=== PATIENT | female | born 1935 | race Two or more races ===

== ENCOUNTER 2025-06-02 10:56 | Inpatient (IN) | payer MEDICAID, OTHER ==
[~2025-06-02] VITALS: Ht 160 cm; Wt 44.5 kg
--- NOTE | 2025-06-02 11:11 | ECG ---
[facility] Test Date: 2025-06-02 Test Time: 11:10:12 Pat Name: KARTHIK BROCK Department: ED Room: 0220 Gender: F Linux Engineer: roderick : 1935 Requested By: POLO HWANG Order Number: [id number] Reading MD: Ricky Perez Measurements Intervals [place] Rate: 59 P: 0 CO: 163 QRS: 105 QRSD: 104 T: 125 QT: 406 QTc: 403 Interpretive Statements Right and left arm electrode reversal, interpretation assumes no reversal Sinus rhythm Right axis deviation Abnormal T, consider ischemia, lateral leads Baseline wander in lead(s) III Electronically Signed On 06-05-2025 18:15:05 PDT by Ricky Perez Please click the below link to view image of tracing.
--- NOTE | 2025-06-02 11:14 | ED.PDOC ---
GI ASSESSMENT HPI Comments 89-year-old female presents with a chief complaint of abdominal pain with associated nausea and vomiting. Patient states that her pain is localized to her epigastric region, nonradiating, nonexertional, and rates her pain a 8/10. Patient has a history of pancreatitis according to family. Patient was seen by her PMD yesterday and had a COVID-19 test done and it was negative. Patient recently travelled to [place] in February 2025. Patient is afebrile at 97.4F. 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 Family History Family History: Reviewed,noncontributory to illness Social History Smoker: Non-Smoker Alcohol: Denies ETOH Use Drugs: Denies Drug Use Lives In: Home Constitutional: denies: chills, diaphoresis, fatigue, fever, malaise, sweats, weakness, others EENTM: denies: blurred vision, double vision, ear bleeding, ear discharge, ear drainage, ear pain, ear ringing, eye pain, eye redness, hearing loss, mouth pain, mouth swelling, nasal discharge, nose bleeding, nose congestion, nose pain, photophobia, tearing, throat pain, throat swelling, voice changes, others Respiratory: denies: cough, hemoptysis, orthopnea, SOB at rest, shortness of breath, SOB with excertion, stridor, wheezing, others Cardiovascular: denies: chest pain, dizzy spells, diaphoresis, Dyspnea on exertion, edema, irregular heart beat, left arm pain, lightheadedness, palpitations, PND, syncope, others Gastrointestinal: reports: abdominal pain, nausea, vomiting; denies: abdomen distended, blood streaked bowels, constipated, diarrhea, dysphagia, difficulty swallowing, hematemesis, melena, poor appetite, poor fluid intake, rectal bleeding, rectal pain, others Genitourinary: denies: abnormal vagina bleeding, burning, dyspareunia, dysuria, flank pain, frequency, hematuria, incontinence, pain, , vagina discharge, urgency, others Neurological: denies: dizziness, fainting, headache, left sided numbness, left sided weakness, numbness, paresthesia, pre-existing deficit, right sided numb ness, right sided weakness, seizure, speech problems, tingling, tremors, weakness, others Musculoskeletal: denies: back pain, gout, joint pain, joint swelling, muscle pain, muscle stiffness, neck pain, others Integumetry: denies: bruises, change in color, change in hair/nails, dryness, laceration, lesions, lumps, rash, wounds, others Allergic/Immunocompromised: denies: Difficulty Healing, Frequent Infections, Hives, Itching, others Hematologic/Lymphatic: denies: anemia, blood clots, easy bleeding, easy bruising, swollen glands, others Endocrine: denies: excessive hunger, excessive sweating, excessive thirst, excessive urination, flushing, intolerance to cold, intolerance to heat, unexplained weight gain, unexplained weight loss, others Psychiatric: denies: anxiety, bipolar disorder, depression, hopeless, panic disorder, schizophrenia, sleepless, suicidal, others All Other Systems: Reviewed and Negative Physical Exam General Appearance: Moderate Distress (Suyo-qe-tdxigehu distress due to epigastric pain concerns.), Normal HEENT: Normal ENT Inspection, Pharynx Normal, TMs Normal Neck: Full Range of Motion, Non-Tender, Normal, Normal Inspection Respiratory: Chest Non-Tender, Lungs Clear, No Accessory Muscle Use, No Respiratory Distress, Normal Breath Sounds Cardiovascular: No Edema, No JVD, No Murmur, No Gallop, Normal Peripheral Pulses, Regular Rate/Rhythm Breast Exam: Deferred Gastrointestinal: No Pulsatile Mass, Normal Bowel Sounds, Other (Diffuse epigastric tenderness to palpation throughout. Abdomen was mildly rigid.) Genitalia: Deferred Pelvic: Deferred Rectal: Deferred Extremities: No calf tenderness, Normal capillary refill, Normal inspection, Normal range of motion, Non-tender, No pedal edema Musculoskeletal : Apperance: Normal Neurologic: Alert, No Motor Deficits, Normal Affect, Normal Mood, No Sensory Deficits Cerebellar Function: NOT DONE Reflexes: NOT DONE Skin: Dry, Normal Color, Warm Lymphatic: No Adenopathy Was a procedure done? Was a procedure done?: No GI differential Dx Differential Diagnosis: Bowel Obstruction, Cholangitis, Cholecystitis, Constipation, Gastritis/PUD, Gastroenteritis, Pancreatitis, UTI X-Ray, Labs, Meds, VS Vital Signs Date Time Temp Pulse Resp B/P (MAP) Pulse Ox O2 Delivery O2 Flow Rate FiO2 06/02/25 13:05 72 16 97 Room Air 06/02/25 12:48 97.9 72 18 144/48 (80) 97 97.9 06/02/25 11:10 59 06/02/25 10:59 97.0 62 16 148/57 97 97.0 Lab Test 06/02/25 12:39 06/02/25 11:45 Range/Units Troponin I High Sensitivity < 3 L < 3 L </=34 ng/L White Blood Count 19.2 H 4.4-10.8 10^3/uL Red Blood Count 3.66 L 4.0-5.20 10^6/uL Hemoglobin 11.4 L 12.2-16.2 g/dL Hematocrit 33.2 L 36.0-46.0 % Mean Corpuscular Volume 90.7 80.0-100.0 fL Mean Corpuscular Hemoglobin 31.1 28.0-32.0 pg Mean Corpuscular Hemoglobin Concent 34.3 32.0-36.0 g/dL Red Cell Distribution Width 12.9 11.8-14.3 % Platelet Count 222 140-450 10^3/uL Mean Platelet Volume 10.4 6.9-10.8 fL Neutrophils (%) (Auto) 85.4 H 37.0-80.0 % Lymphocytes (%) (Auto) 6.4 L 10.0-50.0 % Monocytes (%) (Auto) 7.9 0.0-12.0 % Eosinophils (%) (Auto) 0.1 0.0-7.0 % Basophils (%) (Auto) 0.2 0.0-2.0 % Neutrophils # (Auto) 16.4 H 1.6-8.6 10 ^3/uL Lymphocytes # (Auto) 1.2 0.4-5.4 10 ^3/uL Monocytes # (Auto) 1.5 H 0-1.3 10 ^3/uL Eosinophils # (Auto) 0 0-0.8 10 ^3/uL Basophils # (Auto) 0 0-0.2 10 ^3/uL Nucleated Red Blood Cells 0.0 % Sodium Level 139 136-145 mmol/L Potassium Level 4.1 3.5-5.1 mmol/L Chloride Level 106 98-107 mmol/L Carbon Dioxide Level 22 20-31 mmol/L Anion Gap 11 5-15 Blood Urea Nitrogen 27 H 9-23 mg/dL Creatinine 1.18 H 0.550-1.02 mg/dL Glomerular Filtration Rate Calc 45 >90 mL/min BUN/Creatinine Ratio 22.9 H 10.0-20.0 Serum Glucose 181 H 74-106 mg/dL Lactic Acid Level 2.4 *H 0.4-2.0 mmol/L Calcium Level 9.2 8.7-10.4 mg/dL Total Bilirubin 1.6 H 0.2-1.0 mg/dL Aspartate Amino Transferase (AST) 142 H 13-40 U/L Alanine Aminotransferase (ALT) 79 H 7-40 U/L Alkaline Phosphatase 158 H 46-116 U/L B-Type Natriuretic Peptide 165.24 0-100 pg/mL Total Protein 7.9 5.7-8.2 g/dL Albumin 4.6 3.2-4.8 g/dL Lipase > 3500 H 12-53 U/L Current Medications Medications (Trade) Dose Ordered Sig/Jorge Route Start Time Stop Time Status Last Admin Ondansetron HCl (Zofran) 4 mg ONCE ONCE IV 06/02/25 11:15 06/02/25 11:16 DC 06/02/25 13:42 Dicyclomine HCl (Bentyl Capsule) 10 mg ONCE ONCE PO 06/02/25 11:15 06/02/25 11:16 DC 06/02/25 12:56 X-Ray, Labs, Meds, VS Comment All studies performed of the ED today were evaluated by me personally. [place] [id number]. Anemia, what appears to be acute on chronic renal concerns as well as an elevated lactic acid and significant elevated lipase indicative of a pancreatitis event. Patient will be admitted for antibiotics and pain management concerns as well as possible nephro consult. Time of 1ST Reevaluation: 14:38 Reevaluation 1ST: Improved Consultation: PCP Patient Education/Counseling: Diagnosis, Treatment, Need For Follow Up Family Education/Counseling: Diagnosis, Treatment, No Family Present SEPSIS Sepsis Screen Date sepsis recognized/suspect: Jun 02, 2025 Time Sepsis recognized/suspect: 1104 Recent Procedure: No On Antibiotic Therapy: No Respiratory Rate >20: No Heart Rate >90: No Temp<36 C (96.8 F) or >38.3 C: No SBP <90 or MAP <65 mmHG: No New Acute Mental Status Change: No Is the patient on CPAP, BIPAP,: No Physician Orders Sodium Chloride 0.9% (06/02/25 11:15) Heplock Iv (06/02/25 ) Urinalysis (06/02/25 11:06) Troponin-I Hs (06/02/25 14:06) Vital Signs Date Time Temp Pulse Resp B/P (MAP) Pulse Ox O2 Delivery O2 Flow Rate FiO2 06/02/25 13:05 72 16 97 Room Air 06/02/25 12:48 97.9 72 18 144/48 (80) 97 97.9 06/02/25 11:10 59 06/02/25 10:59 97.0 62 16 148/57 97 97.0 Laboratory Tests Test 06/02/25 11:45 Lactic Acid Level 2.4 mmol/L (0.4-2.0) *H White Blood Count 19.2 10^3/uL (4.4-10.8) H Medications Medications Dose Ordered Sig/Jorge Route Start Time Stop Time Status Last Admin Dose Admin Dicyclomine HCl 10 mg ONCE ONCE PO 06/02/25 11:15 06/02/25 11:16 DC 06/02/25 12:56 Ondansetron HCl 4 mg ONCE ONCE IV 06/02/25 11:15 06/02/25 11:16 DC 06/02/25 13:42 Departure 1 Departure Time of Disposition: 14:38 Impression: Primary Impression: Pancreatitis Additional Impressions: [id number]-[id number] kidney injury Elevated lactic acid level Anemia Disposition: ADMITTED INPATIENT Condition: Stable Discharged With: Self, Relative Critical Care Note Critical Care Time?: No Stability Stability form required: No Heart Score Heart Score: Heart Score Response (Comments) Value History N/A 0 EKG N/A 0 Age N/A 0 Risk Factors N/A 0 Troponin N/A 0 Total 0 I personally scribed for POLO HWANG PAC ([email or web address]) on 06/02/25 at 11:14. Electronically submitted by Darshan Grady ([email or web address]). POLO HWANG PAC Jun 02, 2025 11:14
[2025-06-02] MEDS: SODIUM CHLORIDE 0.9% 1,000 ML IV ONE ×2 (11:15→20:46)
[2025-06-02 12:21] LABS: Hematocrit 33.2 % (36.0-46.0); Hemoglobin 11.4 g/dL (12.2-16.2); Mean Corpuscular Hemoglobin 31.1 pg (28.0-32.0); Mean Corpuscular Volume 90.7 fL (80.0-100.0); Nucleated Red Blood Cells % 0.0 %
[2025-06-02 12:25] LABS: Albumin 4.6 g/dL (3.2-4.8); Anion Gap 11 (5-15); BUN/Creatinine Ratio 22.9 (10.0-20.0); Calcium 9.2 mg/dL (8.7-10.4); Carbon Dioxide 22 mmol/L (20-31); Chloride 106 mmol/L (98-107); Potassium 4.1 mmol/L (3.5-5.1); Sodium 139 mmol/L (136-145); Total Protein 7.9 g/dL (5.7-8.2)
[2025-06-02 12:30] LABS: Alanine Aminotransferase 79 U/L (7-40); Alkaline Phosphatase 158 U/L (46-116); Bilirubin, Total 1.6 mg/dL (0.2-1.0); Blood Urea Nitrogen 27 mg/dL (9-23); Glucose 181 mg/dL (74-106)
[2025-06-02 12:33] LABS: Lactic Acid w/Reflex 2.4 mmol/L (0.4-2.0)
[2025-06-02 12:35] LABS: Lipase > 3500 U/L (12-53)
[2025-06-02] MEDS: DICYCLOMINE HCL 10 MG CAP PO ONE (12:56)
[2025-06-02] MEDS: ONDANSETRON HCL 4 MG/2 ML VIAL IV ONE (13:42)
[2025-06-02] MEDS ORDERED: PIPERACILLIN-TAZOB 3.375GM 100 ML IV ONE (14:45)
[2025-06-02] MEDS: MORPHINE SULFATE 4 MG/ML SYR/VIAL IV ONE (16:23)
[2025-06-02 16:34] VITALS: PULSE 73; RESP 14; O2SAT 97
--- NOTE | 2025-06-02 18:07 | DVHHP2 ---
Admitting Diagnosis: nausea and vomiting History of Present Illness 89-year-old female presents with a chief complaint of abdominal pain with associated nausea and vomiting. Patient states that her pain is localized to her epigastric region, nonradiating, nonexertional, and rates her pain a 8/10. Patient has a history of pancreatitis according to family. Patient was seen by her PMD yesterday and had a COVID-19 test done and it was negative. Patient recently travelled to [place] in February 2025. Patient is afebrile at 97.4F. 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 Mild distress HEENT-atraumatic normocephalic Heart-regular rate and rhythm Lungs clear to auscultate Abdomen soft, tender to palpate, nondistended Musculoskeletal-no edema cyanosis Neuro-AO x3, no focal deficits SEPSIS Sepsis Screen Date sepsis recognized/suspect: Jun 02, 2025 Time Sepsis recognized/suspect: 1104 Recent Procedure: No On Antibiotic Therapy: No Respiratory Rate >20: No Heart Rate >90: No Temp<36 C (96.8 F) or >38.3 C: No SBP <90 or MAP <65 mmHG: No New Acute Mental Status Change: No Is the patient on CPAP, BIPAP,: No Physician Orders Heplock Iv (06/02/25 ) Urinalysis (06/02/25 11:06) Ct Ab Pel Wo Con-No Oral Or Iv (06/02/25 19:17) Abdomen Limited (06/02/25 19:17) NS (06/02/25 19:30) Ceftriaxone Ivpb Rocephin (06/03/25 09:00) Metronidazole Ivpb Flagyl (06/02/25 22:00) Complete Blood Count (06/03/25 05:00) Complete Blood Count (06/04/25 05:00) Complete Blood Count (06/05/25 05:00) Complete Blood Count (06/06/25 05:00) Complete Blood Count (06/07/25 05:00) Comprehensive Metabolic Panel (06/03/25 05:00) Comprehensive Metabolic Panel (06/04/25 05:00) Comprehensive Metabolic Panel (06/05/25 05:00) Comprehensive Metabolic Panel (06/06/25 05:00) Comprehensive Metabolic Panel (06/07/25 05:00) Magnesium (06/03/25 05:00) Magnesium (06/04/25 05:00) Magnesium (06/05/25 05:00) Magnesium (06/06/25 05:00) Magnesium (06/07/25 05:00) Admit (06/02/25 19:17) Code Status (06/02/25:17) Vital Signs .PER UNIT PROTOCOL (06/02/25 19:17) Review Orders With Adm.Md (06/02/25 19:17) Encourage Activity As Tolerate (06/02/25 19:17) Npo (Nothing By Mouth) Diet (06/03/25 Breakfast) Sodium Chloride Lock (Saline Lock Ns) (06/02/25 22:00) Docusate Sodium Capsule (Colace Capsule) (06/02/25 19:30) Acetaminophen Tablet (Tylenol Tablet) (06/02/25 19:30) Notify Md Of Changes From Base (06/02/25 19:17) Advance Directive (06/02/25 19:17) Patient Condition (06/02/25 19:17) Allergies (06/02/25 19:17) Hydrocodone-Acet 5/325mg Tab (Purdys 5/32 (06/02/25 19:30) Ondansetron Hcl (Zofran) (06/02/25 19:30) Lovenox 40mg (06/03/25 10:00) Vital Signs Date Time Temp Pulse Resp B/P (MAP) Pulse Ox O2 Delivery O2 Flow Rate FiO2 06/02/25 17:59 98.7 90 20 155/67 (96) 94 98.7 06/02/25 16:34 73 14 97 Room Air* 0 21 06/02/25 16:32 98.3 73 14 144/93 (110) 97 98.3 06/02/25 16:23 73 14 144/53 06/02/25 13:05 72 16 97 Room Air 06/02/25 12:48 97.9 72 18 144/48 (80) 97 97.9 06/02/25 11:10 59 06/02/25 10:59 97.0 62 16 148/57 97 97.0 Laboratory Tests Test 06/02/25 11:45 06/02/25 14:37 Lactic Acid Level 2.4 mmol/L (0.4-2.0) *H 2.2 mmol/L (0.4-2.0) *H White Blood Count 19.2 10^3/uL (4.4-10.8) H Medications Medications Dose Ordered Sig/Jorge Route Start Time Stop Time Status Last Admin Dose Admin Dicyclomine HCl 10 mg ONCE ONCE PO 06/02/25 11:15 06/02/25 11:16 DC 06/02/25 12:56 Morphine Sulfate 3 mg ONCE ONCE IV 06/02/25 14:30 06/02/25 14:31 DC 06/02/25 16:23 Ondansetron HCl 4 mg ONCE ONCE IV 06/02/25 11:15 06/02/25 11:16 DC 06/02/25 13:42 Piperacillin Sod/ Tazobactam Sod 100 ml @ 100 mls/hr ONCE ONCE IV 06/02/25 16:45 06/02/25 17:44 DC 06/02/25 18:43 Results Labs Test 06/02/25 14:37 06/02/25 11:45 06/02/25 11:21 Range/Units Lactic Acid Level 2.2 *H 0.4-2.0 mmol/L Troponin I High Sensitivity 3 L </=34 ng/L White Blood Count 19.2 H 4.4-10.8 10^3/uL Red Blood Count 3.66 L 4.0-5.20 10^6/uL Hemoglobin 11.4 L 12.2-16.2 g/dL Hematocrit 33.2 L 36.0-46.0 % Mean Corpuscular Volume 90.7 80.0-100.0 fL Mean Corpuscular Hemoglobin 31.1 28.0-32.0 pg Mean Corpuscular Hemoglobin Concent 34.3 32.0-36.0 g/dL Red Cell Distribution Width 12.9 11.8-14.3 % Platelet Count 222 140-450 10^3/uL Mean Platelet Volume 10.4 6.9-10.8 fL Neutrophils (%) (Auto) 85.4 H 37.0-80.0 % Lymphocytes (%) (Auto) 6.4 L 10.0-50.0 % Monocytes (%) (Auto) 7.9 0.0-12.0 % Eosinophils (%) (Auto) 0.1 0.0-7.0 % Basophils (%) (Auto) 0.2 0.0-2.0 % Neutrophils # (Auto) 16.4 H 1.6-8.6 10 ^3/uL Lymphocytes # (Auto) 1.2 0.4-5.4 10 ^3/uL Monocytes # (Auto) 1.5 H 0-1.3 10 ^3/uL Eosinophils # (Auto) 0 0-0.8 10 ^3/uL Basophils # (Auto) 0 0-0.2 10 ^3/uL Nucleated Red Blood Cells 0.0 % Sodium Level 139 136-145 mmol/L Potassium Level 4.1 3.5-5.1 mmol/L Chloride Level 106 98-107 mmol/L Carbon Dioxide Level 22 20-31 mmol/L Anion Gap 11 5-15 Blood Urea Nitrogen 27 H 9-23 mg/dL Creatinine 1.18 H 0.550-1.02 mg/dL Glomerular Filtration Rate Calc 45 >90 mL/min BUN/Creatinine Ratio 22.9 H 10.0-20.0 Serum Glucose 181 H 74-106 mg/dL Calcium Level 9.2 8.7-10.4 mg/dL Total Bilirubin 1.6 H 0.2-1.0 mg/dL Aspartate Amino Transferase (AST) 142 H 13-40 U/L Alanine Aminotransferase (ALT) 79 H 7-40 U/L Alkaline Phosphatase 158 H 46-116 U/L B-Type Natriuretic Peptide 165.24 0-100 pg/mL Total Protein 7.9 5.7-8.2 g/dL Albumin 4.6 3.2-4.8 g/dL Lipase > 3500 H 12-53 U/L Primary Diagnosis Abdominal pain suspect acute pancreatitis Elevated LFTs Elevated lipase Sepsis due to intra-abdominal infection Plan Elevated WBC, elevated lactic acid, elevated lipase Start ceftriaxone, Flagyl for intra-abdominal infection Check CT scan of the abdomen and pelvis to assess for infection Ultrasound abdomen to assess for gallstones If positive stone, check MRCP for possible choledocholithiasis. If confirm choledocholithiasis consult [facility] on-call Pain control IV fluids NPO except meds Full code Lovenox for DVT prophylaxis PPI for GI prophylaxis Plan discussed with: Patient Problems List: (1) Elevated lactic acid level Status: Acute (2) Pancreatitis Status: Acute Date of Service: Jun 02, 2025 Billing Provider: KRISTA TRIPLETT MD Common Visit Codes: 23469-NCRNMOD INP/OBS CARE (HIGH) KRISTA TRIPLETT MD Jun 02, 2025 18:07
[2025-06-02] MEDS: PIPERACILLIN-TAZOB 3.375GM 100 ML IV ONE (18:43)
[2025-06-02] MEDS ORDERED: DOCUSATE SOD 100 MG CAP PO PRN (19:30)
[2025-06-02] MEDS ORDERED: ACETAMINOPHEN 325 MG TAB PO PRN (19:30)
[2025-06-02] MEDS ORDERED: ONDANSETRON HCL 4 MG/2 ML VIAL IV PRN (19:30)
[2025-06-02] MEDS ORDERED: HYDROcodone-ACET 5/325MG TAB PO PRN (19:30)
[2025-06-02 19:36] LABS: Urine Protein, UAD 1+ (Negative)
--- NOTE | 2025-06-02 20:18 | DVH ---
Procedure: US ABDOMEN LIMITED Study Date and Requested Time: 06/02/2025 07:20 PM History: check RUQ for gall stones Comparison: None Technique: Multiple high resolution dejesus-scale images obtained of the right upper quadrant of the abd omen with color Doppler for evaluation of blood flow and vascularity as indicated. Findings: Liver normal in size, measuring 12.8 cm in length, with homogenous echotexture and normal contours. N o evidence of focal hepatic lesions, intrahepatic or extrahepatic ductal dilatation. Common bile duct measures 0.8 cm in diameter. Sludge within the gallbladder with nonspecific gallbladder wall thickening at 10 mm with small amount of fluid within the wall. No evidence of cholelithiasis. Negative sonographic Jerome's sign. Pancreas only partially visualized due to overlying bowel gas but is otherwise unremarkable. Right kidney measures 7 cm in length, with normal contours, and increased echogenicity. Decreased brien al cortical thickness at 7 mm. No evidence of hydronephrosis, calculi, cystic or solid renal lesions. The left kidney measures up to 9.4 cm with increased echogenicity. No evidence of Left renal Hydronep hrosis or renal calculi. Partially visualized inferior vena cava unremarkable. Impression: Limited evaluation due to patient being unable to hold respiration. Possible sludge within the gallbladder with nonspecific Significant gallbladder wall thickening. No c holelithiasis. Negative sonographic jerome's sign. Acalculous cholecystitis can not be completely ex cluded. Slightly increased echogenicity of bilateral kidneys which may be seen with medical renal disease. Mi ld atrophy of the right kidney.
--- NOTE | 2025-06-02 21:56 | DVH ---
CT SCAN ABDOMEN AND PELVIS WITHOUT CONTRAST CLINICAL HISTORY: assess for pancreatitis TECHNIQUE: Helical axial images are obtained from the lung bases through the pelvis without oral cont rast. No intravenous contrast was administered. Coronal and sagittal reformatted images were generate d from thin section reconstructions. One or more of the following radiation dose reduction techniques were used for this examination: automated exposure control, adjustment of the mA and/or kV according to patient size, use of iterative reconstruction technique. COMPARISON: Ultrasound obtained earlier the same day. FINDINGS: LOWER THORAX: Interstitial prominence in the lower lobe may be in part related to edema. Dependent atelectatic vernon ges. ABDOMEN AND PELVIS: Evaluation of visceral and vascular structures is limited due to lack of contrast administration. As visualized, the unenhanced liver, spleen and adrenals appear grossly unremarkable. No sizable peripancreatic fluid collections or inflammatory changes noted at this time. The gallbladder is mildly distended. Layering sludge / small calculi. Question mild gallbladder wall thickening. No hydroureteronephrosis. Cystic hypodensity in the medial left renal lower pole. Punctate nonobstr ucting right lower pole nephrolith. Aortoiliac atherosclerotic calcifications. No evidence of abdominal aortic aneurysm. No evidence of bowel obstruction. Normal caliber appendix. No free intraperitoneal air or fluid ident ified. Nondependent air within the urinary bladder. No sizable bladder calculus. No destructive osseous lesions identified. IMPRESSION: No CT evidence to suggest pancreatitis at this time. Please note that this does not exclude a clinica l diagnosis. Cholelithiasis/layering sludge within the gallbladder. If there is persistent concern for cholecysti tis, HIDA scan may be considered to further evaluate. A few other ancillary findings as above.
[2025-06-02] MEDS: SODIUM CHLOR 0.9% PF (SALINE LOCK) 10ML VIAL/SYR IV SCH (22:07)
[2025-06-03 01:00] VITALS: BP 145/62; PULSE 69; RESP 19; TEMP 98.1; O2SAT 96
[2025-06-03 01:34] VITALS: BP 151/55; PULSE 70; PULSE 91; RESP 16; TEMP 97.9; O2SAT 91
[2025-06-03 05:00] VITALS: BP 140/63; PULSE 74; RESP 19; TEMP 98.3; O2SAT 95
[2025-06-03] MEDS ORDERED: GLIM2TAB33 PO (07:46)
[2025-06-03] MEDS ORDERED: ISOS5TAB PO (07:46)
[2025-06-03] MEDS ORDERED: CEPH500C PO (07:46)
[2025-06-03 07:48] LABS: Hematocrit 30.5 % (36.0-46.0); Hemoglobin 10.6 g/dL (12.2-16.2); Mean Corpuscular Hemoglobin 31.1 pg (28.0-32.0); Mean Corpuscular Volume 89.5 fL (80.0-100.0); Nucleated Red Blood Cells % 0.0 %
[2025-06-03 07:55] LABS: Albumin 4.3 g/dL (3.2-4.8); Anion Gap 12 (5-15); BUN/Creatinine Ratio 23.4 (10.0-20.0); Carbon Dioxide 22 mmol/L (20-31); Magnesium 2.2 mg/dL (1.6-2.6); Potassium 4.2 mmol/L (3.5-5.1); Sodium 142 mmol/L (136-145); Total Protein 7.2 g/dL (5.7-8.2)
[2025-06-03 08:18] LABS: Alanine Aminotransferase 124 U/L (7-40); Alkaline Phosphatase 180 U/L (46-116); Bilirubin, Total 1.3 mg/dL (0.2-1.0); Blood Urea Nitrogen 30 mg/dL (9-23); Calcium 8.7 mg/dL (8.7-10.4); Chloride 108 mmol/L (98-107); Glucose 108 mg/dL (74-106)
[2025-06-03] MEDS: PANTOPRAZOLE 40 MG/10 ML VIAL INJ IV SCH (10:05)
[2025-06-03] MEDS: cefTRIAXone 1GM/50ML D5W 50 ML IV SCH (10:05)
[2025-06-03] MEDS: ENOXAPARIN SOD 40 MG/0.4 ML SYRINGE SC SCH (10:05)
[2025-06-03 16:16] LABS: Amylase 999 U/L (30-118)
[2025-06-03 16:22] LABS: Lipase 1475 U/L (12-53)
--- NOTE | 2025-06-03 16:31 | DVHPN2 ---
Subjective I am assuming the care of the patient from today onwards who was admitted for acute pancreatitis. Patient's lipase is trending down currently denies any abdominal pain nausea and vomiting and currently on clear liquid diet. 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 Medications Current Medications Medications Dose Ordered Sig/Jorge Route Start Time Stop Time Status Last Admin Dose Admin Ceftriaxone Sodium 50 ml @ 100 mls/hr DAILY@09 IV 06/03/25 09:00 06/03/25 10:05 100 MLS/HR Sodium Chloride 10 ml Q8HR IV 06/02/25 22:00 06/03/25 14:06 10 ML Docusate Sodium 100 mg BIDPRN PRN PO 06/02/25 19:30 Acetaminophen 650 mg Q6HP PRN PO 06/02/25 19:30 Acetaminophen/ Hydrocodone Bitart 1 tab Q4HP PRN PO 06/02/25 19:30 Ondansetron HCl 4 mg Q4HP PRN IV 06/02/25 19:30 Enoxaparin Sodium 40 mg DAILY SC 06/03/25 10:00 06/03/25 10:05 40 MG Pantoprazole Sodium 40 mg DAILY IV 06/03/25 10:00 06/03/25 10:05 40 MG Metronidazole 100 ml @ 100 mls/hr Q8H IV 06/03/25 09:00 06/03/25 10:05 100 MLS/HR Laboratory Results Laboratory Tests 06/03/25 07:11 Chemistry Test 06/03/25 07:11 Albumin 4.3 g/dL (3.2-4.8) Calcium Level 8.7 mg/dL (8.7-10.4) Magnesium Level 2.2 mg/dL (1.6-2.6) Total Protein 7.2 g/dL (5.7-8.2) Lipid panel Test 06/03/25 07:11 Lipase 1475 U/L (12-53) H LFT Test 06/03/25 07:11 Alanine Aminotransferase (ALT) 124 U/L (7-40) H Alkaline Phosphatase 180 U/L (46-116) H Aspartate Amino Transferase (AST) 164 U/L (13-40) H Total Bilirubin 1.3 mg/dL (0.2-1.0) H Urinalysis Test 06/02/25 11:21 Urine Color Yellow (Yellow) Urine Clarity Cloudy (Clear) Urine pH 5.5 (5.0-9.0) Urine Specific [place] 1.022 (1.001-1.035) Urine Protein 1+ (Negative) H Urine Ketones 1+ (Negative) H Urine Blood 2+ /uL (Negative) H Urine Nitrite Negative (Negative) Urine Bilirubin 1+ (Negative) H Urine Urobilinogen Normal mg/dL (Negative) Urine Leukocyte Esterase 3+ /uL (Negative) Urine RBC None seen /hpf (0 - 4) Urine Microscopic WBC 10 /HPF (0-5) H Urine Squamous Epithelial Cells Many /hpf (<5) Urine Bacteria None seen /hpf (None Seen) Urine Glucose Normal mg/dL (Normal) Assessment/Plan Assessment/Plan 89-year-old female with a no significant past medical history besides previous history of pancreatitis presented to the hospital with the abdominal pain nausea and vomiting found to have 1. Acute pancreatitis with a previous history of chronic pancreatitis 2. Elevated amylase lipase secondary to 1. 3. Transaminitis 4. Gallbladder sludge rule out acalculous cholecystitis 5. Leukocytosis 6. Urinary tract infection 7. Lactic acidosis 8. Sepsis secondary to UTI -IV fluids, IV antibiotics, follow up urine culture, start clear liquid diet, repeat amylase lipase Plan discussed with: Patient My Orders Orders - IRMA CASTRO MD Procedure Category Date Status Time * Gi Dvh Gameplay Programmer CONS 06/03/25 Transmitted 15:49 * Surgical Consult CONS 06/03/25 Transmitted Date of Service: Jun 03, 2025 Billing Provider: IRMA CASTRO MD Common Visit Codes: [id number] INP/OBS CARE(MOD) IRMA CASTRO MD Jun 03, 2025 16:31
[2025-06-03 22:58] VITALS: BP 154/81; PULSE 75; RESP 18; TEMP 97.9; O2SAT 96
[2025-06-04] VITALS (9 sets, daily range): BP systolic 139–166; BP diastolic 65–84; PULSE 58–85; RESP 14–19; TEMP 97.9–98.8; O2SAT 94–97
[2025-06-04 07:49] LABS: Hematocrit 32.2 % (36.0-46.0); Hemoglobin 11.0 g/dL (12.2-16.2); Mean Corpuscular Hemoglobin 31.1 pg (28.0-32.0); Mean Corpuscular Volume 91.1 fL (80.0-100.0); Nucleated Red Blood Cells % 0.0 %
[2025-06-04 08:00] LABS: Alanine Aminotransferase 87 U/L (7-40); Albumin 4.4 g/dL (3.2-4.8); Alkaline Phosphatase 193 U/L (46-116); Anion Gap 13 (5-15); BUN/Creatinine Ratio 16.5 (10.0-20.0); Blood Urea Nitrogen 17 mg/dL (9-23); Calcium 9.1 mg/dL (8.7-10.4); Carbon Dioxide 18 mmol/L (20-31); Chloride 107 mmol/L (98-107); Glucose 84 mg/dL (74-106); Magnesium 2.2 mg/dL (1.6-2.6); Potassium 3.9 mmol/L (3.5-5.1); Sodium 138 mmol/L (136-145); Total Protein 7.4 g/dL (5.7-8.2)
[2025-06-04 08:01] LABS: Bilirubin, Total 0.7 mg/dL (0.2-1.0)
[2025-06-04] MEDS: hydrALAZINE HCL 20 MG/ML VL IV PRN (09:20)
[2025-06-04 10:32] LABS: Lipase 421 U/L (12-53)
[2025-06-04 10:34] LABS: Amylase 338 U/L (30-118)
[2025-06-04] MEDS ORDERED: NIFE1TAB31 PO (10:54)
[2025-06-04] MEDS ORDERED: LOSA-534 PO (10:54)
--- NOTE | 2025-06-04 12:20 | DVHPN2 ---
Subjective Patient's lipase is trending down currently denies any abdominal pain nausea and vomiting and currently on clear liquid diet. 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 Medications Current Medications Medications Dose Ordered Sig/Jorge Route Start Time Stop Time Status Last Admin Dose Admin Ceftriaxone Sodium 50 ml @ 100 mls/hr DAILY@09 IV 06/03/25 09:00 06/04/25 09:21 100 MLS/HR Sodium Chloride 10 ml Q8HR IV 06/02/25 22:00 06/04/25 05:58 10 ML Docusate Sodium 100 mg BIDPRN PRN PO 06/02/25 19:30 Acetaminophen 650 mg Q6HP PRN PO 06/02/25 19:30 Acetaminophen/ Hydrocodone Bitart 1 tab Q4HP PRN PO 06/02/25 19:30 Ondansetron HCl 4 mg Q4HP PRN IV 06/02/25 19:30 Enoxaparin Sodium 40 mg DAILY SC 06/03/25 10:00 06/04/25 09:22 40 MG Pantoprazole Sodium 40 mg DAILY IV 06/03/25 10:00 06/04/25 09:21 40 MG Metronidazole 100 ml @ 100 mls/hr Q8H IV 06/03/25 09:00 06/04/25 09:22 100 MLS/HR Hydralazine HCl 10 mg Q4HPRN PRN IV 06/04/25 09:00 06/04/25 09:20 10 MG Laboratory Results Laboratory Tests 06/04/25 07:01 Chemistry Test 06/04/25 07:01 Albumin 4.4 g/dL (3.2-4.8) Calcium Level 9.1 mg/dL (8.7-10.4) Magnesium Level 2.2 mg/dL (1.6-2.6) Total Protein 7.4 g/dL (5.7-8.2) Lipid panel Test 06/04/25 07:01 Lipase 421 U/L (12-53) H LFT Test 06/04/25 07:01 Alanine Aminotransferase (ALT) 87 U/L (7-40) H Alkaline Phosphatase 193 U/L (46-116) H Aspartate Amino Transferase (AST) 87 U/L (13-40) H Total Bilirubin 0.7 mg/dL (0.2-1.0) Urinalysis Test 06/02/25 11:21 Urine Color Yellow (Yellow) Urine Clarity Cloudy (Clear) Urine pH 5.5 (5.0-9.0) Urine Specific [place] 1.022 (1.001-1.035) Urine Protein 1+ (Negative) H Urine Ketones 1+ (Negative) H Urine Blood 2+ /uL (Negative) H Urine Nitrite Negative (Negative) Urine Bilirubin 1+ (Negative) H Urine Urobilinogen Normal mg/dL (Negative) Urine Leukocyte Esterase 3+ /uL (Negative) Urine RBC None seen /hpf (0 - 4) Urine Microscopic WBC 10 /HPF (0-5) H Urine Squamous Epithelial Cells Many /hpf (<5) Urine Bacteria None seen /hpf (None Seen) Urine Glucose Normal mg/dL (Normal) Assessment/Plan Assessment/Plan 89-year-old female with a no significant past medical history besides previous history of pancreatitis presented to the hospital with the abdominal pain nausea and vomiting found to have 1. Acute pancreatitis with a previous history of chronic pancreatitis 2. Elevated amylase lipase secondary to 1. 3. Transaminitis 4. Gallbladder sludge rule out acalculous cholecystitis 5. Leukocytosis 6. Urinary tract infection 7. Lactic acidosis 8. Sepsis secondary to UTI -IV fluids, IV antibiotics, follow up urine culture, s repeat amylase lipase -advanced diet as tolerated. Plan discussed with: Patient, Daughter My Orders Orders - IRMA CASTRO MD Procedure Category Date Status Time * Gi Dvh Elevator Constructor CONS 06/03/25 Transmitted 15:49 * Surgical Consult CONS 06/03/25 Transmitted Hydralazine Injection PHA 06/04/25 In Process (Apresoline Inject 09:00 Date of Service: Jun 04, 2025 Billing Provider: IRMA CASTRO MD Common Visit Codes: [id number] INP/OBS CARE(MOD) IRMA CASTRO MD Jun 04, 2025 12:20
--- NOTE | 2025-06-04 15:47 | DVHINCON2 ---
Date of service: Jun 04, [address] Beckett Reason for Consultation Pancreatitis History of Present Illness 89-year-old female presents with a chief complaint of abdominal pain with associated nausea and bilious vomiting. Patient states that her pain is localized to her epigastric region, nonradiating, nonexertional, and rates her pain a 8/10. Patient has a history of pancreatitis according to family. Patient was seen by her PMD yesterday and had a COVID-19 test done and it was negative. Patient recently travelled to [place] in February 2025. Patient is afebrile at 97.4F. Today patient's lipase is trending down currently denies any abdominal pain nausea and vomiting and currently on clear liquid diet. Past Medical History Hypertension Pancreatitis UTI Past Surgical History Negative Family History: Hypertension G8 MOTHER Allergies: Coded Allergies: NO KNOWN ALLERGIES (Unverified , 06/02/25) Home Meds Reported Medications Nifedipine (Nifedipine Er) 30 Mg Tab, 1 TAB PO DAILY, #90 TAB 1 Refill 06/04/25 Losartan Potassium (Losartan Potassium) 50 Mg Tab, 50 MG PO DAILY for 30 Days, MG 06/04/25 Isosorbide Dinitrate (Isosorbide Dinitrate) 5 Mg Tab, 5 MG PO HS for 30 Days, MG 06/03/25 Glimepiride (Glimepiride) 2 Mg Tab, 2 MG PO DAILY for 30 Days, MG 06/03/25 Cephalexin Monohydrate (Cephalexin) 500 Mg Cap, 1 CAP PO DAILY for 7 Days, #40 CAP 06/03/25 Current Medications Current Medications Medications (Trade) Dose Ordered Sig/Jorge Route PRN Reason Start Time Stop Time Status Last Admin Hydralazine HCl (Apresoline Injection) 10 mg Q4HPRN PRN IV SBP>150 06/04/25 09:00 06/04/25 09:20 Vital Signs Vital Signs Date Time Temp Pulse Resp B/P (MAP) Pulse Ox O2 Delivery O2 Flow Rate FiO2 06/04/25 14:00 98.0 75 14 139/69 (92) 97 98.0 06/04/25 08:00 Room Air* 0 21 Physical Exam HEENT pupils are reactive Neck is supple CV is S1-S2 regular rate and rhythm Respiratory diminished breath sounds bases GI positive bowel sound , soft nondistended nontender no guarding no rigidity Extremity no edema 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 Labs/Diagnostic Data Labs Test 06/04/25 07:01 06/02/25 14:37 06/02/25 11:45 06/02/25 11:21 Range/Units White Blood Count 8.1 # 4.4-10.8 10^3/uL Red Blood Count 3.54 L 4.0-5.20 10^6/uL Hemoglobin 11.0 L 12.2-16.2 g/dL Hematocrit 32.2 L 36.0-46.0 % Mean Corpuscular Volume 91.1 80.0-100.0 fL Mean Corpuscular Hemoglobin 31.1 28.0-32.0 pg Mean Corpuscular Hemoglobin Concent 34.2 32.0-36.0 g/dL Red Cell Distribution Width 13.3 11.8-14.3 % Platelet Count 204 140-450 10^3/uL Mean Platelet Volume 10.8 6.9-10.8 fL Neutrophils (%) (Auto) 59.5 37.0-80.0 % Lymphocytes (%) (Auto) 29.0 10.0-50.0 % Monocytes (%) (Auto) 8.1 0.0-12.0 % Eosinophils (%) (Auto) 2.7 0.0-7.0 % Basophils (%) (Auto) 0.7 0.0-2.0 % Neutrophils # (Auto) 4.8 1.6-8.6 10 ^3/uL Lymphocytes # (Auto) 2.3 0.4-5.4 10 ^3/uL Monocytes # (Auto) 0.6 0-1.3 10 ^3/uL Eosinophils # (Auto) 0.2 0-0.8 10 ^3/uL Basophils # (Auto) 0.1 0-0.2 10 ^3/uL Nucleated Red Blood Cells 0.0 % Sodium Level 138 136-145 mmol/L Potassium Level 3.9 3.5-5.1 mmol/L Chloride Level 107 98-107 mmol/L Carbon Dioxide Level 18 L 20-31 mmol/L Anion Gap 13 5-15 Blood Urea Nitrogen 17 # 9-23 mg/dL Creatinine 1.03 H 0.550-1.02 mg/dL Glomerular Filtration Rate Calc 53 >90 mL/min BUN/Creatinine Ratio 16.5 10.0-20.0 Serum Glucose 84 74-106 mg/dL Lactic Acid Level 1.1 0.4-2.0 mmol/L Calcium Level 9.1 8.7-10.4 mg/dL Magnesium Level 2.2 1.6-2.6 mg/dL Total Bilirubin 0.7 0.2-1.0 mg/dL Aspartate Amino Transferase (AST) 87 H 13-40 U/L Alanine Aminotransferase (ALT) 87 H 7-40 U/L Alkaline Phosphatase 193 H 46-116 U/L Total Protein 7.4 5.7-8.2 g/dL Albumin 4.4 3.2-4.8 g/dL Amylase Level 338 H 30-118 U/L Lipase 421 H 12-53 U/L Troponin I High Sensitivity 3 L </=34 ng/L B-Type Natriuretic Peptide 165.24 0-100 pg/mL Urine Color Yellow Yellow Urine Clarity Cloudy Clear Urine pH 5.5 5.0-9.0 Urine Specific [place] 1.022 1.001-1.035 Urine Protein 1+ H Negative Urine Ketones 1+ H Negative Urine Blood 2+ H Negative /uL Urine Nitrite Negative Negative Urine Bilirubin 1+ H Negative Urine Urobilinogen Normal Negative mg/dL Urine Leukocyte Esterase 3+ Negative /uL Urine RBC None seen 0 - 4 /hpf Urine Microscopic WBC 10 H 0-5 /HPF Urine Squamous Epithelial Cells Many <5 /hpf Urine Bacteria None seen None Seen /hpf Urine Glucose Normal Normal mg/dL RUQ USG Impression: Limited evaluation due to patient being unable to hold respiration. Possible sludge within the gallbladder with nonspecific Significant gallbladder wall thickening. No cholelithiasis. Negative sonographic ashraf's sign. Acalculous cholecystitis can not be completely excluded. Slightly increased echogenicity of bilateral kidneys which may be seen with medical renal disease. Mild atrophy of the right kidney. CT SCAN ABD PELVIS IMPRESSION: No CT evidence to suggest pancreatitis at this time. Please note that this does not exclude a clinical diagnosis. Cholelithiasis/layering sludge within the gallbladder. If there is persistent concern for cholecystitis, HIDA scan may be considered to further evaluate. A few other ancillary findings as above. Problems(with codes): (1) Gallstones (2) Elevated liver enzymes (3) UTI (urinary tract infection) (4) Leukocytosis (5) Pancreatitis (6) Elevated lactic acid level (7) [id number] kidney injury (8) Anemia Plan/Recommendation Assessment and plan Patient likely has cholelithiasis with cholecystitis and possible gallstone pancreatitis Patient's leukocytosis and clinical picture is improving with IV fluid hydration and IV antibiotics Surgical consult is pending Monitor labs Clear liquid diet I will follow up patient with you Plan discussed with: Other (Nurse) THOMAS OLVERA MD Jun 04, 2025 15:47
--- NOTE | 2025-06-04 17:57 | DVHINCON2 ---
Date of service: Jun 04, 2025 Family History: Hypertension G8 MOTHER Allergies: Coded Allergies: NO KNOWN ALLERGIES (Unverified , 06/02/25) Home Meds Reported Medications Nifedipine (Nifedipine Er) 30 Mg Tab, 1 TAB PO DAILY, #90 TAB 1 Refill 06/04/25 Losartan Potassium (Losartan Potassium) 50 Mg Tab, 50 MG PO DAILY for 30 Days, MG 06/04/25 Isosorbide Dinitrate (Isosorbide Dinitrate) 5 Mg Tab, 5 MG PO HS for 30 Days, MG 06/03/25 Glimepiride (Glimepiride) 2 Mg Tab, 2 MG PO DAILY for 30 Days, MG 06/03/25 Cephalexin Monohydrate (Cephalexin) 500 Mg Cap, 1 CAP PO DAILY for 7 Days, #40 CAP 06/03/25 Current Medications Current Medications Medications (Trade) Dose Ordered Sig/Jorge Route PRN Reason Start Time Stop Time Status Last Admin Hydralazine HCl (Apresoline Injection) 10 mg Q4HPRN PRN IV SBP>150 06/04/25 09:00 06/04/25 17:01 Vital Signs Vital Signs Date Time Temp Pulse Resp B/P (MAP) Pulse Ox O2 Delivery O2 Flow Rate FiO2 06/04/25 17:01 154/71 06/04/25 16:54 98.8 74 18 95 98.8 06/04/25 08:00 Room Air* 0 21 Labs/Diagnostic Data Labs Test 06/04/25 07:01 06/02/25 14:37 06/02/25 11:45 06/02/25 11:21 Range/Units White Blood Count 8.1 # 4.4-10.8 10^3/uL Red Blood Count 3.54 L 4.0-5.20 10^6/uL Hemoglobin 11.0 L 12.2-16.2 g/dL Hematocrit 32.2 L 36.0-46.0 % Mean Corpuscular Volume 91.1 80.0-100.0 fL Mean Corpuscular Hemoglobin 31.1 28.0-32.0 pg Mean Corpuscular Hemoglobin Concent 34.2 32.0-36.0 g/dL Red Cell Distribution Width 13.3 11.8-14.3 % Platelet Count 204 140-450 10^3/uL Mean Platelet Volume 10.8 6.9-10.8 fL Neutrophils (%) (Auto) 59.5 37.0-80.0 % Lymphocytes (%) (Auto) 29.0 10.0-50.0 % Monocytes (%) (Auto) 8.1 0.0-12.0 % Eosinophils (%) (Auto) 2.7 0.0-7.0 % Basophils (%) (Auto) 0.7 0.0-2.0 % Neutrophils # (Auto) 4.8 1.6-8.6 10 ^3/uL Lymphocytes # (Auto) 2.3 0.4-5.4 10 ^3/uL Monocytes # (Auto) 0.6 0-1.3 10 ^3/uL Eosinophils # (Auto) 0.2 0-0.8 10 ^3/uL Basophils # (Auto) 0.1 0-0.2 10 ^3/uL Nucleated Red Blood Cells 0.0 % Sodium Level 138 136-145 mmol/L Potassium Level 3.9 3.5-5.1 mmol/L Chloride Level 107 98-107 mmol/L Carbon Dioxide Level 18 L 20-31 mmol/L Anion Gap 13 5-15 Blood Urea Nitrogen 17 # 9-23 mg/dL Creatinine 1.03 H 0.550-1.02 mg/dL Glomerular Filtration Rate Calc 53 >90 mL/min BUN/Creatinine Ratio 16.5 10.0-20.0 Serum Glucose 84 74-106 mg/dL Lactic Acid Level 1.1 0.4-2.0 mmol/L Calcium Level 9.1 8.7-10.4 mg/dL Magnesium Level 2.2 1.6-2.6 mg/dL Total Bilirubin 0.7 0.2-1.0 mg/dL Aspartate Amino Transferase (AST) 87 H 13-40 U/L Alanine Aminotransferase (ALT) 87 H 7-40 U/L Alkaline Phosphatase 193 H 46-116 U/L Total Protein 7.4 5.7-8.2 g/dL Albumin 4.4 3.2-4.8 g/dL Amylase Level 338 H 30-118 U/L Lipase 421 H 12-53 U/L Troponin I High Sensitivity 3 L </=34 ng/L B-Type Natriuretic Peptide 165.24 0-100 pg/mL Urine Color Yellow Yellow Urine Clarity Cloudy Clear Urine pH 5.5 5.0-9.0 Urine Specific [place] 1.022 1.001-1.035 Urine Protein 1+ H Negative Urine Ketones 1+ H Negative Urine Blood 2+ H Negative /uL Urine Nitrite Negative Negative Urine Bilirubin 1+ H Negative Urine Urobilinogen Normal Negative mg/dL Urine Leukocyte Esterase 3+ Negative /uL Urine RBC None seen 0 - 4 /hpf Urine Microscopic WBC 10 H 0-5 /HPF Urine Squamous Epithelial Cells Many <5 /hpf Urine Bacteria None seen None Seen /hpf Urine Glucose Normal Normal mg/dL Assessment [id number] C/O RUQ PAIN NOW RESOLVED AFEBRILE VSS ABD SOFT NON TENDER R/O GALLSTONE INDUCED PANCREATITIS KEEP NPO MRCP R/O CBD STON CONSIDER ELECTIVE/ EMERGENT GB SURGERY BASED ON ONGOING EVAL Plan discussed with: Other HEATHER OLVERA MD Jun 04, 2025 17:57
[2025-06-05] VITALS (9 sets, daily range): BP systolic 113–160; BP diastolic 56–85; PULSE 64–92; RESP 18–20; TEMP 97.8–98.5; O2SAT 96–99
--- NOTE | 2025-06-05 00:09 | DVHINCON2 ---
DATE OF CONSULTATION: 06/04/2025 HISTORY OF PRESENT ILLNESS: This patient is 89 years old, coming in with right upper quadrant pain, now resolving, some nausea, vomiting. No hematemesis or melena. No bleeding per rectum. PAST MEDICAL HISTORY: Hypertension, history of pancreatitis, and UTI. PAST SURGICAL HISTORY: Negative. PHYSICAL EXAMINATION: VITAL SIGNS: Febrile. Stable signs. HEENT: With no evidence of pallor, cyanosis, or jaundice. NECK: Supple and nontender with no thyromegaly or lymphadenopathy. CHEST AND LUNGS: Clear. HEART: Within normal limits. ABDOMEN: Soft. Tender in the right upper quadrant, but no rebound. EXTREMITIES: Unremarkable. NEUROLOGIC: Intact. CLINICAL IMPRESSION: Rule out acute cholecystitis, rule out CBD stone causing pancreatitis. PLAN: Will be to keep her n.p.o. Allow the pancreatitis to resolve and also get an MRCP to rule out a CBD stone and then consider elective or emergent gallbladder surgery based upon ongoing evaluation. MD RUBEN Mills/BILL TID: [id number] RECEIPT: [id number] cc: Yahir Hernandez MD
[2025-06-05 07:38] LABS: Hematocrit 33.0 % (36.0-46.0); Hemoglobin 11.0 g/dL (12.2-16.2); Mean Corpuscular Hemoglobin 30.7 pg (28.0-32.0); Mean Corpuscular Volume 92.0 fL (80.0-100.0); Nucleated Red Blood Cells % 0.0 %
[2025-06-05 07:56] LABS: Anion Gap 16 (5-15); BUN/Creatinine Ratio 16.5 (10.0-20.0); Blood Urea Nitrogen 18 mg/dL (9-23); Calcium 9.1 mg/dL (8.7-10.4); Glucose 79 mg/dL (74-106); Magnesium 2.2 mg/dL (1.6-2.6); Potassium 3.8 mmol/L (3.5-5.1); Sodium 142 mmol/L (136-145); Total Protein 7.2 g/dL (5.7-8.2)
[2025-06-05 07:57] LABS: Albumin 4.2 g/dL (3.2-4.8)
[2025-06-05 07:58] LABS: Bilirubin, Total 0.6 mg/dL (0.2-1.0)
[2025-06-05 08:00] LABS: Alanine Aminotransferase 65 U/L (7-40); Alkaline Phosphatase 204 U/L (46-116); Carbon Dioxide 16 mmol/L (20-31); Chloride 110 mmol/L (98-107)
--- NOTE | 2025-06-05 10:53 | DVH ---
MRI Abdomen, MRCP without IV Contrast Exam Date: 06/05/2025 08:47 AM Comparison: CT dated 06/02/2025 History: Common bile duct stone Technique: Multisequence multiplanar MRI images were obtained of the abomen. MRCP including 3D SPACE, Radial 2D slabs and SPACE 3D MIP images Findings: Liver: The liver is normal in size without focal lesions. Normal liver contour. Spleen: Unremarkable. Pancreas: Few punctate cystic lesions in the pancreas measuring up to 0.2 cm. No main pancreatic duct dilation. Gallbladder and ducts: Cholelithiasis noted without secondary findings of cholecystitis or biliary ob struction. The cystic duct, right and left hepatic ducts, common hepatic duct, and common bile ducts are unremarkable. The pancreatic duct is within normal limits. Adrenal glands: Unremarkable. Kidneys: Normal enhancement without suspicious lesions or hydronephrosis. Bilateral renal cysts. Visualized bowel: Grossly unremarkable. Vasculature: Unremarkable. Lymphadenopathy: No evidence for lymphadenopathy. Ascites: Absent. Musculoskeletal: Bone marrow signal is normal. IMPRESSION: Moderately distended gallbladder with cholelithiasis and without secondary signs of cholecystitis. No choledocholithiasis. Few punctate cystic lesions are present in the pancreas measuring up to 0.2 cm. Differential consider ations could include benign pancreatic cyst or IPMN. According to 2017 ACR incidental findings committee, pancreatic cystic lesions that are less than 1.5 cm in size found incidentally on patients greater than 65 years of age should be imaged with contras t-enhanced MRI for pancreas protocol or CT every two years for 5 years until stability of 10 years is confirmed. If after this time the cystic lesion demonstrates stability, no further follow-up is vlad mmended.
[2025-06-05] MEDS: SODIUM CHLORIDE 0.9% 1,000 ML IV SCH (12:19)
[2025-06-05] MEDS: LOSARTAN POTASSIUM 50 MG TAB PO ONE (12:29)
[2025-06-05 12:30] LABS: Amylase 174 U/L (30-118); Lipase 210 U/L (12-53)
--- NOTE | 2025-06-05 15:08 | DVHPN2 ---
Subjective Patient's lipase is trending down currently denies any abdominal pain nausea and vomiting and currently on clear liquid diet. Changes from previous H/P or p: No Changes Objective Vitals Vital Signs Date Time Temp Pulse Resp B/P (MAP) Pulse Ox O2 Delivery O2 Flow Rate FiO2 06/05/25 13:13 98.1 64 18 160/67 (98) 98 98.1 06/05/25 08:00 Room Air* 0 21 Intake/Output Intake and Output 06/05/25 07:00 Intake Total 670 ml Balance 670 ml Intake Oral 420 ml IV Total 250 ml # Voids 4 # Bowel Movements 2 Exam HEENT pupils are reactive Neck is supple CV is S1-S2 regular rate and rhythm Respiratory diminished breath sounds bases GI positive bowel sound , soft nondistended nontender no guarding no rigidity Extremity no edema [employer] no motor deficit Medications Current Medications Medications Dose Ordered Sig/Jorge Route Start Time Stop Time Status Last Admin Dose Admin Ceftriaxone Sodium 50 ml @ 100 mls/hr DAILY@09 IV 06/03/25 09:00 06/05/25 09:39 100 MLS/HR Sodium Chloride 10 ml Q8HR IV 06/02/25 22:00 06/05/25 06:20 10 ML Docusate Sodium 100 mg BIDPRN PRN PO 06/02/25 19:30 Acetaminophen 650 mg Q6HP PRN PO 06/02/25 19:30 Acetaminophen/ Hydrocodone Bitart 1 tab Q4HP PRN PO 06/02/25 19:30 Ondansetron HCl 4 mg Q4HP PRN IV 06/02/25 19:30 Enoxaparin Sodium 40 mg DAILY SC 06/03/25 10:00 06/05/25 09:39 40 MG Pantoprazole Sodium 40 mg DAILY IV 06/03/25 10:00 06/05/25 09:39 40 MG Metronidazole 100 ml @ 100 mls/hr Q8H IV 06/03/25 09:00 06/05/25 09:39 100 MLS/HR Hydralazine HCl 10 mg Q4HPRN PRN IV 06/04/25 09:00 06/04/25 17:01 10 MG Sodium Chloride 1,000 ml @ 125 mls/hr Q8H IV 06/05/25 11:45 06/05/25 12:19 125 MLS/HR Nifedipine 30 mg DAILY PO 06/06/25 10:00 Losartan Potassium 50 mg DAILY PO 06/06/25 10:00 Laboratory Results Laboratory Tests 06/05/25 06:29 Chemistry Test 06/05/25 06:29 Albumin 4.2 g/dL (3.2-4.8) Calcium Level 9.1 mg/dL (8.7-10.4) Magnesium Level 2.2 mg/dL (1.6-2.6) Total Protein 7.2 g/dL (5.7-8.2) Lipid panel Test 06/05/25 06:29 Lipase 210 U/L (12-53) H LFT Test 06/05/25 06:29 Alanine Aminotransferase (ALT) 65 U/L (7-40) H Alkaline Phosphatase 204 U/L (46-116) H Aspartate Amino Transferase (AST) 52 U/L (13-40) H Total Bilirubin 0.6 mg/dL (0.2-1.0) Urinalysis Test 06/02/25 11:21 Urine Color Yellow (Yellow) Urine Clarity Cloudy (Clear) Urine pH 5.5 (5.0-9.0) Urine Specific [place] 1.022 (1.001-1.035) Urine Protein 1+ (Negative) H Urine Ketones 1+ (Negative) H Urine Blood 2+ /uL (Negative) H Urine Nitrite Negative (Negative) Urine Bilirubin 1+ (Negative) H Urine Urobilinogen Normal mg/dL (Negative) Urine Leukocyte Esterase 3+ /uL (Negative) Urine RBC None seen /hpf (0 - 4) Urine Microscopic WBC 10 /HPF (0-5) H Urine Squamous Epithelial Cells Many /hpf (<5) Urine Bacteria None seen /hpf (None Seen) Urine Glucose Normal mg/dL (Normal) Microbiology Microbiology Date/Time Source Procedure Growth Status 06/04/25 20:40 Urine - Midstream Clean Catch Urine Culture - Preliminary Resulted Assessment/Plan Assessment/Plan 89-year-old female with a no significant past medical history besides previous history of pancreatitis presented to the hospital with the abdominal pain nausea and vomiting found to have 1. Acute pancreatitis with a previous history of chronic pancreatitis, resolved 2. Elevated amylase lipase secondary to 1. 3. Transaminitis , trending down 4. Gallbladder sludge ruled out acalculous cholecystitis clinically 5. Leukocytosis 6. Urinary tract infection 7. Lactic acidosis 8. Sepsis secondary to UTI 9. Metabolic acidosis secondary to lactic acidosis and dehydration -IV fluids, IV antibiotics, follow up urine culture, s repeat amylase lipase -advanced diet as tolerated. -physical therapy evaluation and treatment -discharge plan. Plan discussed with: Patient, Daughter My Orders Orders - IRMA CASTRO MD Procedure Category Date Status Time Sodium Chloride 0.9% PHA 06/05/25 In Process 11:45 Comprehensive LAB 06/06/25 Verified Metabolic Panel 04:00 Amylase LAB 06/06/25 Verified 04:00 Lipase LAB 06/06/25 Verified 04:00 Nifedipine Er PHA 06/06/25 In Process (Procardia Xl 10:00 Losartan Tablet PHA 06/06/25 In Process (Cozaar Tablet) 10:00 Full Liq Diet DIET 06/05/25 Transmitted Lunch Date of Service: Jun 05, 2025 Billing Provider: IRMA CASTRO MD Common Visit Codes: [id number] INP/OBS CARE(MOD) IRMA CASTRO MD Jun 05, 2025 15:08
--- NOTE | 2025-06-05 16:54 | DVHPN2 ---
Progress Note - Dictate Date Seen: Jun 05, 2025 Medical Necessity Reason Pt with a Central, PICC or Fol: No Subjective New complaints, tolerating clear liquid diet Nausea vomiting and abdominal pain resolved Lipase is trending down vital signs Vital Sign Date Time Temp Pulse Resp B/P (MAP) Pulse Ox O2 Delivery O2 Flow Rate FiO2 06/05/25 13:13 98.1 64 18 160/67 (98) 98 98.1 06/05/25 08:00 Room Air* 0 21 Total Intake and Output 06/04/25 06/04/25 06/05/25 15:00 23:00 07:00 Intake Total 150 ml 520 ml Balance 150 ml 520 ml medications Current Medications Medications Dose Ordered Sig/Jorge Route Start Time Stop Time Status Last Admin Dose Admin Ceftriaxone Sodium 50 ml @ 100 mls/hr DAILY@09 IV 06/03/25 09:00 06/05/25 09:39 100 MLS/HR Sodium Chloride 10 ml Q8HR IV 06/02/25 22:00 06/05/25 15:11 10 ML Docusate Sodium 100 mg BIDPRN PRN PO 06/02/25 19:30 Acetaminophen 650 mg Q6HP PRN PO 06/02/25 19:30 Acetaminophen/ Hydrocodone Bitart 1 tab Q4HP PRN PO 06/02/25 19:30 Ondansetron HCl 4 mg Q4HP PRN IV 06/02/25 19:30 Enoxaparin Sodium 40 mg DAILY SC 06/03/25 10:00 06/05/25 09:39 40 MG Pantoprazole Sodium 40 mg DAILY IV 06/03/25 10:00 06/05/25 09:39 40 MG Metronidazole 100 ml @ 100 mls/hr Q8H IV 06/03/25 09:00 06/05/25 09:39 100 MLS/HR Hydralazine HCl 10 mg Q4HPRN PRN IV 06/04/25 09:00 06/04/25 17:01 10 MG Sodium Chloride 1,000 ml @ 125 mls/hr Q8H IV 06/05/25 11:45 06/05/25 12:19 125 MLS/HR Nifedipine 30 mg DAILY PO 06/06/25 10:00 Losartan Potassium 50 mg DAILY PO 06/06/25 10:00 objective HEENT: With no evidence of pallor, cyanosis, or jaundice. NECK: Supple and nontender with no thyromegaly or lymphadenopathy. CHEST AND LUNGS: Clear. HEART: Within normal limits. ABDOMEN: Soft. Tender in the right upper quadrant, but no rebound. EXTREMITIES: Unremarkable. NEUROLOGIC: Intact. laboratory and microbiology Laboratory Tests 06/05/25 06:29 Test 06/05/25 06:29 Range/Units Serum Glucose 79 74-106 mg/dL MRI MRCP IMPRESSION: Moderately distended gallbladder with cholelithiasis and without secondary signs of cholecystitis. No choledocholithiasis. Few punctate cystic lesions are present in the pancreas measuring up to 0.2 cm. Differential considerations could include benign pancreatic cyst or IPMN. Problems(with codes): (1) Gallstones (2) Elevated liver enzymes (3) Leukocytosis (4) UTI (urinary tract infection) Prognosis Plan Diet advance to soft mechanical Surgical follow up to decide about timing for elective laparoscopic cholecystectomy Monitor labs Dietary Evaluation Review Comments: Low fat low sugar diet, recommend CCHO-60 Cardiac diet Monitor PO intake to meet 75% of her needs monitor nutrition related lab values Expected Outcomes/Goals: gradual wt gain Plan discussed with: Other (Nurse) THOMAS OLVERA MD Jun 05, 2025 16:54
--- NOTE | 2025-06-05 22:13 | DVHPN2 ---
Progress Note Date Seen: Jun 05, 2025 Medical Necessity Reason Pt with a Central, PICC or Fol: No Objective vital signs Vital Sign Date Time Temp Pulse Resp B/P (MAP) Pulse Ox O2 Delivery O2 Flow Rate FiO2 06/05/25 21:00 97.8 90 18 136/73 (94) 97 97.8 06/05/25 08:00 Room Air* 0 21 Total Intake and Output 06/04/25 06/04/25 06/05/25 15:00 23:00 07:00 Intake Total 150 ml 520 ml Balance 150 ml 520 ml medications Current Medications Medications Dose Ordered Sig/Jorge Route Start Time Stop Time Status Last Admin Dose Admin Ceftriaxone Sodium 50 ml @ 100 mls/hr DAILY@09 IV 06/03/25 09:00 06/05/25 09:39 100 MLS/HR Sodium Chloride 10 ml Q8HR IV 06/02/25 22:00 06/05/25 21:55 10 ML Docusate Sodium 100 mg BIDPRN PRN PO 06/02/25 19:30 Acetaminophen 650 mg Q6HP PRN PO 06/02/25 19:30 Acetaminophen/ Hydrocodone Bitart 1 tab Q4HP PRN PO 06/02/25 19:30 Ondansetron HCl 4 mg Q4HP PRN IV 06/02/25 19:30 Enoxaparin Sodium 40 mg DAILY SC 06/03/25 10:00 06/05/25 09:39 40 MG Pantoprazole Sodium 40 mg DAILY IV 06/03/25 10:00 06/05/25 09:39 40 MG Metronidazole 100 ml @ 100 mls/hr Q8H IV 06/03/25 09:00 06/05/25 16:59 100 MLS/HR Hydralazine HCl 10 mg Q4HPRN PRN IV 06/04/25 09:00 06/05/25 16:59 10 MG Sodium Chloride 1,000 ml @ 125 mls/hr Q8H IV 06/05/25 11:45 06/05/25 21:55 125 MLS/HR Nifedipine 30 mg DAILY PO 06/06/25 10:00 Losartan Potassium 50 mg DAILY PO 06/06/25 10:00 laboratory and microbiology Laboratory Tests 06/05/25 06:29 Test 06/05/25 06:29 Range/Units Serum Glucose 79 74-106 mg/dL Microbiology Date/Time Source Procedure Growth Status 06/04/25 20:40 Urine - Midstream Clean Catch Urine Culture - Preliminary Resulted Problem List/Assessment/Plan Problem List/Assessment/Plan AFEBRILE VSS ABD SOFT NON TENDER PAIN RESOLVED LIPASE TRENDING DOWN CONSIDER OUTPT GB SURGERY INDICATED PT AND FAMILY NOT WANTING SURGERY AT THIS TIME NURSE AT BEDSIDE Plan discussed with: Patient My Orders My Orders Orders - HEATHER OLVERA MD Procedure Category Date Status Time Mrcp Mri MRI 06/05/25 Resulted 07:25 Dietary Evaluation Review Comments: Low fat low sugar diet, recommend CCHO-60 Cardiac diet Monitor PO intake to meet 75% of her needs monitor nutrition related lab values Expected Outcomes/Goals: gradual wt gain HEATHER OLVERA MD Jun 05, 2025 22:13
[2025-06-06] VITALS (8 sets, daily range): BP systolic 120–144; BP diastolic 57–94; PULSE 77–100; RESP 18; TEMP 97.6–98.7; O2SAT 97–99
[2025-06-06 07:04] LABS: Hematocrit 33.4 % (36.0-46.0); Hemoglobin 11.1 g/dL (12.2-16.2); Mean Corpuscular Hemoglobin 31.5 pg (28.0-32.0); Mean Corpuscular Volume 95.0 fL (80.0-100.0); Nucleated Red Blood Cells % 1.3 %
[2025-06-06 07:21] LABS: Albumin 3.9 g/dL (3.2-4.8); Anion Gap 18 (5-15); BUN/Creatinine Ratio 15.8 (10.0-20.0); Blood Urea Nitrogen 15 mg/dL (9-23); Glucose 95 mg/dL (74-106); Magnesium 2.0 mg/dL (1.6-2.6); Potassium 3.8 mmol/L (3.5-5.1); Sodium 140 mmol/L (136-145); Total Protein 6.8 g/dL (5.7-8.2)
[2025-06-06 07:22] LABS: Bilirubin, Total 0.4 mg/dL (0.2-1.0)
[2025-06-06 07:24] LABS: Alanine Aminotransferase 51 U/L (7-40); Alkaline Phosphatase 182 U/L (46-116); Amylase 173 U/L (30-118); Calcium 8.5 mg/dL (8.7-10.4); Carbon Dioxide 11 mmol/L (20-31); Chloride 111 mmol/L (98-107); Lipase 185 U/L (12-53)
[2025-06-06] MEDS: LOSARTAN POTASSIUM 50 MG TAB PO SCH (09:18)
[2025-06-06 11:11] LABS: Base Excess -14.0 mmol/L (-2.0-3.0)
[2025-06-06] MEDS ORDERED: POTASSIUM CHL 20MEQ/100ML 100 ML IV SCH (12:45)
[2025-06-06] MEDS: SODIUM BICARB 50mEq/50ml Vial 150 ML in D5W 5% 1,000 ML IV SCH (13:58)
--- NOTE | 2025-06-06 14:18 | DVHPN2 ---
Subjective Patient's lipase is trending down currently denies any abdominal pain nausea and vomiting and currently on clear liquid diet. But as per patient's family member she is not eating enough. Currently on normal saline at 1:25 a.m. mL/hour. ABG noted. Bicarb drip has been started. 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 Medications Current Medications Medications Dose Ordered Sig/Jorge Route Start Time Stop Time Status Last Admin Dose Admin Ceftriaxone Sodium 50 ml @ 100 mls/hr DAILY@09 IV 06/03/25 09:00 06/06/25 13:29 100 MLS/HR Sodium Chloride 10 ml Q8HR IV 06/02/25 22:00 06/06/25 13:59 10 ML Docusate Sodium 100 mg BIDPRN PRN PO 06/02/25 19:30 Acetaminophen 650 mg Q6HP PRN PO 06/02/25 19:30 Acetaminophen/ Hydrocodone Bitart 1 tab Q4HP PRN PO 06/02/25 19:30 Ondansetron HCl 4 mg Q4HP PRN IV 06/02/25 19:30 Enoxaparin Sodium 40 mg DAILY SC 06/03/25 10:00 06/06/25 09:02 40 MG Pantoprazole Sodium 40 mg DAILY IV 06/03/25 10:00 06/06/25 09:01 40 MG Metronidazole 100 ml @ 100 mls/hr Q8H IV 06/03/25 09:00 06/06/25 09:01 100 MLS/HR Hydralazine HCl 10 mg Q4HPRN PRN IV 06/04/25 09:00 06/05/25 16:59 10 MG Nifedipine 30 mg DAILY PO 06/06/25 10:00 06/06/25 09:08 30 MG Losartan Potassium 50 mg DAILY PO 06/06/25 10:00 06/06/25 09:18 50 MG Sodium Bicarbonate 150 ml/Dextrose 1,150 ml @ 100 mls/hr [id number] IV 06/06/25 11:00 06/06/25 13:58 100 MLS/HR Laboratory Results Laboratory Tests 06/06/25 06:14 Chemistry Test 06/06/25 06:14 Albumin 3.9 g/dL (3.2-4.8) Calcium Level 8.5 mg/dL (8.7-10.4) L Magnesium Level 2.0 mg/dL (1.6-2.6) Total Protein 6.8 g/dL (5.7-8.2) Lipid panel Test 06/06/25 06:14 Lipase 185 U/L (12-53) H LFT Test 06/06/25 06:14 Alanine Aminotransferase (ALT) 51 U/L (7-40) H Alkaline Phosphatase 182 U/L (46-116) H Aspartate Amino Transferase (AST) 43 U/L (13-40) H Total Bilirubin 0.4 mg/dL (0.2-1.0) Urinalysis Test 06/02/25 11:21 Urine Color Yellow (Yellow) Urine Clarity Cloudy (Clear) Urine pH 5.5 (5.0-9.0) Urine Specific [place] 1.022 (1.001-1.035) Urine Protein 1+ (Negative) H Urine Ketones 1+ (Negative) H Urine Blood 2+ /uL (Negative) H Urine Nitrite Negative (Negative) Urine Bilirubin 1+ (Negative) H Urine Urobilinogen Normal mg/dL (Negative) Urine Leukocyte Esterase 3+ /uL (Negative) Urine RBC None seen /hpf (0 - 4) Urine Microscopic WBC 10 /HPF (0-5) H Urine Squamous Epithelial Cells Many /hpf (<5) Urine Bacteria None seen /hpf (None Seen) Urine Glucose Normal mg/dL (Normal) Blood Gas Results Test 06/06/25 11:00 Arterial Blood pH 7.312 (7.350-7.450) FiO2 % 21.0 Microbiology Microbiology Date/Time Source Procedure Growth Status 06/04/25 20:40 Urine - Midstream Clean Catch Urine Culture - Preliminary Resulted Assessment/Plan Assessment/Plan 89-year-old female with a no significant past medical history besides previous history of pancreatitis presented to the hospital with the abdominal pain nausea and vomiting found to have 1. Acute pancreatitis with a previous history of chronic pancreatitis, resolved 2. Elevated amylase lipase secondary to 1. 3. Transaminitis , trending down 4. Gallbladder sludge ruled out acalculous cholecystitis clinically 5. Leukocytosis 6. Urinary tract infection 7. Lactic acidosis 8. Sepsis secondary to UTI 9. Metabolic acidosis secondary to lactic acidosis and dehydration DC IV fluids, start bicarb drip, nephrology consultation V antibiotics -advanced diet as tolerated. -physical therapy evaluation and treatment Plan discussed with: Patient, Daughter My Orders Orders - IRMA CASTRO MD Procedure Category Date Status Time Pt Request For Service PT 06/05/25 Logged 15:08 Soft Diet DIET 06/05/25 Transmitted Dinner Abg W/ Co-Ox RT 06/06/25 Logged 10:43 *[facility] CONS 06/06/25 Transmitted -[place] 10:44 D5w 5% (Dextrose 5%) PHA 06/06/25 In Process W/Sodium Bicarb 50m 11:00 Date of Service: Jun 06, 2025 Billing Provider: IRMA CASTRO MD Common Visit Codes: [id number] INP/OBS CARE(MOD) IRMA CASTRO MD Jun 06, 2025 14:18
--- NOTE | 2025-06-06 14:46 | DVHPN2 ---
Progress Note Date Seen: Jun 06, 2025 Medical Necessity Reason Pt with a Central, PICC or Fol: No Objective vital signs Vital Sign Date Time Temp Pulse Resp B/P (MAP) Pulse Ox O2 Delivery O2 Flow Rate FiO2 06/06/25 09:18 140/66 06/06/25 08:30 91 Room Air* 0 21 06/06/25 07:56 98.7 18 99 98.7 Total Intake and Output 06/05/25 06/05/25 06/06/25 15:00 23:00 07:00 Intake Total 740 ml 100 ml Balance 740 ml 100 ml medications Current Medications Medications Dose Ordered Sig/Jorge Route Start Time Stop Time Status Last Admin Dose Admin Ceftriaxone Sodium 50 ml @ 100 mls/hr DAILY@09 IV 06/03/25 09:00 06/06/25 13:29 100 MLS/HR Sodium Chloride 10 ml Q8HR IV 06/02/25 22:00 06/06/25 13:59 10 ML Docusate Sodium 100 mg BIDPRN PRN PO 06/02/25 19:30 Acetaminophen 650 mg Q6HP PRN PO 06/02/25 19:30 Acetaminophen/ Hydrocodone Bitart 1 tab Q4HP PRN PO 06/02/25 19:30 Ondansetron HCl 4 mg Q4HP PRN IV 06/02/25 19:30 Enoxaparin Sodium 40 mg DAILY SC 06/03/25 10:00 06/06/25 09:02 40 MG Pantoprazole Sodium 40 mg DAILY IV 06/03/25 10:00 06/06/25 09:01 40 MG Metronidazole 100 ml @ 100 mls/hr Q8H IV 06/03/25 09:00 06/06/25 09:01 100 MLS/HR Hydralazine HCl 10 mg Q4HPRN PRN IV 06/04/25 09:00 06/05/25 16:59 10 MG Nifedipine 30 mg DAILY PO 06/06/25 10:00 06/06/25 09:08 30 MG Losartan Potassium 50 mg DAILY PO 06/06/25 10:00 06/06/25 09:18 50 MG Sodium Bicarbonate 150 ml/Dextrose 1,150 ml @ 100 mls/hr [id number] IV 06/06/25 11:00 06/06/25 13:58 100 MLS/HR laboratory and microbiology Laboratory Tests 06/06/25 06:14 Test 06/06/25 06:14 Range/Units Serum Glucose 95 74-106 mg/dL Microbiology Date/Time Source Procedure Growth Status 06/04/25 20:40 Urine - Midstream Clean Catch Urine Culture - Preliminary Resulted Problem List/Assessment/Plan Problem List/Assessment/Plan AFEBRILE VSS ABD SOFT NON TENDER PAIN RESOLVED LIPASE TRENDING DOWN CONSIDER OUTPT GB SURGERY INDICATED CONTINUE CONSERVATIVE MANAGEMENT PT AND FAMILY NOT WANTING SURGERY AT THIS TIME NURSE AT BEDSIDE Plan discussed with: Other Dietary Evaluation Review Comments: Low fat low sugar diet, recommend CCHO-60 Cardiac diet Monitor PO intake to meet 75% of her needs monitor nutrition related lab values Expected Outcomes/Goals: gradual wt gain HEATHER OLVERA MD Jun 06, 2025 14:45
--- NOTE | 2025-06-06 20:56 | DVHPN2 ---
Progress Note - Dictate Date Seen: Jun 06, 2025 Medical Necessity Reason Pt with a Central, PICC or Fol: No Subjective New complaints, Nausea vomiting and abdominal pain resolved Lipase is trending down; leukocytosis improved Liver Enzymes trending Patient was started on a bicarb drip vital signs Vital Sign Date Time Temp Pulse Resp B/P (MAP) Pulse Ox O2 Delivery O2 Flow Rate FiO2 06/06/25 17:00 97.9 80 18 144/78 (100) 97 97.9 06/06/25 08:30 Room Air* 0 21 Total Intake and Output 06/05/25 06/05/25 06/06/25 15:00 23:00 07:00 Intake Total 740 ml 100 ml Balance 740 ml 100 ml medications Current Medications Medications Dose Ordered Sig/Jorge Route Start Time Stop Time Status Last Admin Dose Admin Ceftriaxone Sodium 50 ml @ 100 mls/hr DAILY@09 IV 06/03/25 09:00 06/06/25 13:29 100 MLS/HR Sodium Chloride 10 ml Q8HR IV 06/02/25 22:00 06/06/25 13:59 10 ML Docusate Sodium 100 mg BIDPRN PRN PO 06/02/25 19:30 Acetaminophen 650 mg Q6HP PRN PO 06/02/25 19:30 Acetaminophen/ Hydrocodone Bitart 1 tab Q4HP PRN PO 06/02/25 19:30 Ondansetron HCl 4 mg Q4HP PRN IV 06/02/25 19:30 Enoxaparin Sodium 40 mg DAILY SC 06/03/25 10:00 06/06/25 09:02 40 MG Pantoprazole Sodium 40 mg DAILY IV 06/03/25 10:00 06/06/25 09:01 40 MG Metronidazole 100 ml @ 100 mls/hr Q8H IV 06/03/25 09:00 06/06/25 09:01 100 MLS/HR Hydralazine HCl 10 mg Q4HPRN PRN IV 06/04/25 09:00 06/05/25 16:59 10 MG Nifedipine 30 mg DAILY PO 06/06/25 10:00 06/06/25 09:08 30 MG Losartan Potassium 50 mg DAILY PO 06/06/25 10:00 06/06/25 09:18 50 MG Sodium Bicarbonate 150 ml/Dextrose 1,150 ml @ 100 mls/hr [id number] IV 06/06/25 11:00 06/06/25 13:58 100 MLS/HR objective HEENT: With no evidence of pallor, cyanosis, or jaundice. NECK: Supple and nontender with no thyromegaly or lymphadenopathy. CHEST AND LUNGS: Clear. HEART: Within normal limits. ABDOMEN: Soft. Tender in the right upper quadrant, but no rebound. EXTREMITIES: Unremarkable. NEUROLOGIC: Intact. 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 Plan for an outpatient Dietary Evaluation Review Comments: Low fat low sugar diet, recommend CCHO-60 Cardiac diet Monitor PO intake to meet 75% of her needs monitor nutrition related lab values Expected Outcomes/Goals: gradual wt gain Plan discussed with: Patient THOMAS OLVERA MD Jun 06, 2025 20:56
--- NOTE | 2025-06-06 21:03 | DVHINCON2 ---
Date of service: Jun 06, 2025 Reason for Consultation Metabolic acidosis History of Present Illness 89 years old female with past medical history of hypertension presented with chief complaints of abdominal pain, nausea, vomiting and poor p.o. intake Nephrology consulted for Acute kidney injury and metabolic acidosis Past Medical History As per HPI Allergies: Coded Allergies: NO KNOWN ALLERGIES (Unverified , 06/02/25) Home Meds Reported Medications Nifedipine (Nifedipine Er) 30 Mg Tab, 1 TAB PO DAILY, #90 TAB 1 Refill 06/04/25 Losartan Potassium (Losartan Potassium) 50 Mg Tab, 50 MG PO DAILY for 30 Days, MG 06/04/25 Isosorbide Dinitrate (Isosorbide Dinitrate) 5 Mg Tab, 5 MG PO HS for 30 Days, MG 06/03/25 Glimepiride (Glimepiride) 2 Mg Tab, 2 MG PO DAILY for 30 Days, MG 06/03/25 Discontinued Reported Medications Cephalexin Monohydrate (Cephalexin) 500 Mg Cap, 1 CAP PO DAILY for 7 Days, #40 CAP 06/03/25 Current Medications Current Medications Medications (Trade) Dose Ordered Sig/Jorge Route PRN Reason Start Time Stop Time Status Last Admin Potassium Chloride 100 ml @ 50 mls/hr Q2H IV 06/07/25 11:45 06/07/25 15:44 06/07/25 13:07 Family History: Hypertension G8 MOTHER Review of Systems As per HPI H&P Exam Vital Signs/I&O Vital Sign Date Time Temp Pulse Resp B/P (MAP) Pulse Ox O2 Delivery O2 Flow Rate FiO2 06/07/25 12:54 36.2 06/07/25 10:23 141/68 06/07/25 09:00 72 18 95 06/06/25 20:00 Room Air* 0 21 Intake and Output 06/06/25 06/07/25 18:59 06:59 Intake Total 620 ml 100 ml Balance 620 ml 100 ml Intake Oral 620 ml IV Total 100 ml # Voids 3 Physical Exam General-not in any distress HEENT-normocephalic, no icterus, no pallor, neck supple Respiratory-fair air entry bilateral, no rhonchi, no wheeze [id number] heard, no murmurs appreciated Abdominal-soft, nontender, nondistended Musculoskeletal-no pedal edema, no calf tenderness Genitourinary-deferred Neuro-awake alert oriented x3, Psychiatric-not agitated, cooperative, Labs/Diagnostic Data Labs/Diagnostic Data Laboratory Tests Test 06/07/25 08:58 06/07/25 06:39 06/06/25 11:00 06/06/25 06:14 Range/Units Sodium Level 141 140 136-145 mmol/L Potassium Level 2.9 L 3.8 3.5-5.1 mmol/L Chloride Level 106 111 H 98-107 mmol/L Carbon Dioxide Level 23 11 L 20-31 mmol/L Anion Gap 12 18 H 5-15 Blood Urea Nitrogen 10 15 9-23 mg/dL Creatinine 0.85 0.95 0.550-1.02 mg/dL Glomerular Filtration Rate Calc 66 58 >90 mL/min BUN/Creatinine Ratio 11.8 15.8 10.0-20.0 Serum Glucose 270 H 95 74-106 mg/dL Calcium Level 8.5 L 8.5 L 8.7-10.4 mg/dL Magnesium Level 1.7 2.0 1.6-2.6 mg/dL Total Bilirubin 0.5 0.4 0.2-1.0 mg/dL Aspartate Amino Transferase (AST) 33 43 H 13-40 U/L Alanine Aminotransferase (ALT) 42 H 51 H 7-40 U/L Alkaline Phosphatase 162 H 182 H 46-116 U/L Total Protein 6.6 6.8 5.7-8.2 g/dL Albumin 3.9 3.9 3.2-4.8 g/dL White Blood Count 7.4 7.2 4.4-10.8 10^3/uL Red Blood Count 3.58 L 3.52 L 4.0-5.20 10^6/uL Hemoglobin 11.0 L 11.1 L 12.2-16.2 g/dL Hematocrit 32.3 L 33.4 L 36.0-46.0 % Mean Corpuscular Volume 90.2 # 95.0 80.0-100.0 fL Mean Corpuscular Hemoglobin 30.6 31.5 28.0-32.0 pg Mean Corpuscular Hemoglobin Concent 33.9 33.2 32.0-36.0 g/dL Red Cell Distribution Width 13.5 13.8 11.8-14.3 % Platelet Count 240 251 140-450 10^3/uL Mean Platelet Volume 10.4 10.7 6.9-10.8 fL Neutrophils (%) (Auto) 42.6 53.6 37.0-80.0 % Lymphocytes (%) (Auto) 39.8 33.1 10.0-50.0 % Monocytes (%) (Auto) 12.1 H 9.4 0.0-12.0 % Eosinophils (%) (Auto) 4.6 3.1 0.0-7.0 % Basophils (%) (Auto) 0.9 0.8 0.0-2.0 % Neutrophils # (Auto) 3.2 3.8 1.6-8.6 10 ^3/uL Lymphocytes # (Auto) 3.0 2.4 0.4-5.4 10 ^3/uL Monocytes # (Auto) 0.9 0.7 0-1.3 10 ^3/uL Eosinophils # (Auto) 0.3 0.2 0-0.8 10 ^3/uL Basophils # (Auto) 0.1 0.1 0-0.2 10 ^3/uL Nucleated Red Blood Cells 0.1 1.3 % Blood Gas Specimen Type Arterial Blood Gas Sample Site Left brachial Blood Gas Patient Temperature 37.0 Arterial Blood Date Drawn [id number] Arterial Blood pH 7.312 L 7.350-7.450 Arterial Blood Partial Pressure CO2 20.8 L 32.0-45.0 mmHg Arterial Blood Partial Pressure O2 80.2 L 83.0-108.0 mmHg Arterial Blood HCO3 10.3 L 21.0-28.0 mmol/L Arterial Blood Oxygen Saturation 94.3 94.0-98.0 % Arterial Blood Base Excess -14.0 L -2.0-3.0 mmol/L Arterial Blood Oxyhemoglobin 93.8 L 94.0-98.0 % Arterial Blood Carboxyhemoglobin 0.1 L 0.5-1.5 % Arterial Blood Methemoglobin 0.4 0.0-1.5 % Colten Test N/a Blood Gas Total Hemoglobin 11.40 L 12.0-16.0 g/dL Blood Gas Modality Room air FiO2 % 21.0 Amylase Level 173 H 30-118 U/L Lipase 185 H 12-53 U/L Beta-Hydroxybutyric Acid > 4.500 H < 0.4 mmol/L Test 06/05/25 06:29 06/04/25 07:01 06/03/25 07:11 06/02/25 14:37 Range/Units White Blood Count 7.1 8.1 # 13.4 #H 4.4-10.8 10^3/uL Red Blood Count 3.59 L 3.54 L 3.40 L 4.0-5.20 10^6/uL Hemoglobin 11.0 L 11.0 L 10.6 L 12.2-16.2 g/dL Hematocrit 33.0 L 32.2 L 30.5 L 36.0-46.0 % Mean Corpuscular Volume 92.0 91.1 89.5 80.0-100.0 fL Mean Corpuscular Hemoglobin 30.7 31.1 31.1 28.0-32.0 pg Mean Corpuscular Hemoglobin Concent 33.4 34.2 34.8 32.0-36.0 g/dL Red Cell Distribution Width 13.2 13.3 13.0 11.8-14.3 % Platelet Count 213 204 178 140-450 10^3/uL Mean Platelet Volume 10.8 10.8 10.6 6.9-10.8 fL Neutrophils (%) (Auto) 59.1 59.5 77.9 37.0-80.0 % Lymphocytes (%) (Auto) 26.4 29.0 13.9 10.0-50.0 % Monocytes (%) (Auto) 10.3 8.1 6.9 0.0-12.0 % Eosinophils (%) (Auto) 3.2 2.7 1.0 0.0-7.0 % Basophils (%) (Auto) 1.0 0.7 0.3 0.0-2.0 % Neutrophils # (Auto) 4.2 4.8 10.5 H 1.6-8.6 10 ^3/uL Lymphocytes # (Auto) 1.9 2.3 1.9 0.4-5.4 10 ^3/uL Monocytes # (Auto) 0.7 0.6 0.9 0-1.3 10 ^3/uL Eosinophils # (Auto) 0.2 0.2 0.1 0-0.8 10 ^3/uL Basophils # (Auto) 0.1 0.1 0 0-0.2 10 ^3/uL Nucleated Red Blood Cells 0.0 0.0 0.0 % Sodium Level 142 138 142 136-145 mmol/L Potassium Level 3.8 3.9 4.2 3.5-5.1 mmol/L Chloride Level 110 H 107 108 H 98-107 mmol/L Carbon Dioxide Level 16 L 18 L 22 20-31 mmol/L Anion Gap 16 H 13 12 5-15 Blood Urea Nitrogen 18 17 # 30 H 9-23 mg/dL Creatinine 1.09 H 1.03 H 1.28 H 0.550-1.02 mg/dL Glomerular Filtration Rate Calc 49 53 41 >90 mL/min BUN/Creatinine Ratio 16.5 16.5 23.4 H 10.0-20.0 Serum Glucose 79 84 108 H 74-106 mg/dL Calcium Level 9.1 9.1 8.7 8.7-10.4 mg/dL Magnesium Level 2.2 2.2 2.2 1.6-2.6 mg/dL Total Bilirubin 0.6 0.7 1.3 H 0.2-1.0 mg/dL Aspartate Amino Transferase (AST) 52 H 87 H 164 H 13-40 U/L Alanine Aminotransferase (ALT) 65 H 87 H 124 H 7-40 U/L Alkaline Phosphatase 204 H 193 H 180 H 46-116 U/L Total Protein 7.2 7.4 7.2 5.7-8.2 g/dL Albumin 4.2 4.4 4.3 3.2-4.8 g/dL Amylase Level 174 H 338 H 999 H 30-118 U/L Lipase 210 H 421 H 1475 H 12-53 U/L Lactic Acid Level 1.1 2.2 *H 0.4-2.0 mmol/L Troponin I High Sensitivity 3 L </=34 ng/L Test 06/02/25 12:39 06/02/25 11:45 06/02/25 11:21 Range/Units Troponin I High Sensitivity < 3 L < 3 L </=34 ng/L White Blood Count 19.2 H 4.4-10.8 10^3/uL Red Blood Count 3.66 L 4.0-5.20 10^6/uL Hemoglobin 11.4 L 12.2-16.2 g/dL Hematocrit 33.2 L 36.0-46.0 % Mean Corpuscular Volume 90.7 80.0-100.0 fL Mean Corpuscular Hemoglobin 31.1 28.0-32.0 pg Mean Corpuscular Hemoglobin Concent 34.3 32.0-36.0 g/dL Red Cell Distribution Width 12.9 11.8-14.3 % Platelet Count 222 140-450 10^3/uL Mean Platelet Volume 10.4 6.9-10.8 fL Neutrophils (%) (Auto) 85.4 H 37.0-80.0 % Lymphocytes (%) (Auto) 6.4 L 10.0-50.0 % Monocytes (%) (Auto) 7.9 0.0-12.0 % Eosinophils (%) (Auto) 0.1 0.0-7.0 % Basophils (%) (Auto) 0.2 0.0-2.0 % Neutrophils # (Auto) 16.4 H 1.6-8.6 10 ^3/uL Lymphocytes # (Auto) 1.2 0.4-5.4 10 ^3/uL Monocytes # (Auto) 1.5 H 0-1.3 10 ^3/uL Eosinophils # (Auto) 0 0-0.8 10 ^3/uL Basophils # (Auto) 0 0-0.2 10 ^3/uL Nucleated Red Blood Cells 0.0 % Sodium Level 139 136-145 mmol/L Potassium Level 4.1 3.5-5.1 mmol/L Chloride Level 106 98-107 mmol/L Carbon Dioxide Level 22 20-31 mmol/L Anion Gap 11 5-15 Blood Urea Nitrogen 27 H 9-23 mg/dL Creatinine 1.18 H 0.550-1.02 mg/dL Glomerular Filtration Rate Calc 45 >90 mL/min BUN/Creatinine Ratio 22.9 H 10.0-20.0 Serum Glucose 181 H 74-106 mg/dL Lactic Acid Level 2.4 *H 0.4-2.0 mmol/L Calcium Level 9.2 8.7-10.4 mg/dL Total Bilirubin 1.6 H 0.2-1.0 mg/dL Aspartate Amino Transferase (AST) 142 H 13-40 U/L Alanine Aminotransferase (ALT) 79 H 7-40 U/L Alkaline Phosphatase 158 H 46-116 U/L B-Type Natriuretic Peptide 165.24 0-100 pg/mL Total Protein 7.9 5.7-8.2 g/dL Albumin 4.6 3.2-4.8 g/dL Lipase > 3500 H 12-53 U/L Urine Color Yellow Yellow Urine Clarity Cloudy Clear Urine pH 5.5 5.0-9.0 Urine Specific [place] 1.022 1.001-1.035 Urine Protein 1+ H Negative Urine Ketones 1+ H Negative Urine Blood 2+ H Negative /uL Urine Nitrite Negative Negative Urine Bilirubin 1+ H Negative Urine Urobilinogen Normal Negative mg/dL Urine Leukocyte Esterase 3+ Negative /uL Urine RBC None seen 0 - 4 /hpf Urine Microscopic WBC 10 H 0-5 /HPF Urine Squamous Epithelial Cells Many <5 /hpf Urine Bacteria None seen None Seen /hpf Urine Glucose Normal Normal mg/dL Microbiology Date/Time Source Procedure Growth Status 06/04/25 20:40 Urine - Midstream Clean Catch Urine Culture - Final Complete Assessment Acute kidney injury hemodynamic mediated Metabolic acidosis likely starvation ketosis Transaminitis Pancreatitis Recommendations Agree with bicarb drip Check beta hydroxybutyrate Continue fluids Renal function better since admission We will follow Plan discussed with: Patient SHIRLEY GOLD MD Jun 06, 2025 21:03
[2025-06-07 01:00] VITALS: BP 148/80; PULSE 86; RESP 18; TEMP 98.9; O2SAT 97
[2025-06-07 05:00] VITALS: BP 145/68; PULSE 71; RESP 18; TEMP 98.6; O2SAT 99
[2025-06-07 07:29] LABS: Hematocrit 32.3 % (36.0-46.0); Hemoglobin 11.0 g/dL (12.2-16.2); Mean Corpuscular Hemoglobin 30.6 pg (28.0-32.0); Mean Corpuscular Volume 90.2 fL (80.0-100.0); Nucleated Red Blood Cells % 0.1 %
[2025-06-07 09:00] VITALS: BP 141/68; PULSE 72; RESP 18; TEMP 97.2; O2SAT 95
[2025-06-07 10:03] LABS: Anion Gap 12 (5-15); BUN/Creatinine Ratio 11.8 (10.0-20.0); Blood Urea Nitrogen 10 mg/dL (9-23); Carbon Dioxide 23 mmol/L (20-31); Chloride 106 mmol/L (98-107); Magnesium 1.7 mg/dL (1.6-2.6); Sodium 141 mmol/L (136-145); Total Protein 6.6 g/dL (5.7-8.2)
[2025-06-07 10:04] LABS: Albumin 3.9 g/dL (3.2-4.8); Bilirubin, Total 0.5 mg/dL (0.2-1.0)
[2025-06-07 10:55] LABS: Alanine Aminotransferase 42 U/L (7-40); Alkaline Phosphatase 162 U/L (46-116); Calcium 8.5 mg/dL (8.7-10.4); Glucose 270 mg/dL (74-106); Potassium 2.9 mmol/L (3.5-5.1)
--- NOTE | 2025-06-07 12:23 | DVHDS2 ---
Discharge Summary Date of Admission Jun 02, 2025 at 19:17 Date of Discharge: Jun 07, 2025 Labs/Diagnostic Data: Laboratory Results Test 06/07/25 08:58 06/07/25 06:39 06/06/25 11:00 06/06/25 06:14 Sodium Level 141 mmol/L (136-145) Potassium Level 2.9 mmol/L (3.5-5.1) Chloride Level 106 mmol/L (98-107) Carbon Dioxide Level 23 mmol/L (20-31) Anion Gap 12 (5-15) Blood Urea Nitrogen 10 mg/dL (9-23) Creatinine 0.85 mg/dL (0.550-1.02) Glomerular Filtration Rate Calc 66 mL/min (>90) BUN/Creatinine Ratio 11.8 (10.0-20.0) Serum Glucose 270 mg/dL (74-106) Calcium Level 8.5 mg/dL (8.7-10.4) Magnesium Level 1.7 mg/dL (1.6-2.6) Total Bilirubin 0.5 mg/dL (0.2-1.0) Aspartate Amino Transferase (AST) 33 U/L (13-40) Alanine Aminotransferase (ALT) 42 U/L (7-40) Alkaline Phosphatase 162 U/L (46-116) Total Protein 6.6 g/dL (5.7-8.2) Albumin 3.9 g/dL (3.2-4.8) White Blood Count 7.4 10^3/uL (4.4-10.8) Red Blood Count 3.58 10^6/uL (4.0-5.20) Hemoglobin 11.0 g/dL (12.2-16.2) Hematocrit 32.3 % (36.0-46.0) Mean Corpuscular Volume 90.2 fL (80.0-100.0) Mean Corpuscular Hemoglobin 30.6 pg (28.0-32.0) Mean Corpuscular Hemoglobin Concent 33.9 g/dL (32.0-36.0) Red Cell Distribution Width 13.5 % (11.8-14.3) Platelet Count 240 10^3/uL (140-450) Mean Platelet Volume 10.4 fL (6.9-10.8) Neutrophils (%) (Auto) 42.6 % (37.0-80.0) Lymphocytes (%) (Auto) 39.8 % (10.0-50.0) Monocytes (%) (Auto) 12.1 % (0.0-12.0) Eosinophils (%) (Auto) 4.6 % (0.0-7.0) Basophils (%) (Auto) 0.9 % (0.0-2.0) Neutrophils # (Auto) 3.2 10 ^3/uL (1.6-8.6) Lymphocytes # (Auto) 3.0 10 ^3/uL (0.4-5.4) Monocytes # (Auto) 0.9 10 ^3/uL (0-1.3) Eosinophils # (Auto) 0.3 10 ^3/uL (0-0.8) Basophils # (Auto) 0.1 10 ^3/uL (0-0.2) Nucleated Red Blood Cells 0.1 % Blood Gas Specimen Type Arterial Blood Gas Sample Site Left brachial Blood Gas Patient Temperature 37.0 Arterial Blood Date Drawn [id number] Arterial Blood pH 7.312 (7.350-7.450) Arterial Blood Partial Pressure CO2 20.8 mmHg (32.0-45.0) Arterial Blood Partial Pressure O2 80.2 mmHg (83.0-108.0) Arterial Blood HCO3 10.3 mmol/L (21.0-28.0) Arterial Blood Oxygen Saturation 94.3 % (94.0-98.0) Arterial Blood Base Excess -14.0 mmol/L (-2.0-3.0) Arterial Blood Oxyhemoglobin 93.8 % (94.0-98.0) Arterial Blood Carboxyhemoglobin 0.1 % (0.5-1.5) Arterial Blood Methemoglobin 0.4 % (0.0-1.5) [place] Test N/a Blood Gas Total Hemoglobin 11.40 g/dL (12.0-16.0) Blood Gas Modality Room air FiO2 % 21.0 Amylase Level 173 U/L (30-118) Lipase 185 U/L (12-53) Beta-Hydroxybutyric Acid > 4.500 mmol/L (< 0.4) Test 06/04/25 07:01 06/02/25 14:37 06/02/25 11:45 06/02/25 11:21 Lactic Acid Level 1.1 mmol/L (0.4-2.0) Troponin I High Sensitivity 3 ng/L (</=34) B-Type Natriuretic Peptide 165.24 pg/mL (0-100) Urine Color Yellow (Yellow) Urine Clarity Cloudy (Clear) Urine pH 5.5 (5.0-9.0) Urine Specific [place] 1.022 (1.001-1.035) Urine Protein 1+ (Negative) Urine Ketones 1+ (Negative) Urine Blood 2+ /uL (Negative) Urine Nitrite Negative (Negative) Urine Bilirubin 1+ (Negative) Urine Urobilinogen Normal mg/dL (Negative) Urine Leukocyte Esterase 3+ /uL (Negative) Urine RBC None seen /hpf (0 - 4) Urine Microscopic WBC 10 /HPF (0-5) Urine Squamous Epithelial Cells Many /hpf (<5) Urine Bacteria None seen /hpf (None Seen) Urine Glucose Normal mg/dL (Normal) Other Laboratory Tests 06/07/25 08:58 06/07/25 06:39 Brief Hx & Hospital Course: 89-year-old female with a no significant past medical history besides previous history of pancreatitis presented to the hospital with the abdominal pain nausea and vomiting found to have acute pancreatitis with a previous history of chronic pancreatitis. Patient's amylase lipase were increased. GI was consulted as well as General surgery for acalculous cholecystitis. Patient was initially kept NPO on IV fluids then patient's pancreatitis has been resolved. Patient was found to have severe metabolic acidosis later on eventually started on bicarb drip. Patient was treated with the IV antibiotics for possible UTI. Today patient is eating and tolerating diet and metabolic acidosis has a resolved. Patient was being discharged under stable condition with a close follow up as an outpatient with the PCP GI and General surgery if indicated. Condition at Discharge: Stable Final Diagnosis/Problems List 89-year-old female with a no significant past medical history besides previous history of pancreatitis presented to the hospital with the abdominal pain nausea and vomiting found to have 1. Acute pancreatitis with a previous history of chronic pancreatitis, resolved 2. Elevated amylase lipase secondary to 1. 3. Transaminitis , trending down 4. Gallbladder sludge ruled out acalculous cholecystitis clinically 5. Leukocytosis 6. Urinary tract infection 7. Lactic acidosis 8. Sepsis secondary to UTI 9. Metabolic acidosis secondary to lactic acidosis and dehydration Discharge Disposition: Home SNF Discharge Will this Physician continue t: No Discharge Instruct/Medications Diet: Cardiac 2g Na,low cholest Diet comment: 1999 ADA diet Activity: No Restrictions, As Tolerated Follow Up/Referral: Follow up with the PCP in 1-2 weeks Follow up with General surgery as an outpatient Follow up with GI in 1-2 weeks Medications: Resume home medications. Scheduled Glimepiride (Glimepiride), 2 MG PO DAILY, (Reported) Isosorbide Dinitrate (Isosorbide Dinitrate), 5 MG PO HS, (Reported) Losartan Potassium (Losartan Potassium), 50 MG PO DAILY, (Reported) Nifedipine (Nifedipine Er), 1 TAB PO DAILY, (Reported) Discontinued Medications Cephalexin Monohydrate (Cephalexin), 1 CAP PO DAILY, (Reported) Discharge Statement: "Patient was advised to return to the ER or call 911 if any headaches, dizziness, shortness of breath, chest pain, abdominal pain, bleeding, fevers, or worsening of medical condition. Patient was counseled about treatment plan, medications, possible side effects, patientverbalized understanding. All questions were answered to the best of my ability. This discharge took greater then 30 minutes in planning, reviewing documentation, counseling the patient, and discussing with other team members." ASSESSMENT ASSESSMENT Assessment 89-year-old female with a no significant past medical history besides previous history of pancreatitis presented to the hospital with the abdominal pain nausea and vomiting found to have 1. Acute pancreatitis with a previous history of chronic pancreatitis, resolved 2. Elevated amylase lipase secondary to 1. 3. Transaminitis , trending down 4. Gallbladder sludge ruled out acalculous cholecystitis clinically 5. Leukocytosis 6. Urinary tract infection 7. Lactic acidosis 8. Sepsis secondary to UTI 9. Metabolic acidosis secondary to lactic acidosis and dehydration Date of Service: Jun 07, 2025 Billing Provider: IRMA CASTRO MD Common Visit Codes: 88482-XAU/OBS DISCH DAY >30min IRMA CASTRO MD Jun 07, 2025 12:23
[2025-06-07 12:54] VITALS: BP 141/68; TEMP 36.2
[2025-06-07 13:00] VITALS: BP 143/67; PULSE 75; RESP 19; TEMP 98; O2SAT 95
[2025-06-07] MEDS: POTASSIUM EFFERVESENT TAB 25 MEQ PO ONE (13:07)
[2025-06-07] MEDS: POTASSIUM CHL 20MEQ/100ML 100 ML IV SCH (13:07)
--- NOTE | 2025-06-07 13:52 | DVHPN2 ---
Progress Note Date Seen: Jun 07, 2025 Medical Necessity Reason Pt with a Central, PICC or Fol: No Subjective Patient reports: No new complaints Review of Systems: HEENT:Normal, CVS:Normal, RESPIRATORY:Normal, GI:Normal, :Normal, MSK:Normal, NEURO:Normal Objective vital signs Vital Sign Date Time Temp Pulse Resp B/P (MAP) Pulse Ox O2 Delivery O2 Flow Rate FiO2 06/07/25 12:54 36.2 06/07/25 10:23 141/68 06/07/25 09:00 72 18 95 06/06/25 20:00 Room Air* 0 21 Total Intake and Output 06/06/25 06/06/25 06/07/25 14:59 22:59 06:59 Intake Total 620 ml 100 ml Balance 620 ml 100 ml medications Current Medications Medications Dose Ordered Sig/Jorge Route Start Time Stop Time Status Last Admin Dose Admin Ceftriaxone Sodium 50 ml @ 100 mls/hr DAILY@09 IV 06/03/25 09:00 06/06/25 13:29 Sodium Chloride 10 ml Q8HR IV 06/02/25 22:00 06/07/25 10:24 Docusate Sodium 100 mg BIDPRN PRN PO 06/02/25 19:30 Acetaminophen 650 mg Q6HP PRN PO 06/02/25 19:30 Acetaminophen/ Hydrocodone Bitart 1 tab Q4HP PRN PO 06/02/25 19:30 Ondansetron HCl 4 mg Q4HP PRN IV 06/02/25 19:30 Enoxaparin Sodium 40 mg DAILY SC 06/03/25 10:00 06/07/25 10:25 Pantoprazole Sodium 40 mg DAILY IV 06/03/25 10:00 06/07/25 10:24 Metronidazole 100 ml @ 100 mls/hr Q8H IV 06/03/25 09:00 06/07/25 10:23 Hydralazine HCl 10 mg Q4HPRN PRN IV 06/04/25 09:00 06/05/25 16:59 Nifedipine 30 mg DAILY PO 06/06/25 10:00 06/07/25 10:23 Losartan Potassium 50 mg DAILY PO 06/06/25 10:00 06/07/25 10:23 Sodium Bicarbonate 150 ml/Dextrose 1,150 ml @ 100 mls/hr [id number] IV 06/06/25 11:00 06/07/25 10:25 Potassium Chloride 100 ml @ 50 mls/hr Q2H IV 06/07/25 11:45 06/07/25 15:44 06/07/25 13:07 laboratory and microbiology Laboratory Tests 06/07/25 08:58 06/07/25 06:39 Test 06/07/25 08:58 Range/Units Serum Glucose 270 H 74-106 mg/dL Microbiology Date/Time Source Procedure Growth Status 06/04/25 20:40 Urine - Midstream Clean Catch Urine Culture - Final Complete Problem List/Assessment/Plan Problem List/Assessment/Plan Acute kidney injury hemodynamic mediated Metabolic acidosis likely starvation ketosis Transaminitis Pancreatitis Hypokalemia Recommendations dc bicarb drip K replace high beta hydroxybutyrate Continue fluids Renal function better since admission We will follow Plan discussed with: Patient Dietary Evaluation Review Comments: Low fat low sugar diet, recommend CCHO-60 Cardiac diet Monitor PO intake to meet 75% of her needs monitor nutrition related lab values Expected Outcomes/Goals: gradual wt gain SHIRLEY GOLD MD Jun 07, 2025 13:52
--- NOTE | 2025-06-07 14:53 | DVHPN2 ---
Progress Note - Dictate Date Seen: Jun 07, 2025 Medical Necessity Reason Pt with a Central, PICC or Fol: No Subjective New complaints, Nausea vomiting and abdominal pain resolved Lipase is trending down; leukocytosis improved Liver Enzymes trending down Patient was started on a bicarb drip Metabolic acidosis improved vital signs Vital Sign Date Time Temp Pulse Resp B/P (MAP) Pulse Ox O2 Delivery O2 Flow Rate FiO2 06/07/25 12:54 36.2 06/07/25 10:23 141/68 06/07/25 09:00 72 18 95 06/06/25 20:00 Room Air* 0 21 Total Intake and Output 06/06/25 06/06/25 06/07/25 15:00 23:00 07:00 Intake Total 620 ml 100 ml Balance 620 ml 100 ml medications Current Medications Medications Dose Ordered Sig/Jorge Route Start Time Stop Time Status Last Admin Dose Admin Ceftriaxone Sodium 50 ml @ 100 mls/hr DAILY@09 IV 06/03/25 09:00 06/06/25 13:29 100 MLS/HR Sodium Chloride 10 ml Q8HR IV 06/02/25 22:00 06/07/25 10:24 10 ML Docusate Sodium 100 mg BIDPRN PRN PO 06/02/25 19:30 Acetaminophen 650 mg Q6HP PRN PO 06/02/25 19:30 Acetaminophen/ Hydrocodone Bitart 1 tab Q4HP PRN PO 06/02/25 19:30 Ondansetron HCl 4 mg Q4HP PRN IV 06/02/25 19:30 Enoxaparin Sodium 40 mg DAILY SC 06/03/25 10:00 06/07/25 10:25 40 MG Pantoprazole Sodium 40 mg DAILY IV 06/03/25 10:00 06/07/25 10:24 40 MG Metronidazole 100 ml @ 100 mls/hr Q8H IV 06/03/25 09:00 06/07/25 10:23 100 MLS/HR Hydralazine HCl 10 mg Q4HPRN PRN IV 06/04/25 09:00 06/05/25 16:59 10 MG Nifedipine 30 mg DAILY PO 06/06/25 10:00 06/07/25 10:23 30 MG Losartan Potassium 50 mg DAILY PO 06/06/25 10:00 06/07/25 10:23 50 MG Sodium Bicarbonate 150 ml/Dextrose 1,150 ml @ 100 mls/hr [id number] IV 06/06/25 11:00 06/07/25 10:25 100 MLS/HR Potassium Chloride 100 ml @ 50 mls/hr Q2H IV 06/07/25 11:45 06/07/25 15:44 06/07/25 13:07 50 MLS/HR objective HEENT: With no evidence of pallor, cyanosis, or jaundice. NECK: Supple and nontender with no thyromegaly or lymphadenopathy. CHEST AND LUNGS: Clear. HEART: Within normal limits. ABDOMEN: Soft. Tender in the right upper quadrant, but no rebound. EXTREMITIES: Unremarkable. NEUROLOGIC: Intact. laboratory and microbiology Laboratory Tests 06/07/25 08:58 06/07/25 06:39 Test 06/07/25 08:58 Range/Units Serum Glucose 270 H 74-106 mg/dL Problems(with codes): (1) Elevated liver enzymes (2) Gallstones (3) UTI (urinary tract infection) (4) Leukocytosis (5) Hisas-il-daqpsua kidney injury (6) Elevated lactic acid level (7) Pancreatitis Prognosis Plan Patient is clinically improving Continue supportive care Discharge planning is in progress Patient and family did not want any gallbladder surgery at this time Outpatient follow up with me in 4-6 weeks or as clinically indicated Dietary Evaluation Review Comments: Low fat low sugar diet, recommend CCHO-60 Cardiac diet Monitor PO intake to meet 75% of her needs monitor nutrition related lab values Expected Outcomes/Goals: gradual wt gain Plan discussed with: Patient THOMAS OLVERA MD Jun 07, 2025 14:53
[2025-06-07 17:00] VITALS: BP 149/74; PULSE 87; RESP 19; TEMP 98.5; O2SAT 94
== END 2025-06-07 20:06 | disposition home or self-care (01) | DRG 720 ==
LOC: ER 11:05 → OVERFLOW 19:17 → CENTRAL 06-03 22:58
PROVIDERS: ADMIT Hospitalist; ATTEND Hospitalist
DX: A41.9 Sepsis, unspecified organism (principal); E87.20 Acidosis, unspecified; N17.9 Acute kidney failure, unspecified; K85.90 Acute pancreatitis without necrosis or infection, unspecified; K80.10 Calculus of gallbladder with chronic cholecystitis without obstruction; Z20.822 Contact with and (suspected) exposure to COVID-19; N39.0 Urinary tract infection, site not specified; K86.1 Other chronic pancreatitis; R74.01 Elevation of levels of liver transaminase levels; D64.9 Anemia, unspecified; E86.0 Dehydration; N26.1 Atrophy of kidney (terminal); E87.6 Hypokalemia; I10 Essential (primary) hypertension; Z79.899 Other long term (current) drug therapy; Z82.49 Family history of ischemic heart disease and other diseases of the circulatory system; Z79.2 Long term (current) use of antibiotics
CPT/HCPCS: 36415; 36600; 74176; 74181; 76705; 80053; 81001; 82010; 82150; 82805; 83605; 83690; 83735; 83880; 84484; 85025; 87086; 93005; 96365; 96375; 97110; 97116; 97163; G0378; J2405; J2470; J2543; J3480; J3490

== ENCOUNTER 2025-08-18 11:45 | Inpatient (IN) | payer MEDICAID ==
[~2025-08-18] VITALS: Ht 144.8 cm; Wt 46.9 kg
[~2025-08-18 11:45] MED LIST: GLIM2TAB33 PO; ISOS5TAB PO; LOSA-534 PO; NIFE1TAB31 PO
--- NOTE | 2025-08-18 12:17 | ED.PDOC ---
History of Present Illness HPI Comments This patient is a Sami-speaking only 89 y/o F is [id number]-dy granddaughter for c/c of epigastric abdominal and substernal chest pain. Patient reports on sudden, unprovoked, and atraumatic pain, this morning. Unable to describe quality or severity of pain. She states on previous episode of similar pain in May 2025, where she was found with acute pancreatitis and was admitted to this hospital for management. Denies any nausea, vomiting, diarrhea, shortness of breath, or further acute symptoms. Vital signs were stable. Chief Complaint: Abdominal Pain Time Seen by MD: 11:50 Reviewed Notes: Nurses Notes, Medications, Allergies Allergies: Coded Allergies: NO KNOWN ALLERGIES (Unverified , 06/02/25) Home Meds Reported Medications Nifedipine (Nifedipine Er) 30 Mg Tab, 1 TAB PO DAILY, #90 TAB 1 Refill 06/04/25 Losartan Potassium (Losartan Potassium) 50 Mg Tab, 50 MG PO DAILY for 30 Days, MG 06/04/25 Isosorbide Dinitrate (Isosorbide Dinitrate) 5 Mg Tab, 5 MG PO HS for 30 Days, MG 06/03/25 Glimepiride (Glimepiride) 2 Mg Tab, 2 MG PO DAILY for 30 Days, MG 06/03/25 Information Source: Patient, Relative (GrandChild) Mode of Arrival: Ambulatory Severity: Moderate Timing: Hours Duration: Since onset Prehospital treatment: None Past Medical History PAST MEDICAL HISTORY: UTI'S Past Medical History (Other): Sepsis secondary to UTI Metabolic acidosis secondary to lactic acidosis Pancreatitis Surgical History: Denies all surgeries WELD INSPECTOR History: Denies all WELD INSPECTOR Hx Family History Family History: Reviewed,noncontributory to illness Social History Smoker: Non-Smoker Alcohol: Denies ETOH Use Drugs: Denies Drug Use Lives In: Home Constitutional: reports: weakness; denies: chills, diaphoresis, fatigue, fever, malaise, sweats, others EENTM: denies: blurred vision, double vision, ear bleeding, ear discharge, ear drainage, ear pain, ear ringing, eye pain, eye redness, hearing loss, mouth pain, mouth swelling, nasal discharge, nose bleeding, nose congestion, nose pain, photophobia, tearing, throat pain, throat swelling, voice changes, others Respiratory: denies: cough, hemoptysis, orthopnea, SOB at rest, shortness of breath, SOB with excertion, stridor, wheezing, others Cardiovascular: denies: chest pain, dizzy spells, diaphoresis, Dyspnea on exertion, edema, irregular heart beat, left arm pain, lightheadedness, palpitations, PND, syncope, others Gastrointestinal: reports: abdominal pain; denies: abdomen distended, blood streaked bowels, constipated, diarrhea, dysphagia, difficulty swallowing, hematemesis, melena, nausea, poor appetite, poor fluid intake, rectal bleeding, rectal pain, vomiting, others Genitourinary: denies: abnormal vagina bleeding, burning, dyspareunia, dysuria, flank pain, frequency, hematuria, incontinence, pain, , vagina discharge, urgency, others Neurological: denies: dizziness, fainting, headache, left sided numbness, left sided weakness, numbness, paresthesia, pre-existing deficit, right sided numbness, right sided weakness, seizure, speech problems, tingling, tremors, weakness, others Musculoskeletal: denies: back pain, gout, joint pain, joint swelling, muscle pain, muscle stiffness, neck pain, others Integumetry: denies: bruises, change in color, change in hair/nails, dryness, laceration, lesions, lumps, rash, wounds, others Allergic/Immunocompromised: denies: Difficulty Healing, Frequent Infections, Hives, Itching, others Hematologic/Lymphatic: denies: anemia, blood clots, easy bleeding, easy bruising, swollen glands, others Endocrine: denies: excessive hunger, excessive sweating, excessive thirst, excessive urination, flushing, intolerance to cold, intolerance to heat, unexplained weight gain, unexplained weight loss, others Psychiatric: denies: anxiety, bipolar disorder, depression, hopeless, panic disorder, schizophrenia, sleepless, suicidal, others All Other Systems: Reviewed and Negative (Comprehensive systems review obtained and negative except for what is stated in the HPI.) Physical Exam General Appearance: Moderate Distress (Patient is in moderate distress at time of evaluation due to abdominal pain concerns.), Normal HEENT: Normal ENT Inspection, Pharynx Normal, TMs Normal Neck: Full Range of Motion, Non-Tender, Normal, Normal Inspection Respiratory: Chest Non-Tender, Lungs Clear, No Accessory Muscle Use, No Respiratory Distress, Normal Breath Sounds Cardiovascular: No Edema, No JVD, No Murmur, No Gallop, Normal Peripheral Pulses, Regular Rate/Rhythm Breast Exam: Deferred Gastrointestinal: Other (Diffuse bilateral epigastric tenderness to palpation throughout. Abdomen was mildly rigid. No pulsatile masses.) Genitalia: Deferred Pelvic: Deferred Rectal: Deferred Extremities: No calf tenderness, Normal inspection Neurologic: Alert Cerebellar Function: NOT DONE Reflexes: NOT DONE Skin: Dry, Normal Color, Warm Lymphatic: No Adenopathy Was a procedure done? Was a procedure done?: No EKG EKG : Pulse Rate (adult): 62 [place]: Normal Cardiac Rhythm: NSR Block: None Hypertrophy: None ST: Normal Differential Dx Considerations may include: Acute pancreatitis, gastritis, gastroenteritis, GERD, cholelithiasis, cholecystitis, viral, spoiled food, UTI, among others X-Ray, Labs, Meds, VS Vital Signs Date Time Temp Pulse Resp B/P (MAP) Pulse Ox O2 Delivery O2 Flow Rate FiO2 08/18/25 13:34 66 16 157/52 08/18/25 12:26 74 20 98 Room Air* 0 21 08/18/25 12:23 64 18 146/71 08/18/25 12:17 62 08/18/25 11:57 62 08/18/25 11:46 97.8 64 18 146/71 95 97.8 Lab Test 08/18/25 13:30 08/18/25 13:06 08/18/25 12:01 Range/Units POC Glucose 240 H 70-106 mg/dl Lactic Acid Level 0.9 0.4-2.0 mmol/L Troponin I High Sensitivity < 3 L < 3 L </=34 ng/L White Blood Count 12.2 H 4.4-10.8 10^3/uL Red Blood Count 3.63 L 4.0-5.20 10^6/uL Hemoglobin 10.5 L 12.2-16.2 g/dL Hematocrit 32.1 L 36.0-46.0 % Mean Corpuscular Volume 88.5 80.0-100.0 fL Mean Corpuscular Hemoglobin 28.9 28.0-32.0 pg Mean Corpuscular Hemoglobin Concent 32.7 32.0-36.0 g/dL Red Cell Distribution Width 14.3 11.8-14.3 % Platelet Count 214 140-450 10^3/uL Mean Platelet Volume 11.1 H 6.9-10.8 fL Neutrophils (%) (Auto) 73.3 37.0-80.0 % Lymphocytes (%) (Auto) 17.9 10.0-50.0 % Monocytes (%) (Auto) 7.3 0.0-12.0 % Eosinophils (%) (Auto) 0.9 0.0-7.0 % Basophils (%) (Auto) 0.6 0.0-2.0 % Neutrophils # (Auto) 8.9 H 1.6-8.6 10 ^3/uL Lymphocytes # (Auto) 2.2 0.4-5.4 10 ^3/uL Monocytes # (Auto) 0.9 0-1.3 10 ^3/uL Eosinophils # (Auto) 0.1 0-0.8 10 ^3/uL Basophils # (Auto) 0.1 0-0.2 10 ^3/uL Nucleated Red Blood Cells 0.0 % Sodium Level 139 136-145 mmol/L Potassium Level 4.4 3.5-5.1 mmol/L Chloride Level 106 98-107 mmol/L Carbon Dioxide Level 19 L 20-31 mmol/L Anion Gap 14 5-15 Blood Urea Nitrogen 31 H 9-23 mg/dL Creatinine 1.39 H 0.550-1.02 mg/dL Glomerular Filtration Rate Calc 37 >90 mL/min BUN/Creatinine Ratio 22.3 H 10.0-20.0 Serum Glucose 328 H 74-106 mg/dL Calcium Level 9.5 8.7-10.4 mg/dL Total Bilirubin 0.9 0.2-1.0 mg/dL Aspartate Amino Transferase (AST) 77 H 13-40 U/L Alanine Aminotransferase (ALT) 30 7-40 U/L Alkaline Phosphatase 171 H 46-116 U/L Total Protein 8.1 5.7-8.2 g/dL Albumin 4.5 3.2-4.8 g/dL Lipase > 3500 H 12-53 U/L Current Medications Medications (Trade) Dose Ordered Sig/Jorge Route Start Time Stop Time Status Last Admin Hydromorphone HCl (Dilaudid Injection) 0.25 mg ONCE ONCE IV 08/18/25 12:00 08/18/25 12:03 DC 08/18/25 12:23 Ondansetron HCl (Zofran) 4 mg ONCE ONCE IV 08/18/25 12:00 08/18/25 12:03 DC 08/18/25 12:24 Sodium Chloride 1,000 ml @ 100 mls/hr Q10H ONCE IV 08/18/25 12:15 08/18/25 22:14 08/18/25 12:24 Insulin Human Regular (InsuLIN R) 10 units ONCE ONCE IV 08/18/25 13:15 08/18/25 13:16 DC 08/18/25 13:34 X-Ray, Labs, Meds, VS Comment All studies performed the ED were evaluated by me personally. Urine was pending at time of this note. Serum laboratories revealed continuing acute on chronic renal concerns, significant hyperglycemia and a lipase of over 3500 indicative of a chronic pancreatitis. Patient will be admitted for pain management as well as continued evaluation of pancreatic and renal concerns. Time of 1ST Reevaluation: 14:04 Reevaluation 1ST: Improved Consultation: PCP Patient Education/Counseling: Diagnosis, Treatment, Need For Follow Up Family Education/Counseling: Diagnosis, Treatment, No Family Present SEPSIS Sepsis Screen Date sepsis recognized/suspect: Aug 18, 2025 Time Sepsis recognized/suspect: 1149 Recent Procedure: No On Antibiotic Therapy: No Respiratory Rate >20: No Heart Rate >90: No Temp<36 C (96.8 F) or >38.3 C: No SBP <90 or MAP <65 mmHG: No New Acute Mental Status Change: No Is the patient on CPAP, BIPAP,: No Physician Orders Electrocardigram (08/18/25 11:51) Electrocardigram (08/18/25 12:51) Electrocardigram (08/18/25 14:51) Troponin-I Hs (08/18/25 14:51) Chest Xray 1 View (08/18/25 11:59) [place]ock Iv (08/18/25 ) Blood Culture (08/18/25 12:03) Sodium Chloride 0.9% (08/18/25 12:15) Urinalysis (08/18/25 12:29) Vital Signs Date Time Temp Pulse Resp B/P (MAP) Pulse Ox O2 Delivery O2 Flow Rate FiO2 08/18/25 13:34 66 16 157/52 08/18/25 12:26 74 20 98 Room Air* 0 21 08/18/25 12:23 64 18 146/71 08/18/25 12:17 62 08/18/25 11:57 62 08/18/25 11:46 97.8 64 18 146/71 95 97.8 Laboratory Tests Test 08/18/25 12:01 08/18/25 13:06 White Blood Count 12.2 10^3/uL (4.4-10.8) H Lactic Acid Level 0.9 mmol/L (0.4-2.0) Medications Medications Dose Ordered Sig/Jorge Route Start Time Stop Time Status Last Admin Dose Admin Hydromorphone HCl 0.25 mg ONCE ONCE IV 08/18/25 12:00 08/18/25 12:03 DC 08/18/25 12:23 Insulin Human Regular 10 units ONCE ONCE IV 08/18/25 13:15 08/18/25 13:16 DC 08/18/25 13:34 Ondansetron HCl 4 mg ONCE ONCE IV 08/18/25 12:00 08/18/25 12:03 DC 08/18/25 12:24 Sodium Chloride 1,000 ml @ 100 mls/hr Q10H ONCE IV 08/18/25 12:15 08/18/25 22:14 08/18/25 12:24 Departure 1 Departure Time of Disposition: 14:05 Impression: Primary Impression: Pancreatitis Additional Impressions: [id number] kidney injury Hyperglycemia due to diabetes mellitus Disposition: ADMITTED INPATIENT Condition: Stable Discharged With: Self, Relative Critical Care Note Critical Care Time?: No Stability Stability form required: No Heart Score Heart Score: Heart Score Response (Comments) Value History Moderate Suspicious 1 EKG Normal 0 Age >65 2 Risk Factors 1 or 2 risk factors 1 Troponin Normal limit 0 Total 4 I personally scribed for POLO HWANG PAC ([email or web address]) on 08/18/25 at 12:17. Electronically submitted by Tian Horta [email or web address]). POLO HWANG PAC Aug 18, 2025 12:17
[2025-08-18] MEDS: HYDROmorphone HCL 2 MG/ML VL/or syr IV ONE ×2 (12:23→15:31)
[2025-08-18] MEDS: ONDANSETRON HCL 4 MG/2 ML VIAL IV ONE (12:24)
[2025-08-18] MEDS: SODIUM CHLORIDE 0.9% 1,000 ML IV ONE (12:24)
[2025-08-18 12:26] VITALS: PULSE 74; RESP 20; O2SAT 98
[2025-08-18 12:27] LABS: Hematocrit 32.1 % (36.0-46.0); Hemoglobin 10.5 g/dL (12.2-16.2); Mean Corpuscular Hemoglobin 28.9 pg (28.0-32.0); Mean Corpuscular Volume 88.5 fL (80.0-100.0); Nucleated Red Blood Cells % 0.0 %
--- NOTE | 2025-08-18 12:36 | DVH ---
EXAM: XY CHEST XRAY 1 VIEW Indication: CP Technique: Single frontal view of the chest was obtained Comparison: None FINDINGS: Lines and Tubes: None Lungs: No focal consolidation. Pleura: No effusion. No pneumothorax. Cardiomediastinal contours: Unremarkable. Atherosclerotic vascular calcifications of the thoracic ao rta are noted. Bones: No acute osseous abnormality. IMPRESSION: No acute cardiopulmonary disease.
[2025-08-18 12:41] LABS: Alanine Aminotransferase 30 U/L (7-40); Anion Gap 14 (5-15); BUN/Creatinine Ratio 22.3 (10.0-20.0); Calcium 9.5 mg/dL (8.7-10.4); Chloride 106 mmol/L (98-107); Potassium 4.4 mmol/L (3.5-5.1); Sodium 139 mmol/L (136-145); Total Protein 8.1 g/dL (5.7-8.2)
[2025-08-18 12:42] LABS: Albumin 4.5 g/dL (3.2-4.8); Bilirubin, Total 0.9 mg/dL (0.2-1.0)
[2025-08-18 12:43] LABS: Alkaline Phosphatase 171 U/L (46-116); Blood Urea Nitrogen 31 mg/dL (9-23); Carbon Dioxide 19 mmol/L (20-31); Glucose 328 mg/dL (74-106)
[2025-08-18 12:51] LABS: Lipase > 3500 U/L (12-53)
[2025-08-18] MEDS: InsuLIN REG 1unit/0.01ml Soln (100units/ml) IV ONE (13:34)
[2025-08-18] MEDS ORDERED: DEXTROSE (50%) 50ML SYRG IV PRN ×2 (16:15→16:30)
--- NOTE | 2025-08-18 16:21 | DVHHPRES ---
History of Present Illness Resident Creating Document: JORDEN DARDEN RESIDENT History of Present Illness Brief history on admission: This is an 89-year-old female with past medical history of Insulin-dependent diabetes, hypertension, chronic pancreatitis, recurrent UTI, she presented to the ER with chief complain of epigastric pain described as pressure-like, dull, 9/10, nonradiating, increases with inspiration, associated with nausea, vomiting and headache. She reports 2 episodes of vomiting with food content, no blood seen. In May 2025, she was admitted for acute on chronic pancreatitis but denied surgical modalities. She denies constipation, diarrhea, fever, chills, shortness of breath, burning micturition. Previous hospitalization: In May 2025 for acute pancreatitis sepsis secondary to UTI PMHx: Insulin-dependent diabetes, hypertension, chronic pancreatitis, recurrent UTI PSHx: No significant surgical history Social history: Denies smoking, alcohol, recreational drug use. Full code, next to kin is daughter Home medication: glimepiride, losartan, nifedipine Allergic history: Denies allergies 08/18/2025: Patient was examined at bedside today. Patient is admitted for further evaluation and management. Review of Systems Review of Systems ROS: Constitutional: Denies weight loss, fever and chills. HEENT: Denies changes in vision and hearing. Respiratory: Denies shortness of breath and cough Cardiovascular: Denies chest discomfort or palpitations GI: Abdominal pain, nausea, vomiting. : Denies dysuria and urinary frequency. Musculoskeletal: Denies myalgias and joint pain Skin: Denies rash and pruritus. Neurological: Denies dizziness, headache, vision or hearing problems Allergies: Coded Allergies: NO KNOWN ALLERGIES (Unverified , 06/02/25) Medications Current Medications Medications Dose Ordered Sig/Jorge Route Start Time Stop Time Status Last Admin Dose Admin Ondansetron HCl 4 mg Q4HP PRN IV 08/18/25 16:15 Enoxaparin Sodium 30 mg DAILY SC 08/18/25 16:15 Diagnostic Test (Pha) 1 strip ACHS 08/18/25 17:00 Insulin Human Regular ACHS SC 08/18/25 17:00 Dextrose 50 ml UD PRN IV 08/18/25 16:15 Hydromorphone HCl 0.25 mg Q6HP PRN IV 08/18/25 16:30 UNV Exam Vital Signs Vital Signs Date Time Temp Pulse Resp B/P (MAP) Pulse Ox O2 Delivery O2 Flow Rate FiO2 08/18/25 16:10 97 Room Air* 0 21 08/18/25 16:01 77 18 133/72 08/18/25 16:00 98.2 98.2 Exam General: Patient alert and oriented in person, place and time. Patient following commands. HEENT: Normocephalic, atraumatic, moist mucous membranes Respiratory/pulmonary: Clear lungs bilaterally, vesicular murmurs present in almost all lung slater, no associated crackles or wheezes. Cardiovascular: Normal heart sounds S1 and S2 with no associated murmurs Abdomen: Mild epigastric tenderness Extremities: There is no peripheral edema present at the lower extremities. Peripheral Pulses: 3+ Radial (R). 3+ Radial (L). 3+ Dorsalis pedis (R). 3+ Dorsalis pedis(L) Skin: No rashes or pruritus, there is no sacral edema present at this time. Neurological: Intact cranial nerves with no focal neurologic deficits Labs/Xrays Labs Test 08/18/25 13:30 08/18/25 13:06 08/18/25 12:01 Range/Units POC Glucose 240 H 70-106 mg/dl Lactic Acid Level 0.9 0.4-2.0 mmol/L Troponin I High Sensitivity < 3 L </=34 ng/L White Blood Count 12.2 H 4.4-10.8 10^3/uL Red Blood Count 3.63 L 4.0-5.20 10^6/uL Hemoglobin 10.5 L 12.2-16.2 g/dL Hematocrit 32.1 L 36.0-46.0 % Mean Corpuscular Volume 88.5 80.0-100.0 fL Mean Corpuscular Hemoglobin 28.9 28.0-32.0 pg Mean Corpuscular Hemoglobin Concent 32.7 32.0-36.0 g/dL Red Cell Distribution Width 14.3 11.8-14.3 % Platelet Count 214 140-450 10^3/uL Mean Platelet Volume 11.1 H 6.9-10.8 fL Neutrophils (%) (Auto) 73.3 37.0-80.0 % Lymphocytes (%) (Auto) 17.9 10.0-50.0 % Monocytes (%) (Auto) 7.3 0.0-12.0 % Eosinophils (%) (Auto) 0.9 0.0-7.0 % Basophils (%) (Auto) 0.6 0.0-2.0 % Neutrophils # (Auto) 8.9 H 1.6-8.6 10 ^3/uL Lymphocytes # (Auto) 2.2 0.4-5.4 10 ^3/uL Monocytes # (Auto) 0.9 0-1.3 10 ^3/uL Eosinophils # (Auto) 0.1 0-0.8 10 ^3/uL Basophils # (Auto) 0.1 0-0.2 10 ^3/uL Nucleated Red Blood Cells 0.0 % Sodium Level 139 136-145 mmol/L Potassium Level 4.4 3.5-5.1 mmol/L Chloride Level 106 98-107 mmol/L Carbon Dioxide Level 19 L 20-31 mmol/L Anion Gap 14 5-15 Blood Urea Nitrogen 31 H 9-23 mg/dL Creatinine 1.39 H 0.550-1.02 mg/dL Glomerular Filtration Rate Calc 37 >90 mL/min BUN/Creatinine Ratio 22.3 H 10.0-20.0 Serum Glucose 328 H 74-106 mg/dL Calcium Level 9.5 8.7-10.4 mg/dL Total Bilirubin 0.9 0.2-1.0 mg/dL Aspartate Amino Transferase (AST) 77 H 13-40 U/L Alanine Aminotransferase (ALT) 30 7-40 U/L Alkaline Phosphatase 171 H 46-116 U/L Total Protein 8.1 5.7-8.2 g/dL Albumin 4.5 3.2-4.8 g/dL Lipase > 3500 H 12-53 U/L SEPSIS Sepsis Screen Date sepsis recognized/suspect: Aug 18, 2025 Time Sepsis recognized/suspect: 1609 Recent Procedure: No On Antibiotic Therapy: No Respiratory Rate >20: No Heart Rate >90: No Temp<36 C (96.8 F) or >38.3 C: No SBP <90 or MAP <65 mmHG: No New Acute Mental Status Change: No Is the patient on CPAP, BIPAP,: No Physician Orders Electrocardigram (08/18/25 11:51) Electrocardigram (08/18/25 12:51) Electrocardigram (08/18/25 14:51) Chest Xray 1 View (08/18/25 11:59) Heplock Iv (08/18/25 ) Blood Culture (08/18/25 12:03) Sodium Chloride 0.9% (08/18/25 12:15) Urinalysis (08/18/25 12:29) Blood Culture (08/18/25 15:31) Admit (08/18/25 16:06) Allergies (08/18/25 16:06) Code Status (08/18/25 16:06) Oxygen Per Hour (08/18/25 16:06) Ondansetron Hcl (Zofran) (08/18/25 16:15) Complete Blood Count (08/19/25 04:00) Comprehensive Metabolic Panel (08/19/25 04:00) Npo (Nothing By Mouth) Diet (08/18/25 Dinner) Condition: Serious (08/18/25 16:06) Enoxaparin Sodium (Lovenox) (08/18/25 16:15) Oxygen By Nasal Cannula (08/18/25 16:06) Stat Ekg For Chest Pain (08/18/25 16:06) Notify Md Of Changes From Base (08/18/25 16:06) Children'S Nursery Assistant For 24 Hours (08/18/25 16:06) Emergency Dysrhythmia Protocol (08/18/25 16:06) Rhythm Strips Once Every Shift (08/18/25 16:06) Glucose Blood (Accu-Chek Comfort Curve T (08/18/25 17:00) Insulin R (Human) (Insulin R) (08/18/25 17:00) Dextrose 50% Syringe (08/18/25 16:15) Echo 2d Mode Cardiac Dop (08/18/25 16:06) B-Type Natriuretic Peptide (08/18/25 16:06) Abdomen Complete Sonogram (08/18/25 16:06) Magnesium (08/18/25 16:06) Phosphorus (08/18/25 16:06) Thyroid Stimulating Hormone (08/18/25 16:06) Vitamin D, 25-Hydroxy (08/18/25 16:06) C-Reactive Protein (08/18/25 16:06) Drug Screen (08/18/25 16:06) Calcium (08/18/25 16:15) Hydromorphone Injection (Dilaudid Inject (08/18/25 16:30) Vital Signs Date Time Temp Pulse Resp B/P (MAP) Pulse Ox O2 Delivery O2 Flow Rate FiO2 08/18/25 16:10 97 Room Air* 0 21 08/18/25 16:01 77 18 133/72 08/18/25 16:00 98.2 71 18 166/68 (100) 98 98.2 08/18/25 15:34 98.2 70 18 148/51 (83) 98 98.2 08/18/25 15:31 70 18 148/51 08/18/25 13:35 97.9 66 16 157/71 (99) 97 97.9 08/18/25 13:34 66 16 157/52 08/18/25 12:26 74 20 98 Room Air* 0 21 08/18/25 12:23 64 18 146/71 08/18/25 12:17 62 08/18/25 11:57 62 08/18/25 11:46 97.8 64 18 146/71 95 97.8 Laboratory Tests Test 08/18/25 12:01 08/18/25 13:06 White Blood Count 12.2 10^3/uL (4.4-10.8) H Lactic Acid Level 0.9 mmol/L (0.4-2.0) Medications Medications Dose Ordered Sig/Jorge Route Start Time Stop Time Status Last Admin Dose Admin Hydromorphone HCl 0.25 mg ONCE ONCE IV 08/18/25 12:00 08/18/25 12:03 DC 08/18/25 12:23 0.25 MG Hydromorphone HCl 0.25 mg ONCE ONCE IV 08/18/25 15:00 08/18/25 15:01 DC 08/18/25 15:31 0.25 MG Insulin Human Regular 10 units ONCE ONCE IV 08/18/25 13:15 08/18/25 13:16 DC 08/18/25 13:34 10 UNITS Ondansetron HCl 4 mg ONCE ONCE IV 08/18/25 12:00 08/18/25 12:03 DC 08/18/25 12:24 4 MG Sodium Chloride 1,000 ml @ 100 mls/hr Q10H ONCE IV 08/18/25 12:15 08/18/25 22:14 08/18/25 12:24 100 MLS/HR Assessment/Plan Assessment/Plan Acute pancreatitis with a previous history of chronic pancreatitis Transaminitis Cholecystitis Elevated lipase CXR shows no acute cardiopulmonary disease In May 2025 MRCP shows distended gallbladder with cholelithiasis, without signs of cholecystitis. Punctate cystic lesions are present in the pancreas measuring up to 0.2 cm. 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 Full code DISPOSITION: Med/surge Patient's status and plan discussed with the patient. Case discussed with Dr. Campbell Plan discussed with: Patient, Other (nurses) My Orders Orders - JORDEN DARDEN RESIDENT Procedure Category Date Status Time Admit ADMIT 08/18/25 Transmitted 16:06 Allergies PRINCE 08/18/25 In Process 16:06 Code Status CODE 08/18/25 Transmitted 16:06 Oxygen Per Hour RT 08/18/25 Transmitted 16:06 Ondansetron Hcl PHA 08/18/25 In Process (Zofran) 16:15 Complete Blood Count LAB 08/19/25 Verified 04:00 Comprehensive LAB 08/19/25 Verified Metabolic Panel 04:00 Npo (Nothing By DIET 08/18/25 Transmitted Mouth) Diet Dinner Condition: Serious PRINCE 08/18/25 In Process 16:06 Enoxaparin Sodium PHA 08/18/25 In Process (Lovenox) 16:15 Oxygen By Nasal RT 08/18/25 Transmitted Cannula 16:06 Stat Ekg For Chest PRINCE 08/18/25 In Process Pain 16:06 Notify Md Of Changes [facility] 08/18/25 In Process From Base 16:06 Children'S Nursery Assistant For [facility] 08/18/25 In Process 24 Hours 16:06 Emergency Dysrhythmia [facility] 08/18/25 In Process Protocol 16:06 Rhythm Strips Once [facility] 08/18/25 In Process Every Shift 16:06 Glucose Blood PHA 08/18/25 In Process (Accu-Chek Comfort 17:00 Insulin R (Human) PHA 08/18/25 In Process (Insulin R) 17:00 Dextrose 50% Syringe PHA 08/18/25 Logged 16:15 Echo 2d Mode Cardiac US 08/18/25 Logged DOP 16:06 B-Type Natriuretic LAB 08/18/25 Logged Peptide 16:06 Abdomen Complete US 08/18/25 Logged Sonogram 16:06 Magnesium LAB 08/18/25 Logged 16:06 Phosphorus LAB 08/18/25 Logged 16:06 Thyroid Stimulating LAB 08/18/25 Logged Hormone 16:06 Vitamin D, 25-Hydroxy LAB 08/18/25 Logged 16:06 C-Reactive Protein LAB 08/18/25 Logged 16:06 Drug Screen LAB 08/18/25 Logged 16:06 Calcium LAB 08/18/25 Logged 16:15 Hydromorphone PHA 08/18/25 Transmitted Injection (Dilaudid 16:30 Date of Service: Aug 18, 2025 Billing Provider: GAL CAMPBELL MD Common Visit Codes: 53149-[id number] INP/OBS CARE (HIGH) Secondary Visit Codes: 18985-[id number] CARE PLAN 30 MINUTES JORDEN DARDEN RESIDENT Aug 18, 2025 16:20
[2025-08-18] MEDS: ENOXAPARIN SOD 30 MG/0.3 ML SYRINGE SC SCH (16:35)
[2025-08-18] MEDS ORDERED: InsuLIN REG 1unit/0.01ml Soln (100units/ml) SC SCH (17:00)
[2025-08-18] MEDS ORDERED: ACCU-CHEK COMFORT CURVE STRIP VI SCH (17:00)
[2025-08-18] MEDS: INSULIN LANTUS (GLARGINE) 1 /0.01ml (100units/ml) SC SCH (17:03)
[2025-08-18] MEDS: FAMOTIDINE (10MG/ML) 2ML VL IV ONE (17:03)
--- NOTE | 2025-08-18 17:09 | DVH ---
Technique: Real-time ultrasound imaging of the abdomen was performed with grayscale and color Doppler . Indication: Acute abdomen Comparison: None Findings: Liver measures 11 cm. It is increased in echogenicity and echotexture without focal mass. Portal vei n is normal in caliber and demonstrates normal hepatopetal flow. Gallbladder demonstrates cholelithiasis. There is pericholecystic edema. Gallbladder wall thickened t o 9 mm. There is gallbladder sludge. The gallbladder is distended. The common bile duct measures 10 mm. The right kidney measures 6.7 cm. The left kidney measures 8.8 cm. No hydronephrosis or sonographic e vidence of nephrolithiasis. The bilateral kidneys are echogenic. Left renal cyst measuring 1.5 cm. The visualized portion of the pancreas is unremarkable. Spleen measures cm. The visualized portion of the IVC is unremarkable. Impression: Cholelithiasis with pericholecystic edema, sludge, gallbladder wall thickening. Findings are suggest stan of cholecystitis. Recommend HIDA scan and surgical consultation. Echogenic liver which can be seen with hepatic steatosis, cirrhosis. Echogenic And small bilateral Kidneys Suggesting medical renal disease.
[2025-08-18] MEDS: LACTATED RINGER'S 1,000 ML IV ONE (17:30)
[2025-08-18 17:37] VITALS: BP 152/72; PULSE 80; RESP 17; TEMP 97.9; O2SAT 95
[2025-08-18 17:41] LABS: Magnesium 1.8 mg/dL (1.6-2.6)
--- NOTE | 2025-08-18 18:09 | ECG ---
[facility] Test Date: 2025-08-18 Test Time: 11:57:06 Pat Name: KARTHIK BROCK Department: Room: 0287T Gender: F Log Roper: ashley : 1935 Requested By: POLO HWANG Order Number: [id number] Reading MD: Ricky Perez Measurements Intervals [place] Rate: 62 P: 54 OH: 175 QRS: 71 QRSD: 103 T: 78 QT: 402 QTc: 409 Interpretive Statements Sinus rhythm ST elevation, consider inferior injury Electronically Signed On 08-21-2025 14:58:00 PDT by Ricky Perez Please click the below link to view image of tracing.
[2025-08-18] MEDS: ACCU-CHEK COMFORT CURVE STRIP VI SCH (18:17)
[2025-08-18] MEDS: LACTATED RINGER'S 1,000 ML IV SCH (18:32)
[2025-08-18] MEDS: InsuLIN REG 1unit/0.01ml Soln (100units/ml) SC SCH (18:45)
[2025-08-18] MEDS: CIPROFLOXACIN 400MG/200ML 200 ML IV ONE (18:46)
[2025-08-18 19:30] VITALS: PULSE 80; RESP 16; O2SAT 96
[2025-08-18 21:00] VITALS: BP 148/56; PULSE 81; RESP 18; TEMP 98.1; O2SAT 93
[2025-08-18] MEDS: URSODIOL 300 MG CAP PO SCH (21:55)
[2025-08-18] MEDS: HYDROmorphone HCL 2 MG/ML VL/or syr IV PRN (22:13)
[2025-08-19] VITALS (9 sets, daily range): BP systolic 137–159; BP diastolic 51–76; PULSE 61–90; RESP 16–18; TEMP 98–99.8; O2SAT 93–97
[2025-08-19 00:42] LABS: Urine Protein, UAD 1+ (Negative)
[2025-08-19 01:20] LABS: Amphetamine Screen, Urine Neg (NEGATIVE); Barbiturate Scree,Urine Neg (NEGATIVE); Benzodiazephine Screen, Urine Neg (NEGATIVE); Cannabinoid Screen, Urine Neg (NEGATIVE); Cocaine Screen, Urine Neg (NEGATIVE); Opiate Scree,Urine Neg (NEGATIVE); Phencyclidine Screen, Urine Neg (NEGATIVE)
[2025-08-19 07:20] LABS: Hematocrit 31.2 % (36.0-46.0); Hemoglobin 10.3 g/dL (12.2-16.2); Mean Corpuscular Hemoglobin 29.0 pg (28.0-32.0); Mean Corpuscular Volume 87.8 fL (80.0-100.0); Nucleated Red Blood Cells % 0.0 %
[2025-08-19 07:47] LABS: Anion Gap 12 (5-15); BUN/Creatinine Ratio 19.8 (10.0-20.0); Blood Urea Nitrogen 22 mg/dL (9-23); Calcium 9.0 mg/dL (8.7-10.4); Carbon Dioxide 22 mmol/L (20-31); Potassium 4.2 mmol/L (3.5-5.1); Sodium 143 mmol/L (136-145); Total Protein 7.4 g/dL (5.7-8.2)
[2025-08-19 07:48] LABS: Albumin 4.2 g/dL (3.2-4.8)
[2025-08-19 07:49] LABS: Alanine Aminotransferase 220 U/L (7-40); Alkaline Phosphatase 182 U/L (46-116); Bilirubin, Total 2.5 mg/dL (0.2-1.0); Chloride 109 mmol/L (98-107); Glucose 160 mg/dL (74-106)
[2025-08-19] MEDS: CIPROFLOXACIN 400MG/200ML 200 ML IV SCH (11:48)
[2025-08-19] MEDS: FAMOTIDINE (10MG/ML) 2ML VL IV SCH (11:48)
--- NOTE | 2025-08-19 13:36 | DVHINCON2 ---
Date of service: Aug 19, 2025 History of Present Illness 89-year-old female with a history of diabetes, hypertension and chronic pancreatitis who was recently discharged from the hospital for similar gallstone pancreatitis readmitted secondary to abdominal pain, nausea and vomiting. During her last hospitalization, patient's family refused surgery. Today patient feels better and with the improvement in her abdominal pain. All the history was obtained from the charts and her daughter was at bedside. Past Medical History Hypertension. Diabetes. Chronic pancreatitis. History of UTIs. Past Surgical History No recent abdominal surgeries. Family History: Hypertension G8 MOTHER Family History Noncontributory Social History No alcohol, tobacco, IV drug use Allergies: Coded Allergies: NO KNOWN ALLERGIES (Unverified , 06/02/25) Home Meds Reported Medications Nifedipine (Nifedipine Er) 30 Mg Tab, 1 TAB PO DAILY, #90 TAB 1 Refill 06/04/25 Losartan Potassium (Losartan Potassium) 50 Mg Tab, 50 MG PO DAILY for 30 Days, MG 06/04/25 Isosorbide Dinitrate (Isosorbide Dinitrate) 5 Mg Tab, 5 MG PO HS for 30 Days, MG 06/03/25 Glimepiride (Glimepiride) 2 Mg Tab, 2 MG PO DAILY for 30 Days, MG 06/03/25 Current Medications Current Medications Medications (Trade) Dose Ordered Sig/Jorge Route PRN Reason Start Time Stop Time Status Last Admin Ondansetron HCl (Zofran) 4 mg Q4HP PRN IV NAUSEA / VOMITING 08/18/25 16:15 Enoxaparin Sodium (Lovenox) 30 mg DAILY SC 08/18/25 16:15 08/19/25 11:48 Diagnostic Test (Pha) (Accu-Chek Comfort Curve T) 1 strip ACHS 08/18/25 17:00 08/18/25 16:25 DC Insulin Human Regular (InsuLIN R) ACHS SC 08/18/25 17:00 08/18/25 16:25 DC Dextrose 50 ml UD PRN IV Blood Sugar LESS THAN 60 08/18/25 16:15 08/18/25 16:25 DC Hydromorphone HCl (Dilaudid Injection) 0.25 mg Q6HP PRN IV SEVERE PAIN (7-10 PAIN SCALE) 08/18/25 16:30 08/19/25 06:44 Insulin Glargine (Lantus) 6 units HS SC 08/18/25 16:30 08/18/25 22:12 Diagnostic Test (Pha) (Accu-Chek Comfort Curve T) 1 strip Q6HR 08/18/25 18:00 08/19/25 11:56 Insulin Human Regular (InsuLIN R) Q6HR SC 08/18/25 18:00 08/19/25 06:05 Dextrose 50 ml UD PRN IV Blood Sugar LESS THAN 60 08/18/25 16:30 Famotidine (Pepcid Injection) 20 mg DAILY IV 08/19/25 10:00 08/19/25 11:48 Lactated Ringer's 1,000 ml @ 100 mls/hr Q10H IV 08/18/25 17:30 08/19/25 03:30 Ciprofloxacin 200 ml @ 200 mls/hr Q18H IV 08/19/25 12:00 08/19/25 12:27 DC 08/19/25 11:48 Metronidazole 100 ml @ 100 mls/hr Q8HR IV 08/18/25 22:00 08/19/25 06:05 Ursodiol (Actigall) 300 mg BID PO 08/18/25 22:00 Meropenem 50 ml @ 17 mls/hr Q12H IV 08/20/25 01:00 08/19/25 13:25 DC Meropenem 50 ml @ 17 mls/hr Q8HR IV 08/19/25 21:00 UNV Vital Signs Vital Signs Date Time Temp Pulse Resp B/P (MAP) Pulse Ox O2 Delivery O2 Flow Rate FiO2 08/19/25 12:44 98.7 75 17 142/76 (98) 93 98.7 08/19/25 08:00 Room Air* 0 21 Physical Exam GEN: Elderly female in no acute distress. HEENT: Normocephalic atraumatic. Moist mucous membranes. Slight scleral icterus. CV: RRR Respiratory: Coarse breath sounds ABD: Minimal epigastric tenderness to palpation without guarding or rebound. Nondistended. Abdominal ultrasound: Cholelithiasis with pericholecystic edema. Gallbladder wall thickened to 9 mm. Common bile duct is 10 mm. Labs/Diagnostic Data Labs Test 08/19/25 11:46 08/19/25 06:35 08/18/25 23:55 08/18/25 13:06 Range/Units POC Glucose 119 H 70-106 mg/dl White Blood Count 19.8 #H 4.4-10.8 10^3/uL Red Blood Count 3.56 L 4.0-5.20 10^6/uL Hemoglobin 10.3 L 12.2-16.2 g/dL Hematocrit 31.2 L 36.0-46.0 % Mean Corpuscular Volume 87.8 80.0-100.0 fL Mean Corpuscular Hemoglobin 29.0 28.0-32.0 pg Mean Corpuscular Hemoglobin Concent 33.1 32.0-36.0 g/dL Red Cell Distribution Width 14.2 11.8-14.3 % Platelet Count 183 140-450 10^3/uL Mean Platelet Volume 10.8 6.9-10.8 fL Neutrophils (%) (Auto) 88.6 H 37.0-80.0 % Lymphocytes (%) (Auto) 6.7 L 10.0-50.0 % Monocytes (%) (Auto) 4.5 0.0-12.0 % Eosinophils (%) (Auto) 0.0 0.0-7.0 % Basophils (%) (Auto) 0.2 0.0-2.0 % Neutrophils # (Auto) 17.6 H 1.6-8.6 10 ^3/uL Lymphocytes # (Auto) 1.3 0.4-5.4 10 ^3/uL Monocytes # (Auto) 0.9 0-1.3 10 ^3/uL Eosinophils # (Auto) 0 0-0.8 10 ^3/uL Basophils # (Auto) 0 0-0.2 10 ^3/uL Nucleated Red Blood Cells 0.0 % Sodium Level 143 136-145 mmol/L Potassium Level 4.2 3.5-5.1 mmol/L Chloride Level 109 H 98-107 mmol/L Carbon Dioxide Level 22 20-31 mmol/L Anion Gap 12 5-15 Blood Urea Nitrogen 22 9-23 mg/dL Creatinine 1.11 H 0.550-1.02 mg/dL Glomerular Filtration Rate Calc 48 >90 mL/min BUN/Creatinine Ratio 19.8 10.0-20.0 Serum Glucose 160 H 74-106 mg/dL Calcium Level 9.0 8.7-10.4 mg/dL Total Bilirubin 2.5 H 0.2-1.0 mg/dL Aspartate Amino Transferase (AST) 362 H 13-40 U/L Alanine Aminotransferase (ALT) 220 H 7-40 U/L Alkaline Phosphatase 182 H 46-116 U/L Total Protein 7.4 5.7-8.2 g/dL Albumin 4.2 3.2-4.8 g/dL Lipase 3176 H 12-53 U/L Urine Color Yellow Yellow Urine Clarity Turbid H Clear Urine pH 8.0 5.0-9.0 Urine Specific [place] 1.014 1.001-1.035 Urine Protein 1+ H Negative Urine Ketones Negative Negative Urine Blood 2+ H Negative /uL Urine Nitrite Negative Negative Urine Bilirubin Negative Negative Urine Urobilinogen 2 H Negative mg/dL Urine Leukocyte Esterase 2+ Negative /uL Urine RBC 290 0 - 4 /hpf Urine Microscopic WBC 72 H 0-5 /HPF Urine Squamous Epithelial Cells Few <5 /hpf Urine Bacteria None seen None Seen /hpf Urine Glucose 3+ H Normal mg/dL Urine Opiates Screen Neg NEGATIVE Urine Fentanyl Screen Neg NEGATIVE Urine Barbiturates Screen Neg NEGATIVE Urine Phencyclidine Screen Neg NEGATIVE Urine Amphetamines Screen Neg NEGATIVE Urine Benzodiazepines Screen Neg NEGATIVE Urine Cocaine Screen Neg NEGATIVE Urine Cannabinoids Screen Neg NEGATIVE Lactic Acid Level 0.9 0.4-2.0 mmol/L Phosphorus Level 3.2 2.4-5.1 mg/dL Magnesium Level 1.8 1.6-2.6 mg/dL Troponin I High Sensitivity < 3 L </=34 ng/L C-Reactive Protein High Sensitivity 0.15 <1.0 mg/dL B-Type Natriuretic Peptide 59.49 0-100 pg/mL Vitamin D 25-Hydroxy 30.3 30.0-100 ng/mL Thyroid Stimulating Hormone (TSH) 3.85 0.55-4.78 uIU/mL Microbiology Date/Time Source Procedure Growth Status 08/18/25 13:06 Blood Blood Culture - Preliminary Resulted Assessment 1. Acute cholecystitis 2. Gallstone pancreatitis Plan/Recommendation 1. We will order an MRCP for possible choledocholithiasis. If it is positive for common bile duct stone, recommend GI consultation for ERCP. 2. Also spoke to the patient's daughter regarding possibility of surgery. However the daughter was very reluctant to proceed with the surgery due to her risk factors. We will continue the IV antibiotics. I also recommended percutaneous cholecystostomy on Thursday if she did not want surgery. The andrade r will think about it today and decide tomorrow. Plan discussed with: Daughter KEYA GARZA Arianne WOLF Aug 19, 2025 13:36
--- NOTE | 2025-08-19 13:54 | DVHSR ---
APPROVED REPORT EXAM: Two-dimensional and M-mode echocardiogram with Doppler and color Doppler. Blood Pressure: 137/51 mmHg INDICATION Heart Failure RISK FACTORS Height: 4' 9", Weight: 101 DIMENSIONS LVDd3.9 (3.8-5.7cm)LA (2D)2.8 (1.9-4.0cm)Aortic Root3.1 (2.0-3.7cm) LVDs2.8 (2.5-4.0cm)LA (MM) (1.9-4.0cm)Aortic Cusp Exc1.6 (1.5-2.0cm) EF (%) 55.0 (55-70%)Rt. Atrium3.3 (1.9-4.0cm)Asc. Aorta cm IVSd0.7 (0.7-1.1cm)RV (D) (1.8-2.4cm) PWd0.8 (0.7-1.1cm) Mitral Valve MitralMitral Stenosis E wave0.70m/sMV Mean GR.mmHg A wave1.00m/sMV Peak GR.mmHg E/A ratio0.72D MVAcm2 Aortic Valve Aortic ValveAortic Stenosis V10.70m/Emmy Mean GR.4mmHg V21.50m/Emmy Peak GR.9mmHg Pulmonic Valve V20.50m/s Tricuspid Valve TR Velocity2.70m/s [id number] Conclusion lvef 55% mild lvh normal rv function normal atria no severe valve abnormalities noted
[2025-08-19] MEDS: MEROPENEM 500MG IVPB 50 ML IV ONE (14:24)
[2025-08-19] MEDS: ONDANSETRON HCL 4 MG/2 ML VIAL IV PRN (14:53)
[2025-08-19 14:59] LABS: INR 1.12 (0.9-1.15); Prothrombin Time 11.7 sec (9.3-11.8)
--- NOTE | 2025-08-19 16:01 | DVHPNRES ---
Progress Note Date Seen: Aug 19, 2025 Resident Creating Document: ARIANA SAHU Medical Necessity Reason Pt with a Central, PICC or Fol: No Subjective Review of Systems Patient seen at bedside. Complains of headache and sore throat. Patient on NPO. Waiting for surgery consult. History of present illness: This is an 89-year-old female with past medical history of Insulin-dependent diabetes, hypertension, chronic pancreatitis, recurrent UTI, she presented to the ER with chief complain of epigastric pain described as pressure-like, dull, 9/10, nonradiating, increases with inspiration, associated with nausea, vomiting and headache. She reports 2 episodes of vomiting with food content, no blood seen. In May 2025, she was admitted for acute on chronic pancreatitis but denied surgical modalities. She denies constipation, diarrhea, fever, chills, shortness of breath, burning micturition. Previous hospitalization: In May 2025 for acute pancreatitis sepsis secondary to UTI PMHx: Insulin-dependent diabetes, hypertension, chronic pancreatitis, recurrent UTI PSHx: No significant surgical history Social history: Denies smoking, alcohol, recreational drug use. Full code, next to kin is daughter Home medication: glimepiride, losartan, nifedipine Allergic history: Denies allergies ROS: Constitutional: Denies weight loss, fever and chills. HEENT: Denies changes in vision and hearing. Respiratory: Denies shortness of breath and cough Cardiovascular: Denies chest discomfort or palpitations GI: Abdominal pain, nausea, vomiting. : Denies dysuria and urinary frequency. Musculoskeletal: Denies myalgias and joint pain Skin: Denies rash and pruritus. Neurological: Denies dizziness, headache, vision or hearing problems Objective vital signs Vital Sign Date Time Temp Pulse Resp B/P (MAP) Pulse Ox O2 Delivery O2 Flow Rate FiO2 08/19/25 12:44 98.7 75 17 142/76 (98) 93 98.7 08/19/25 08:00 Room Air* 0 21 Total Intake and Output 08/18/25 08/18/25 08/19/25 15:00 23:00 07:00 Intake Total 1000 ml 50 ml 100 ml Balance 1000 ml 50 ml 100 ml medications Current Medications Medications Dose Ordered Sig/Jorge Route Start Time Stop Time Status Last Admin Dose Admin Ondansetron HCl 4 mg Q4HP PRN IV 08/18/25 16:15 08/19/25 14:53 4 MG Enoxaparin Sodium 30 mg DAILY SC 08/18/25 16:15 08/19/25 11:48 30 MG Hydromorphone HCl 0.25 mg Q6HP PRN IV 08/18/25 16:30 08/19/25 06:44 0.25 MG Insulin Glargine 6 units HS SC 08/18/25 16:30 08/18/25 22:12 6 UNITS Diagnostic Test (Pha) 1 strip Q6HR 08/18/25 18:00 08/19/25 11:56 1 STRIP Insulin Human Regular Q6HR SC 08/18/25 18:00 08/19/25 06:05 3 UNITS Dextrose 50 ml UD PRN IV 08/18/25 16:30 Famotidine 20 mg DAILY IV 08/19/25 10:00 08/19/25 11:48 20 MG Lactated Ringer's 1,000 ml @ 100 mls/hr Q10H IV 08/18/25 17:30 08/19/25 03:30 100 MLS/HR Metronidazole 100 ml @ 100 mls/hr Q8HR IV 08/18/25 22:00 08/19/25 14:41 100 MLS/HR Ursodiol 300 mg BID PO 08/18/25 22:00 Meropenem 50 ml @ 16.667 mls/ hr Q12HR IV 08/20/25 02:00 Examination General: Patient alert and oriented in person, place and time. Patient following commands. HEENT: Normocephalic, atraumatic, moist mucous membranes Respiratory/pulmonary: Clear lungs bilaterally, vesicular murmurs present in almost all lung slater, no associated crackles or wheezes. Cardiovascular: Normal heart sounds S1 and S2 with no associated murmurs Abdomen: Mild epigastric tenderness Extremities: There is no peripheral edema present at the lower extremities. Peripheral Pulses: 3+ Radial (R). 3+ Radial (L). 3+ Dorsalis pedis (R). 3+ Dorsalis pedis(L) Skin: No rashes or pruritus, there is no sacral edema present at this time. Neurological: Intact cranial nerves with no focal neurologic deficits laboratory and microbiology Laboratory Tests 08/19/25 06:35 Test 08/19/25 06:35 Range/Units Serum Glucose 160 H 74-106 mg/dL Microbiology Date/Time Source Procedure Growth Status 08/18/25 13:06 Blood Blood Culture - Preliminary Resulted Problem List/Assessment/Plan Problem List/Assessment/Plan Assessment and plan Acute cholangitis Continue NPO IV meropenem HIDA scan Acute pancreatitis with a previous history of chronic pancreatitis Transaminitis Cholecystitis Elevated lipase CXR shows no acute cardiopulmonary disease In May 2025 MRCP shows distended gallbladder with cholelithiasis, without signs of cholecystitis. Punctate cystic lesions are present in the pancreas measuring up to 0.2 cm. 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 Full code DISPOSITION: Med/surge Patient's status and plan discussed with the patient. Case discussed with Dr. Campbell Plan discussed with: Patient Plan discussed with: Patient My Orders My Orders Orders - ARIANA SAHU Procedure Category Date Status Time Lipase LAB 08/20/25 Verified 04:00 Meropenem 500mg Ivpb PHA 08/20/25 In Process (Merrem 500mg/50ml 02:00 Date of Service: Aug 19, 2025 Billing Provider: GAL CAMPBELL MD Common Visit Codes: [id number] INP/OBS CARE(HIGH) ARIANA SAHU Aug 19, 2025 16:01
[2025-08-19] MEDS ORDERED: MEROPENEM 500MG IVPB 50 ML IV SCH (21:00)
[2025-08-20] VITALS (7 sets, daily range): BP systolic 150–178; BP diastolic 66–85; PULSE 49–65; RESP 16–19; TEMP 98.1–98.9; O2SAT 92–98
[2025-08-20] MEDS ORDERED: MEROPENEM 500MG IVPB 50 ML IV SCH (01:00)
[2025-08-20] MEDS: MEROPENEM 500MG IVPB 50 ML IV SCH (01:57)
[2025-08-20 07:18] LABS: Hematocrit 28.2 % (36.0-46.0); Hemoglobin 9.2 g/dL (12.2-16.2); Mean Corpuscular Hemoglobin 29.2 pg (28.0-32.0); Mean Corpuscular Volume 89.3 fL (80.0-100.0); Nucleated Red Blood Cells % 0.0 %
[2025-08-20 07:25] LABS: Alanine Aminotransferase 154 U/L (7-40); Albumin 3.7 g/dL (3.2-4.8); Alkaline Phosphatase 187 U/L (46-116); Anion Gap 15 (5-15); BUN/Creatinine Ratio 22.6 (10.0-20.0); Bilirubin, Total 1.3 mg/dL (0.2-1.0); Blood Urea Nitrogen 24 mg/dL (9-23); Calcium 8.6 mg/dL (8.7-10.4); Carbon Dioxide 19 mmol/L (20-31); Chloride 111 mmol/L (98-107); Glucose 87 mg/dL (74-106); Potassium 3.8 mmol/L (3.5-5.1); Sodium 145 mmol/L (136-145); Total Protein 6.8 g/dL (5.7-8.2)
--- NOTE | 2025-08-20 11:30 | MEDREC ---
[facility] ASP Intervention Section I [facility] ASP Intervention: Duplication of therapy (PLEASE CONSIDER D/C FLAGYL SINCE BOTH MEROPENEM AND FLAGYL COVER FOR ANAEROBE ORGANISMS (DUPLICATE) ) JOHN ODONNELL PHARMACIST Aug 20, 2025 11:30
--- NOTE | 2025-08-20 12:16 | DVHPN2 ---
Progress Note - Dictate Date Seen: Aug 20, 2025 Medical Necessity Reason Pt with a Central, PICC or Fol: No Subjective E: no major events o/n. no complaints. vital signs Vital Sign Date Time Temp Pulse Resp B/P (MAP) Pulse Ox O2 Delivery O2 Flow Rate FiO2 08/20/25 08:48 98.9 63 18 152/79 (103) 94 98.9 08/20/25 08:00 Room Air* 0 21 Total Intake and Output 08/19/25 08/19/25 08/20/25 15:00 23:00 07:00 Intake Total 100 ml 0 ml Balance 100 ml 0 ml medications Current Medications Medications Dose Ordered Sig/Jorge Route Start Time Stop Time Status Last Admin Dose Admin Ondansetron HCl 4 mg Q4HP PRN IV 08/18/25 16:15 08/19/25 14:53 4 MG Enoxaparin Sodium 30 mg DAILY SC 08/18/25 16:15 08/20/25 10:10 30 MG Hydromorphone HCl 0.25 mg Q6HP PRN IV 08/18/25 16:30 08/19/25 06:44 0.25 MG Insulin Glargine 6 units HS SC 08/18/25 16:30 08/19/25 21:20 6 UNITS Diagnostic Test (Pha) 1 strip Q6HR 08/18/25 18:00 08/20/25 05:58 1 STRIP Insulin Human Regular Q6HR SC 08/18/25 18:00 08/19/25 06:05 3 UNITS Dextrose 50 ml UD PRN IV 08/18/25 16:30 Famotidine 20 mg DAILY IV 08/19/25 10:00 08/20/25 10:10 20 MG Lactated Ringer's 1,000 ml @ 100 mls/hr Q10H IV 08/18/25 17:30 08/20/25 04:28 100 MLS/HR Metronidazole 100 ml @ 100 mls/hr Q8HR IV 08/18/25 22:00 08/20/25 05:57 100 MLS/HR Ursodiol 300 mg BID PO 08/18/25 22:00 Meropenem 50 ml @ 16.667 mls/ hr Q12HR IV 08/20/25 02:00 08/20/25 10:10 16.667 MLS/HR objective GEN: NAD ABD: min epigastric TTP w/o G/R. improved. laboratory and microbiology Laboratory Tests 08/20/25 04:44 Test 08/20/25 04:44 Range/Units Serum Glucose 87 74-106 mg/dL Assessment/Plan A: 1. Acute cholecystitis 2. Gallstone pancreatitis improving. P: 1. family does not want surgery. cont conservative tx. MRCP pending. Plan discussed with: Patient, Daughter GREGKEYAMalvin Acuña MD Aug 20, 2025 12:16
--- NOTE | 2025-08-20 13:31 | DVH ---
EXAM: MRI MRCP MRI HISTORY: obstruction COMPARISON: US ABDOMEN COMPLETE SONOGRAM on DOS: 08/18/25 TECHNIQUE: Multiplanar, multisequence imaging of the abdomen was performed without contrast. FINDINGS: [LOWER CHEST]: Small right and trace left pleural effusions. [LIVER]: The liver is normal in size without focal lesions. Normal liver contour. [SPLEEN]: Unremarkable. [PANCREAS]: The pancreas is normal in appearance without focal lesions. Normal pancreatic duct size. [GALLBLADDER AND DUCTS]: Layering cholelithiasis. No choledocholithiasis trace pericholecystic edema. Slight gallbladder distention. [ADRENAL GLANDS]: Unremarkable. [KIDNEYS]: Benign-appearing cysts of the kidneys [VISUALIZED BOWEL]: Distal transverse to descending colonic diverticulosis [VASCULATURE]: Unremarkable. [LYMPHADENOPATHY]: No evidence for lymphadenopathy. [ASCITES]: Trace perihepatic ascites. [MUSCULOSKELETAL]: Bone marrow signal is normal. 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 No MRCP evidence of choledocholithiasis. Normal distal common bile duct tapering. 2. Layering cholelithiasis with trace pericholecystic edema and gallbladder distention 3. Trace perihepatic ascites
[2025-08-20 15:06] LABS: COVID19 ANTIGEN SOFIA FIA NEGATIVE (NEGATIVE)
--- NOTE | 2025-08-20 15:34 | DVHPNRES ---
Progress Note Date Seen: Aug 20, 2025 Resident Creating Document: JORDEN DARDEN RESIDENT Medical Necessity Reason Pt with a Central, PICC or Fol: No Subjective Review of Systems History of present illness: This is an 89-year-old female with past medical history of Insulin-dependent diabetes, hypertension, chronic pancreatitis, recurrent UTI, she presented to the ER with chief complain of epigastric pain described as pressure-like, dull, 9/10, nonradiating, increases with inspiration, associated with nausea, vomiting and headache. She reports 2 episodes of vomiting with food content, no blood seen. In May 2025, she was admitted for acute on chronic pancreatitis but denied surgical modalities. She denies constipation, diarrhea, fever, chills, shortness of breath, burning micturition. Previous hospitalization: In May 2025 for acute pancreatitis sepsis secondary to UTI PMHx: Insulin-dependent diabetes, hypertension, chronic pancreatitis, recurrent UTI PSHx: No significant surgical history Social history: Denies smoking, alcohol, recreational drug use. Full code, next to kin is daughter Home medication: glimepiride, losartan, nifedipine Allergic history: Denies allergies ROS: Constitutional: Denies weight loss, fever and chills. HEENT: Denies changes in vision and hearing. Respiratory: Denies shortness of breath and cough Cardiovascular: Denies chest discomfort or palpitations GI: Abdominal pain, nausea, vomiting. : Denies dysuria and urinary frequency. Musculoskeletal: Denies myalgias and joint pain Skin: Denies rash and pruritus. Neurological: Denies dizziness, headache, vision or hearing problems 08/20/2025: Patient was examined at bedside today. Patient and family agreed to MRCP, HIDA pending. Blood culture growing Gram-negative rods, another set of cultures ordered, continue IV antibiotics. Objective vital signs Vital Sign Date Time Temp Pulse Resp B/P (MAP) Pulse Ox O2 Delivery O2 Flow Rate FiO2 08/20/25 12:40 98.2 65 19 161/85 (110) 93 98.2 08/20/25 08:00 Room Air* 0 21 Total Intake and Output 08/19/25 08/19/25 08/20/25 15:00 23:00 07:00 Intake Total 100 ml 0 ml Balance 100 ml 0 ml medications Current Medications Medications Dose Ordered Sig/Jorge Route Start Time Stop Time Status Last Admin Dose Admin Ondansetron HCl 4 mg Q4HP PRN IV 08/18/25 16:15 08/19/25 14:53 4 MG Enoxaparin Sodium 30 mg DAILY SC 08/18/25 16:15 08/20/25 10:10 30 MG Hydromorphone HCl 0.25 mg Q6HP PRN IV 08/18/25 16:30 08/19/25 06:44 0.25 MG Insulin Glargine 6 units HS SC 08/18/25 16:30 08/19/25 21:20 6 UNITS Diagnostic Test (Pha) 1 strip Q6HR 08/18/25 18:00 08/20/25 05:58 1 STRIP Insulin Human Regular Q6HR SC 08/18/25 18:00 08/19/25 06:05 3 UNITS Dextrose 50 ml UD PRN IV 08/18/25 16:30 Famotidine 20 mg DAILY IV 08/19/25 10:00 08/20/25 10:10 20 MG Lactated Ringer's 1,000 ml @ 100 mls/hr Q10H IV 08/18/25 17:30 08/20/25 04:28 100 MLS/HR Metronidazole 100 ml @ 100 mls/hr Q8HR IV 08/18/25 22:00 08/20/25 05:57 100 MLS/HR Ursodiol 300 mg BID PO 08/18/25 22:00 Meropenem 50 ml @ 16.667 mls/ hr Q12HR IV 08/20/25 02:00 08/20/25 10:10 16.667 MLS/HR Examination General: Patient alert and oriented in person, place and time. Patient following commands. HEENT: Normocephalic, atraumatic, moist mucous membranes Respiratory/pulmonary: Clear lungs bilaterally, vesicular murmurs present in almost all lung slater, no associated crackles or wheezes. Cardiovascular: Normal heart sounds S1 and S2 with no associated murmurs Abdomen: Minimal abdominal tenderness on palpation. Extremities: There is no peripheral edema present at the lower extremities. Peripheral Pulses: 3+ Radial (R). 3+ Radial (L). 3+ Dorsalis pedis (R). 3+ Dorsalis pedis(L) Skin: No rashes or pruritus, there is no sacral edema present at this time. Neurological: Intact cranial nerves with no focal neurologic deficits laboratory and microbiology Laboratory Tests 08/20/25 04:44 Test 08/20/25 04:44 Range/Units Serum Glucose 87 74-106 mg/dL Microbiology Date/Time Source Procedure Growth Status 08/18/25 13:06 Blood Blood Culture - Preliminary Resulted Problem List/Assessment/Plan Problem List/Assessment/Plan Bacteremia with Gram-negative rods, due to below Acute pancreatitis with a previous history of chronic pancreatitis Transaminitis Cholecystitis IV RL maintenance Ursodeoxycholic acid Liver enzymes trending down Surgery on board, family opted out of surgical modalities HIDA scan pending Another set of blood cultures ordered Acute cholangitis, ruled out Continue NPO IV meropenem No MRCP evidence of choledocholithiasis UTI Continue IV antibiotics (meropenem) Urine culture ordered Normocytic normochromic anemia, unspecified 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 Full code DISPOSITION: Telemetry Patient's status and plan discussed with the patient. Case discussed with Dr. Campbell Plan discussed with: Patient, Other (Nurses) My Orders My Orders Orders - JORDEN DARDEN RESIDENT Procedure Category Date Status Time Urine Bacterial TANIA 08/20/25 Logged Culture 07:10 Blood Culture TANIA 08/20/25 In Process 07:15 Date of Service: Aug 20, 2025 Billing Provider: GAL CAMPBELL MD Common Visit Codes: [id number] INP/OBS CARE(HIGH) JORDEN DARDEN RESIDENT Aug 20, 2025 15:34
[2025-08-21] VITALS (8 sets, daily range): BP systolic 120–188; BP diastolic 47–83; PULSE 56–99; RESP 14–18; TEMP 97.2–98.1; O2SAT 94–98
[2025-08-21] MEDS: hydrALAZINE HCL 20 MG/ML VL IV ONE (04:40)
[2025-08-21 06:28] LABS: Hematocrit 28.6 % (36.0-46.0); Hemoglobin 9.8 g/dL (12.2-16.2); Mean Corpuscular Hemoglobin 29.9 pg (28.0-32.0); Mean Corpuscular Volume 87.4 fL (80.0-100.0); Nucleated Red Blood Cells % 0.0 %
[2025-08-21 06:52] LABS: Anion Gap 13 (5-15); BUN/Creatinine Ratio 27.4 (10.0-20.0); Blood Urea Nitrogen 23 mg/dL (9-23); Calcium 8.9 mg/dL (8.7-10.4); Carbon Dioxide 21 mmol/L (20-31); Potassium 3.6 mmol/L (3.5-5.1); Sodium 142 mmol/L (136-145); Total Protein 6.7 g/dL (5.7-8.2)
[2025-08-21 06:53] LABS: Albumin 3.6 g/dL (3.2-4.8)
[2025-08-21 06:54] LABS: Bilirubin, Total 1.0 mg/dL (0.2-1.0)
[2025-08-21 07:06] LABS: Alanine Aminotransferase 105 U/L (7-40); Alkaline Phosphatase 230 U/L (46-116); Chloride 108 mmol/L (98-107); Glucose 67 mg/dL (74-106)
--- NOTE | 2025-08-21 10:35 | DVH ---
Procedure: NM NM HIDA SCAN Exam Date: 08/21/2025 08:32 AM Clinical History: abd pain Comparison Study: None Nuclear Medicine Hepatobiliary Scan. Technique: Following the intravenous administration of 6 mCi of technetium 99m labeled Choletec multiple planar abdominal planar images were obtained in anterior projection in 5 minute intervals for45 minutes . Ri ght lateral images were obtained at 45 minutes after injection. Findings: The liver appears grossly normal in size. There is no abnormal persistence of the cardiac or blood po ol activity. There is prompt visualization of the gallbladder and excretion of activity into the smal l bowel. Impression: Unremarkable hepatobiliary study without evidence of acute cholecystitis.
--- NOTE | 2025-08-21 14:07 | DVHPNRES ---
Progress Note Date Seen: Aug 21, 2025 Resident Creating Document: JORDEN DARDEN RESIDENT Medical Necessity Reason Pt with a Central, PICC or Fol: No Subjective Review of Systems History of present illness: This is an 89-year-old female with past medical history of Insulin-dependent diabetes, hypertension, chronic pancreatitis, recurrent UTI, she presented to the ER with chief complain of epigastric pain described as pressure-like, dull, 9/10, nonradiating, increases with inspiration, associated with nausea, vomiting and headache. She reports 2 episodes of vomiting with food content, no blood seen. In May 2025, she was admitted for acute on chronic pancreatitis but denied surgical modalities. She denies constipation, diarrhea, fever, chills, shortness of breath, burning micturition. Previous hospitalization: In May 2025 for acute pancreatitis sepsis secondary to UTI PMHx: Insulin-dependent diabetes, hypertension, chronic pancreatitis, recurrent UTI PSHx: No significant surgical history Social history: Denies smoking, alcohol, recreational drug use. Full code, next to kin is daughter Home medication: glimepiride, losartan, nifedipine Allergic history: Denies allergies ROS: Constitutional: Denies weight loss, fever and chills. HEENT: Denies changes in vision and hearing. Respiratory: Denies shortness of breath and cough Cardiovascular: Denies chest discomfort or palpitations GI: Abdominal pain, nausea, vomiting. : Denies dysuria and urinary frequency. Musculoskeletal: Denies myalgias and joint pain Skin: Denies rash and pruritus. Neurological: Denies dizziness, headache, vision or hearing problems 08/20/2025: Patient and family agreed to MRCP, HIDA pending. Blood culture growing Gram-negative rods, another set of cultures ordered, continue IV antibiotics. 08/21/2025: Patient was examined at bedside today. Patient underwent HIDA scan today, no cholecystitis seen. Patient switched from NPO to oral diet. Objective vital signs Vital Sign Date Time Temp Pulse Resp B/P (MAP) Pulse Ox O2 Delivery O2 Flow Rate FiO2 08/21/25 12:57 97.2 65 16 151/49 (83) 97 97.2 08/21/25 08:00 Room Air* 0 21 Total Intake and Output 08/20/25 08/20/25 08/21/25 15:00 23:00 07:00 Intake Total 0 ml 550 ml Output Total 400 ml Balance 0 ml 150 ml medications Current Medications Medications Dose Ordered Sig/Jorge Route Start Time Stop Time Status Last Admin Dose Admin Ondansetron HCl 4 mg Q4HP PRN IV 08/18/25 16:15 08/19/25 14:53 Enoxaparin Sodium 30 mg DAILY SC 08/18/25 16:15 08/21/25 10:00 Hydromorphone HCl 0.25 mg Q6HP PRN IV 08/18/25 16:30 08/19/25 06:44 Diagnostic Test (Pha) 1 strip Q6HR 08/18/25 18:00 08/21/25 05:36 Insulin Human Regular Q6HR SC 08/18/25 18:00 08/19/25 06:05 Dextrose 50 ml UD PRN IV 08/18/25 16:30 Famotidine 20 mg DAILY IV 08/19/25 10:00 08/21/25 10:00 Lactated Ringer's 1,000 ml @ 100 mls/hr Q10H IV 08/18/25 17:30 08/20/25 04:28 Metronidazole 100 ml @ 100 mls/hr Q8HR IV 08/18/25 22:00 08/21/25 05:36 Ursodiol 300 mg BID PO 08/18/25 22:00 08/21/25 10:00 Meropenem 50 ml @ 16.667 mls/ hr Q12HR IV 08/20/25 02:00 08/21/25 10:00 Nifedipine 30 mg DAILY PO 08/21/25 10:00 08/21/25 10:00 Examination General: Patient alert and oriented in person, place and time. Patient following commands. HEENT: Normocephalic, atraumatic, moist mucous membranes Respiratory/pulmonary: Clear lungs bilaterally, vesicular murmurs present in almost all lung slater, no associated crackles or wheezes. Cardiovascular: Normal heart sounds S1 and S2 with no associated murmurs Abdomen: Soft abdomen without any masses. Extremities: There is no peripheral edema present at the lower extremities. Peripheral Pulses: 3+ Radial (R). 3+ Radial (L). 3+ Dorsalis pedis (R). 3+ Dorsalis pedis(L) Skin: No rashes or pruritus, there is no sacral edema present at this time. Neurological: Intact cranial nerves with no focal neurologic deficits laboratory and microbiology Laboratory Tests 08/21/25 05:22 Test 08/21/25 05:22 Range/Units Serum Glucose 67 L 74-106 mg/dL Microbiology Date/Time Source Procedure Growth Status 08/20/25 10:58 Blood Blood Culture - Preliminary NO GROWTH AFTER 24 HOURS OF INCUBATION. Resulted Problem List/Assessment/Plan Problem List/Assessment/Plan Bacteremia with Gram-negative rods, due to below Acute pancreatitis with a previous history of chronic pancreatitis Transaminitis Cholecystitis IV RL maintenance Ursodeoxycholic acid Liver enzymes trending down Surgery on board, family opted out of surgical modalities HIDA scan shows no cholecystitis Cultures growing E coli, sensitive to meropenem. Another set of blood cultures ordered Switch IV meropenem to IV ceftriaxone, based on sensitivity report. 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 Full code DISPOSITION: Telemetry Patient's status and plan discussed with the patient. Case discussed with Dr. Campbell Plan discussed with: Patient, Other (Nurses) My Orders My Orders Orders - JORDEN DARDEN Procedure Category Date Status Time Mechanical Soft Diet DIET 08/21/25 Transmitted Lunch Date of Service: Aug 21, 2025 Billing Provider: GAL CAMPBELL MD Common Visit Codes: [id number] INP/OBS CARE(HIGH) JORDEN DARDEN RESIDENT Aug 21, 2025 14:07
[2025-08-22 01:00] VITALS: BP 115/60; PULSE 82; RESP 14; TEMP 98; O2SAT 97
[2025-08-22 05:00] VITALS: BP 121/68; PULSE 97; RESP 16; TEMP 98; O2SAT 97
[2025-08-22 07:15] LABS: Hematocrit 30.2 % (36.0-46.0); Hemoglobin 10.2 g/dL (12.2-16.2); Mean Corpuscular Hemoglobin 29.7 pg (28.0-32.0); Mean Corpuscular Volume 87.4 fL (80.0-100.0); Nucleated Red Blood Cells % 0.1 %
[2025-08-22 07:27] LABS: Albumin 3.7 g/dL (3.2-4.8); Anion Gap 13 (5-15); BUN/Creatinine Ratio 21.0 (10.0-20.0); Bilirubin, Total 0.6 mg/dL (0.2-1.0); Blood Urea Nitrogen 21 mg/dL (9-23); Carbon Dioxide 21 mmol/L (20-31); Sodium 141 mmol/L (136-145); Total Protein 7.0 g/dL (5.7-8.2)
[2025-08-22 07:33] LABS: Alanine Aminotransferase 77 U/L (7-40); Alkaline Phosphatase 234 U/L (46-116); Calcium 8.6 mg/dL (8.7-10.4); Chloride 107 mmol/L (98-107); Glucose 62 mg/dL (74-106); Potassium 3.4 mmol/L (3.5-5.1)
[2025-08-22 08:00] VITALS: PULSE 106
[2025-08-22] MEDS: POTASSIUM EFFERVESENT TAB 25 MEQ PO ONE (08:00)
[2025-08-22 09:00] VITALS: BP 133/73; PULSE 105; RESP 17; TEMP 98.2; O2SAT 98
--- NOTE | 2025-08-22 10:24 | DVHDSRES ---
Discharge Summary Date of Admission Resident Creating Document: JORDEN DARDEN RESIDENT Aug 18, 2025 at 16:06 Date of Discharge: Aug 22, 2025 Labs/Diagnostic Data: Laboratory Results Test 08/22/25 05:01 08/22/25 05:00 08/20/25 14:20 08/20/25 10:30 White Blood Count 9.6 10^3/uL (4.4-10.8) Red Blood Count 3.45 10^6/uL (4.0-5.20) Hemoglobin 10.2 g/dL (12.2-16.2) Hematocrit 30.2 % (36.0-46.0) Mean Corpuscular Volume 87.4 fL (80.0-100.0) Mean Corpuscular Hemoglobin 29.7 pg (28.0-32.0) Mean Corpuscular Hemoglobin Concent 33.9 g/dL (32.0-36.0) Red Cell Distribution Width 14.5 % (11.8-14.3) Platelet Count 222 10^3/uL (140-450) Mean Platelet Volume 11.1 fL (6.9-10.8) Neutrophils (%) (Auto) 57.7 % (37.0-80.0) Lymphocytes (%) (Auto) 27.4 % (10.0-50.0) Monocytes (%) (Auto) 12.7 % (0.0-12.0) Eosinophils (%) (Auto) 1.5 % (0.0-7.0) Basophils (%) (Auto) 0.7 % (0.0-2.0) Neutrophils # (Auto) 5.5 10 ^3/uL (1.6-8.6) Lymphocytes # (Auto) 2.6 10 ^3/uL (0.4-5.4) Monocytes # (Auto) 1.2 10 ^3/uL (0-1.3) Eosinophils # (Auto) 0.1 10 ^3/uL (0-0.8) Basophils # (Auto) 0.1 10 ^3/uL (0-0.2) Nucleated Red Blood Cells 0.1 % Sodium Level 141 mmol/L (136-145) Potassium Level 3.4 mmol/L (3.5-5.1) Chloride Level 107 mmol/L (98-107) Carbon Dioxide Level 21 mmol/L (20-31) Anion Gap 13 (5-15) Blood Urea Nitrogen 21 mg/dL (9-23) Creatinine 1.00 mg/dL (0.550-1.02) Glomerular Filtration Rate Calc 54 mL/min (>90) BUN/Creatinine Ratio 21.0 (10.0-20.0) Serum Glucose 62 mg/dL (74-106) Calcium Level 8.6 mg/dL (8.7-10.4) Total Bilirubin 0.6 mg/dL (0.2-1.0) Aspartate Amino Transferase (AST) 48 U/L (13-40) Alanine Aminotransferase (ALT) 77 U/L (7-40) Alkaline Phosphatase 234 U/L (46-116) Total Protein 7.0 g/dL (5.7-8.2) Albumin 3.7 g/dL (3.2-4.8) Lipase 384 U/L (12-53) POC Glucose 68 mg/dl (70-106) SARS-CoV-2 Antigen (Rapid) Negative (NEGATIVE) Influenza Type A Antigen Negative (Negative) Influenza Type B Antigen Negative (Negative) Test 08/19/25 14:30 08/18/25 23:55 08/18/25 13:06 Prothrombin Time 11.7 sec (9.3-11.8) Prothrombin Time INR 1.12 (0.9-1.15) Urine Color Yellow (Yellow) Urine Clarity Turbid (Clear) Urine pH 8.0 (5.0-9.0) Urine Specific [place] 1.014 (1.001-1.035) Urine Protein 1+ (Negative) Urine Ketones Negative (Negative) Urine Blood 2+ /uL (Negative) Urine Nitrite Negative (Negative) Urine Bilirubin Negative (Negative) Urine Urobilinogen 2 mg/dL (Negative) Urine Leukocyte Esterase 2+ /uL (Negative) Urine RBC 290 /hpf (0 - 4) Urine Microscopic WBC 72 /HPF (0-5) Urine Squamous Epithelial Cells Few /hpf (<5) Urine Bacteria None seen /hpf (None Seen) Urine Glucose 3+ mg/dL (Normal) Urine Opiates Screen Neg (NEGATIVE) Urine Fentanyl Screen Neg (NEGATIVE) Urine Barbiturates Screen Neg (NEGATIVE) Urine Phencyclidine Screen Neg (NEGATIVE) Urine Amphetamines Screen Neg (NEGATIVE) Urine Benzodiazepines Screen Neg (NEGATIVE) Urine Cocaine Screen Neg (NEGATIVE) Urine Cannabinoids Screen Neg (NEGATIVE) Lactic Acid Level 0.9 mmol/L (0.4-2.0) Phosphorus Level 3.2 mg/dL (2.4-5.1) Magnesium Level 1.8 mg/dL (1.6-2.6) Troponin I High Sensitivity < 3 ng/L (</=34) C-Reactive Protein High Sensitivity 0.15 mg/dL (<1.0) B-Type Natriuretic Peptide 59.49 pg/mL (0-100) Vitamin D 25-Hydroxy 30.3 ng/mL (30.0-100) Thyroid Stimulating Hormone (TSH) 3.85 uIU/mL (0.55-4.78) Other Laboratory Tests 08/22/25 05:01 Brief Hx & Hospital Course: History on admission: This is an 89-year-old female with past medical history of Insulin-dependent diabetes, hypertension, chronic pancreatitis, recurrent UTI, she presented to the ER with chief complain of epigastric pain described as pressure-like, dull, 9/10, nonradiating, increases with inspiration, associated with nausea, vomiting and headache. She reports 2 episodes of vomiting with food content, no blood seen. In May 2025, she was admitted for acute on chronic pancreatitis but denied surgical modalities. She denies constipation, diarrhea, fever, chills, shortness of breath, burning micturition. Hospital course: Started on IV fluids, pain management, NPO, Ursodeoxycholic acid and IV meropenem, metronidazole. Her urine analysis was positive for UTI. Blood Cultures growing E coli, sensitive to meropenem. Eventually, deescalated antibiotics to metronidazole & ceftraixone, based on sensitivity report. Ultrasound showed cholelithiasis with pericholecystic edema, sludge, gallbladder wall thickening, suggestive of cholecystitis. Surgery was on board, recommended cholecystectomy as source removal for chronic pancreatitis; Family opted out of surgical modalities. MRCP showed no evidence of choledocholithiasis. Another set of blood cultures ordered show no growth. Patient is now hemodynamically stable, her liver enzymes are trending down. She tolerated mechanical soft diet. She is stable for discharge. 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 Technique: Following the intravenous administration of 6 mCi of technetium 99m labeled Choletec multiple planar abdominal planar images were obtained in anterior projection in 5 minute intervals for45 minutes . Right lateral images were obtained at 45 minutes after injection. Findings: The liver appears grossly normal in size. There is no abnormal persistence of the cardiac or blood pool activity. There is prompt visualization of the gallbladder and excretion of activity into the small bowel. Impression: Unremarkable hepatobiliary study without evidence of acute cholecystitis. EXAM: MRI MRCP MRI HISTORY: obstruction COMPARISON: US ABDOMEN COMPLETE SONOGRAM on DOS: 08/18/25 TECHNIQUE: Multiplanar, multisequence imaging of the abdomen was performed without contrast. FINDINGS: [LOWER CHEST]: Small right and trace left pleural effusions. [LIVER]: The liver is normal in size without focal lesions. Normal liver contour. [SPLEEN]: Unremarkable. [PANCREAS]: The pancreas is normal in appearance without focal lesions. Normal pancreatic duct size. [GALLBLADDER AND DUCTS]: Layering cholelithiasis. No choledocholithiasis trace pericholecystic edema. Slight gallbladder distention. [ADRENAL GLANDS]: Unremarkable. [KIDNEYS]: Benign-appearing cysts of the kidneys [VISUALIZED BOWEL]: Distal transverse to descending colonic diverticulosis [VASCULATURE]: Unremarkable. [LYMPHADENOPATHY]: No evidence for lymphadenopathy. [ASCITES]: Trace perihepatic ascites. [MUSCULOSKELETAL]: Bone marrow signal is normal. 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 No MRCP evidence of choledocholithiasis. Normal distal common bile duct tapering. 2. Layering cholelithiasis with trace pericholecystic edema and gallbladder distention 3. Trace perihepatic ascites Technique: Real-time ultrasound imaging of the abdomen was performed with grayscale and color Doppler. Indication: Acute abdomen Comparison: None Findings: Liver measures 11 cm. It is increased in echogenicity and echotexture without focal mass. Portal vein is normal in caliber and demonstrates normal hepatopetal flow. Gallbladder demonstrates cholelithiasis. There is pericholecystic edema. Gallbladder wall thickened to 9 mm. There is gallbladder sludge. The gallbladder is distended. The common bile duct measures 10 mm. The right kidney measures 6.7 cm. The left kidney measures 8.8 cm. No hydronephrosis or sonographic evidence of nephrolithiasis. The bilateral kidneys are echogenic. Left renal cyst measuring 1.5 cm. The visualized portion of the pancreas is unremarkable. Spleen measures cm. The visualized portion of the IVC is unremarkable. Impression: Cholelithiasis with pericholecystic edema, sludge, gallbladder wall thickening. Findings are suggestive of cholecystitis. Recommend HIDA scan and surgical consultation. Echogenic liver which can be seen with hepatic steatosis, cirrhosis. Echogenic And small bilateral Kidneys Suggesting medical renal disease. EXAM: XY CHEST XRAY 1 VIEW Indication: CP Technique: Single frontal view of the chest was obtained Comparison: None FINDINGS: Lines and Tubes: None Lungs: No focal consolidation. Pleura: No effusion. No pneumothorax. Cardiomediastinal contours: Unremarkable. Atherosclerotic vascular calcifications of the thoracic aorta are noted. Bones: No acute osseous abnormality. IMPRESSION: No acute cardiopulmonary disease. 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) Hypertension Type 2 diabetes mellitus Simple hyperglycemia Discharge Disposition: Home Discharge Instruct/Medications Diet: Regular Activity: No Restrictions, As Tolerated Follow Up/Referral: Please follow with PCP in 1 week Follow-up with surgery in outpatient clinic Medications: As per EHR Scheduled Glimepiride (Glimepiride), 2 MG PO DAILY, (Reported) Isosorbide Dinitrate (Isosorbide Dinitrate), 5 MG PO HS, (Reported) Losartan Potassium (Losartan Potassium), 50 MG PO DAILY, (Reported) Nifedipine (Nifedipine Er), 1 TAB PO DAILY, (Reported) Discharge Statement: "Patient was advised to return to the ER or call 911 if any headaches, dizziness, shortness of breath, chest pain, abdominal pain, bleeding, fevers, or worsening of medical condition. Patient was counseled about treatment plan, medications, possible side effects, patientverbalized understanding. All questions were answered to the best of my ability. 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
[2025-08-22 11:30] VITALS: BP 133/73; PULSE 105; RESP 17; TEMP 97.3; O2SAT 98
[2025-08-22] MEDS ORDERED: CEFD300C2 PO (13:48)
[2025-08-22] MEDS ORDERED: URSO250T2 PO (13:48)
== END 2025-08-22 12:40 | disposition home or self-care (01) | DRG 282 ==
LOC: ER 11:54 → OVERFLOW 16:06 → WEST WING 17:33 → TELE-WESTW 08-19 14:20
PROVIDERS: ADMIT Internal Medicine Geriatric Medicine; ATTEND Internal Medicine Geriatric Medicine
DX: K85.90 Acute pancreatitis without necrosis or infection, unspecified (principal); N17.0 Acute kidney failure with tubular necrosis; R78.81 Bacteremia; K81.0 Acute cholecystitis; D64.9 Anemia, unspecified; E11.22 Type 2 diabetes mellitus with diabetic chronic kidney disease; E11.649 Type 2 diabetes mellitus with hypoglycemia without coma; E11.65 Type 2 diabetes mellitus with hyperglycemia; Z20.822 Contact with and (suspected) exposure to COVID-19; N39.0 Urinary tract infection, site not specified; K86.1 Other chronic pancreatitis; R74.01 Elevation of levels of liver transaminase levels; R74.8 Abnormal levels of other serum enzymes; I12.9 Hypertensive chronic kidney disease with stage 1 through stage 4 chronic kidney disease, or unspecified chronic kidney disease; N18.32 Chronic kidney disease, stage 3b; Z79.4 Long term (current) use of insulin; Z82.49 Family history of ischemic heart disease and other diseases of the circulatory system; Z79.899 Other long term (current) drug therapy
CPT/HCPCS: 36415; 71045; 74181; 76700; 78226; 80053; 80307; 81001; 82306; 82310; 82962; 83605; 83690; 83735; 83880; 84100; 84132; 84443; 84484; 85025; 85610; 86141; 87040; 87077; 87186; 87426; 87804; 93005; 93306; 96361; 96374; 96375; G0378; J1815; J2185; J2405; J3490

== ENCOUNTER 2025-10-07 19:00 | Inpatient (IN) | payer MEDICAID ==
[~2025-10-07] VITALS: Ht 149.9 cm; Wt 48.1 kg
[~2025-10-07 19:00] MED LIST changes: +CEFD300C2 PO; +URSO250T2 PO
[2025-10-07 19:52] LABS: Hematocrit 31.6 % (36.0-46.0); Hemoglobin 10.4 g/dL (12.2-16.2); Mean Corpuscular Hemoglobin 29.4 pg (28.0-32.0); Mean Corpuscular Volume 89.7 fL (80.0-100.0); Nucleated Red Blood Cells % 0.1 %
[2025-10-07 19:55] LABS: Albumin 4.3 g/dL (3.2-4.8); Anion Gap 12 (5-15); BUN/Creatinine Ratio 20.7 (10.0-20.0); Bilirubin, Total 0.8 mg/dL (0.2-1.0); Calcium 9.0 mg/dL (8.7-10.4); Chloride 101 mmol/L (98-107); Potassium 4.2 mmol/L (3.5-5.1); Total Protein 7.7 g/dL (5.7-8.2)
[2025-10-07 19:57] LABS: Sodium 133 mmol/L (136-145)
[2025-10-07 20:02] LABS: Alanine Aminotransferase 69 U/L (7-40); Alkaline Phosphatase 183 U/L (46-116); Amylase 823 U/L (30-118); Blood Urea Nitrogen 24 mg/dL (9-23); Carbon Dioxide 20 mmol/L (20-31)
[2025-10-07 20:04] LABS: Glucose 456 mg/dL (74-106); Lipase 1844 U/L (12-53)
--- NOTE | 2025-10-07 20:08 | ED.PDOC ---
HPI Comments 89-year-old female who came to ER for chest pains/vomiting. Patient has history of hypertension, diabetes, pancreatitis. With a past few hours, she has been experiencing midsternal chest pains, radiating to her upper back, associated shortness of breath, nausea and vomiting. Blood sugar upon arrival was 456. Chief Complaint: Chest pain Time Seen by MD: 20:08 Reviewed Notes: Nurses Notes Allergies: Coded Allergies: NO KNOWN ALLERGIES (Unverified , 06/02/25) Home Meds Active Scripts Ursodiol (Endy 250) 250 Mg Tab, 250 MG PO TID for 30 Days, #90 TAB Prov:[facility] 09/05/25 Cefdinir (Cefdinir) 300 Mg Cap, 1 CAP PO BID for 10 Days, #20 CAP [facility] Ursodiol (Endy 250) 250 Mg Tab, 250 MG PO TID for 30 Days, #90 TAB [facility] 08/22/25 Cefdinir (Cefdinir) 300 Mg Cap, 1 CAP PO BID for 10 Days, #20 CAP Prov:DAYANA,[facility] 08/22/25 Reported Medications Nifedipine (Nifedipine Er) 30 Mg Tab, 1 TAB PO DAILY, #90 TAB 1 Refill 06/04/25 Losartan Potassium (Losartan Potassium) 50 Mg Tab, 50 MG PO DAILY for 30 Days, MG 06/04/25 Isosorbide Dinitrate (Isosorbide Dinitrate) 5 Mg Tab, 5 MG PO HS for 30 Days, MG 06/03/25 Glimepiride (Glimepiride) 2 Mg Tab, 2 MG PO DAILY for 30 Days, MG 06/03/25 Information Source: Patient, Relative (GrandChild) Mode of Arrival: Ambulatory Past Medical History PAST MEDICAL HISTORY: DM, HTN, UTI'S Past Medical History (Other): Pancreatitis Surgical History: Denies all surgeries DISEASE CONTROL INSPECTOR History: Denies all DISEASE CONTROL INSPECTOR Hx Family History Family History: Reviewed,noncontributory to illness Social History Smoker: Non-Smoker Alcohol: Denies ETOH Use Drugs: Denies Drug Use Lives In: Home Constitutional: denies: chills, diaphoresis, fatigue, fever, malaise, sweats, weakness, others EENTM: denies: blurred vision, double vision, ear bleeding, ear discharge, ear drainage, ear pain, ear ringing, eye pain, eye redness, hearing loss, mouth pain, mouth swelling, nasal discharge, nose bleeding, nose congestion, nose pain, photophobia, tearing, throat pain, throat swelling, voice changes, others Respiratory: denies: cough, hemoptysis, orthopnea, SOB at rest, shortness of breath, SOB with excertion, stridor, wheezing, others Cardiovascular: reports: chest pain; denies: dizzy spells, diaphoresis, Dyspnea on exertion, edema, irregular heart beat, left arm pain, lightheadedness, palpitations, PND, syncope, others Gastrointestinal: reports: nausea, vomiting; denies: abdomen distended, abdominal pain, blood streaked bowels, constipated, diarrhea, dysphagia, difficulty swallowing, hematemesis, melena, poor appetite, poor fluid intake, rectal bleeding, rectal pain, others Genitourinary: denies: abnormal vagina bleeding, burning, dyspareunia, dysuria, flank pain, frequency, hematuria, incontinence, pain, , vagina discharge, urgency, others Neurological: denies: dizziness, fainting, headache, left sided numbness, left sided weakness, numbness, paresthesia, pre-existing deficit, right sided numbness, right sided weakness, seizure, speech problems, tingling, tremors, weakness, others Musculoskeletal: reports: back pain; denies: gout, joint pain, joint swelling, muscle pain, muscle stiffness, neck pain, others Integumetry: denies: bruises, change in color, change in hair/nails, dryness, laceration, lesions, lumps, rash, wounds, others Allergic/Immunocompromised: denies: Difficulty Healing, Frequent Infections, Hives, Itching, others Hematologic/Lymphatic: denies: anemia, blood clots, easy bleeding, easy bruising, swollen glands, others Endocrine: denies: excessive hunger, excessive sweating, excessive thirst, excessive urination, flushing, intolerance to cold, intolerance to heat, unexplained weight gain, unexplained weight loss, others Psychiatric: denies: anxiety, bipolar disorder, depression, hopeless, panic disorder, schizophrenia, sleepless, suicidal, others Physical Exam General Appearance: No Apparent Distress, Normal HEENT: Normal ENT Inspection, Pharynx Normal, TMs Normal Neck: Full Range of Motion, Non-Tender, Normal, Normal Inspection Respiratory: Chest Non-Tender, Lungs Clear, No Accessory Muscle Use, No Respiratory Distress, Normal Breath Sounds Cardiovascular: No Edema, No JVD, No Murmur, No Gallop, Normal Peripheral Pulses, Regular Rate/Rhythm Breast Exam: Deferred Gastrointestinal: No Organomegaly, Non Tender, No Pulsatile Mass, Normal Bowel Sounds, Soft Genitalia: Deferred Pelvic: Deferred Rectal: Deferred Extremities: No calf tenderness, Normal capillary refill, Normal inspection, Normal range of motion, Non-tender, No pedal edema Musculoskeletal : Apperance: Normal Neurologic: Alert, repairer maintenance building II-XII nml as Tested, No Motor Deficits, Normal Affect, Normal Mood, No Sensory Deficits Cerebellar Function: Normal Reflexes: Normal Skin: Dry, Normal Color, Warm Lymphatic: No Adenopathy Was a procedure done? Was a procedure done?: No CP Differential Dx Differential Diagnosis: Angina, Anxiety / Panic Attack Differential Diagnosis: Angina, Chest Wall Pain, Costochondritis, Esophageal reflux/spasm, Gastritis, Myocardial Infarction X-Ray, Labs, Meds, VS Vital Signs Date Time Temp Pulse Resp B/P (MAP) Pulse Ox O2 Delivery O2 Flow Rate FiO2 10/07/25 20:44 98.4 93 18 112/51 (71) 98 98.4 10/07/25 19:13 114 10/07/25 19:02 98.6 113 18 143/66 99 98.6 Lab Test 10/07/25 20:20 10/07/25 20:05 10/07/25 19:26 Range/Units Troponin I High Sensitivity 3 L < 3 L </=34 ng/L Lactic Acid Level 2.0 0.4-2.0 mmol/L White Blood Count 14.1 H 4.4-10.8 10^3/uL Red Blood Count 3.52 L 4.0-5.20 10^6/uL Hemoglobin 10.4 L 12.2-16.2 g/dL Hematocrit 31.6 L 36.0-46.0 % Mean Corpuscular Volume 89.7 80.0-100.0 fL Mean Corpuscular Hemoglobin 29.4 28.0-32.0 pg Mean Corpuscular Hemoglobin Concent 32.8 32.0-36.0 g/dL Red Cell Distribution Width 14.7 H 11.8-14.3 % Platelet Count 272 140-450 10^3/uL Mean Platelet Volume 11.1 H 6.9-10.8 fL Neutrophils (%) (Auto) 80.2 H 37.0-80.0 % Lymphocytes (%) (Auto) 10.1 10.0-50.0 % Monocytes (%) (Auto) 9.1 0.0-12.0 % Eosinophils (%) (Auto) 0.2 0.0-7.0 % Basophils (%) (Auto) 0.4 0.0-2.0 % Neutrophils # (Auto) 11.3 H 1.6-8.6 10 ^3/uL Lymphocytes # (Auto) 1.4 0.4-5.4 10 ^3/uL Monocytes # (Auto) 1.3 0-1.3 10 ^3/uL Eosinophils # (Auto) 0 0-0.8 10 ^3/uL Basophils # (Auto) 0 0-0.2 10 ^3/uL Nucleated Red Blood Cells 0.1 % Prothrombin Time 11.3 9.3-11.8 sec Prothrombin Time INR 1.07 0.9-1.15 Activated Partial Thromboplast Time 32.0 24.5-34.5 SEC D-Dimer, Quantitative 1.57 H 0.0-0.49 mg/L FEU Sodium Level 133 L 136-145 mmol/L Potassium Level 4.2 3.5-5.1 mmol/L Chloride Level 101 98-107 mmol/L Carbon Dioxide Level 20 20-31 mmol/L Anion Gap 12 5-15 Blood Urea Nitrogen 24 H 9-23 mg/dL Creatinine 1.16 H 0.550-1.02 mg/dL Glomerular Filtration Rate Calc 45 >90 mL/min BUN/Creatinine Ratio 20.7 H 10.0-20.0 Serum Glucose 456 *H 74-106 mg/dL Calcium Level 9.0 8.7-10.4 mg/dL Total Bilirubin 0.8 0.2-1.0 mg/dL Aspartate Amino Transferase (AST) 131 H 13-40 U/L Alanine Aminotransferase (ALT) 69 H 7-40 U/L Alkaline Phosphatase 183 H 46-116 U/L B-Type Natriuretic Peptide 218.94 0-100 pg/mL Total Protein 7.7 5.7-8.2 g/dL Albumin 4.3 3.2-4.8 g/dL Amylase Level 823 H 30-118 U/L Lipase 1844 H 12-53 U/L Current Medications Medications (Trade) Dose Ordered Sig/Jorge Route Start Time Stop Time Status Last Admin Ondansetron HCl (Zofran) 4 mg ONCE ONCE IV 10/07/25 20:00 10/07/25 20:01 DC 10/07/25 20:35 Aspirin 325 mg ONCE ONCE PO 10/07/25 20:00 10/07/25 20:01 DC 10/07/25 20:35 Sodium Chloride 1,000 ml @ 1,000 mls/hr Q1H ONCE IV 10/07/25 20:30 10/07/25 21:29 DC 10/07/25 20:36 Ceftriaxone Sodium 50 ml @ 100 mls/hr ONCE ONCE IV 10/07/25 20:30 10/07/25 20:59 DC 10/07/25 20:35 Time of 1ST Reevaluation: 20:00 Reevaluation 1ST: Unchanged Patient Education/Counseling: Diagnosis, Treatment Family Education/Counseling: Diagnosis, Treatment SEPSIS Sepsis Screen Date sepsis recognized/suspect: Oct 07, 2025 Time Sepsis recognized/suspect: 1903 Recent Procedure: No On Antibiotic Therapy: No Respiratory Rate >20: No Heart Rate >90: Yes Temp<36 C (96.8 F) or >38.3 C: No SBP <90 or MAP <65 mmHG: No New Acute Mental Status Change: No Is the patient on CPAP, BIPAP,: No Physician Orders Electrocardigram (10/07/25 19:05) Electrocardigram (10/07/25 20:05) Electrocardigram (10/07/25 22:05) Chest Xray 1 View (10/07/25 19:52) Blood Culture (10/07/25 19:55) Urinalysis (10/07/25 20:30) Vital Signs Date Time Temp Pulse Resp B/P (MAP) Pulse Ox O2 Delivery O2 Flow Rate FiO2 10/07/25 20:44 98.4 93 18 112/51 (71) 98 98.4 10/07/25 19:13 114 10/07/25 19:02 98.6 113 18 143/66 99 98.6 Laboratory Tests Test 10/07/25 19:26 10/07/25 20:05 White Blood Count 14.1 10^3/uL (4.4-10.8) H Lactic Acid Level 2.0 mmol/L (0.4-2.0) Medications Medications Dose Ordered Sig/Jorge Route Start Time Stop Time Status Last Admin Dose Admin Aspirin 325 mg ONCE ONCE PO 10/07/25 20:00 10/07/25 20:01 DC 10/07/25 20:35 Ceftriaxone Sodium 50 ml @ 100 mls/hr ONCE ONCE IV 10/07/25 20:30 10/07/25 20:59 DC 10/07/25 20:35 Ondansetron HCl 4 mg ONCE ONCE IV 10/07/25 20:00 10/07/25 20:01 DC 10/07/25 20:35 Sodium Chloride 1,000 ml @ 1,000 mls/hr Q1H ONCE IV 10/07/25 20:30 10/07/25 21:29 DC 10/07/25 20:36 Departure 1 Departure Time of Disposition: 22:37 Impression: Primary Impression: Hyperglycemia due to diabetes mellitus Additional Impression: Pancreatitis Disposition: ADMITTED INPATIENT Admit to: Med Surg Condition: Guarded Comments 89 yo female with epigastric pain, chest pain and upper back pain. blood glucose is very elevated in the 400's . Lipase high 1800's. amylase high 800's. initial troponin normal, D-dimer elevated possible due to age or circumstance. Given IV fluids, insulin and pain meds. will need admission for supportive care and furhther workup Critical Care Note Critical Care Time?: Yes (35 min-critical care time only) Critical care comment: Total critical care time: Approximately 36 minutes Due to a high probability of clinically significant, life threatening deterioration, the patient required my highest level of preparedness to intervene emergently and I personally spent this critical care time directly and personally managing the patient. This critical care time included obtaining a history; examining the patient; pulse oximetry; ordering and review of studies; arranging urgent treatment with development of a management plan; evaluation of patient's response to treatment; frequent reassessment; and, discussions with other providers. This critical care time was performed to assess and manage the high probability of imminent, life-threatening deterioration that could result in multi-organ failure. It was exclusive of separately billable procedures and treating other patients. Stability Stability form required: No Heart Score Heart Score: Heart Score Response (Comments) Value History Moderate Suspicious 1 EKG Normal 0 Age >65 2 Risk Factors >3 or Hx ASHD 2 Troponin Normal limit 0 Total 5 I personally scribed for ACE RAUSCH MD ([email or web address]) on 10/07/25 at 20:08. Electronically submitted by Adan Lux ([facility] ACE RAUSCH MD Oct 07, 2025 20:08
[2025-10-07 20:26] LABS: INR 1.07 (0.9-1.15); Partial Thromboplastin Time 32.0 SEC (24.5-34.5); Prothrombin Time 11.3 sec (9.3-11.8)
[2025-10-07] MEDS: MORPHINE SULFATE INJ 2 MG/ml SYRG IV ONE (20:35)
[2025-10-07] MEDS: ONDANSETRON HCL 4 MG/2 ML VIAL IV ONE (20:35)
[2025-10-07] MEDS: SODIUM CHLORIDE 0.9% 1,000 ML IV ONE (20:36)
--- NOTE | 2025-10-07 22:36 | DVH ---
CLINICAL HISTORY: Chest pain. TECHNIQUE: Single frontal view of the chest was obtained. COMPARISON: XY CHEST XRAY 1 VIEW on DOS: 08/18/25. FINDINGS: Lungs: Clear. Pleura: No pneumothorax or pleural effusion. Cardiomediastinal silhouette: Normal in size. Aortic atherosclerosis. Bones: No acute osseous abnormality. Imaged Upper Abdomen: Lucency underneath the right hemidiaphragm measuring approximately 16 mm in thickness, which is nonspecific. IMPRESSION: 1. No acute cardiopulmonary process. 2. Lucency underneath the right hemidiaphragm measuring approximately 16 mm in thickness, which is nonspecific but concerning for possible intraperitoneal free gas. Recommend clinical correlation.
[2025-10-07 22:58] VITALS: PULSE 71; RESP 18; O2SAT 97
[2025-10-07] MEDS: InsuLIN REG 1unit/0.01ml Soln (100units/ml) IV ONE (23:06)
[2025-10-07] MEDS ORDERED: HYDROcodone-ACET 5/325MG TAB PO PRN (23:30)
[2025-10-07] MEDS ORDERED: ONDANSETRON HCL 4 MG/2 ML VIAL IV PRN (23:30)
[2025-10-07] MEDS ORDERED: DEXTROSE (50%) 50ML SYRG IV PRN (23:30)
[2025-10-07] MEDS ORDERED: MORPHINE SULFATE INJ 2 MG/ml SYRG IV PRN (23:30)
[2025-10-07] MEDS ORDERED: DOCUSATE SOD 100 MG CAP PO PRN (23:30)
[2025-10-07] MEDS: SODIUM CHLORIDE 0.9% 1,000 ML IV SCH (23:30)
[2025-10-07] MEDS ORDERED: NITROGLYCERIN 0.4 MG SL TAB SL PRN (23:30)
[2025-10-07] MEDS ORDERED: IBUPROFEN 600 MG TAB PO PRN (23:30)
[2025-10-07] MEDS: FAMOTIDINE (10MG/ML) 2ML VL IV ONE (23:30)
--- NOTE | 2025-10-07 23:33 | DVHHP2 ---
History of Present Illness Reason for Visit: Acute pancreatitis History of Present Illness The patient is a 89-year-old female with past medical history of UTIs, pancreatitis, diabetes mellitus, and hypertension who presented to [facility] ED with complaint of chest pain. Patient reports she has been experiencing midsternal chest pain, radiating to the upper back, associated with shortness of breaths, nausea, vomiting, getting worse that prompted this visit. Patient was seen and evaluated in the ED, laboratory data shows WBC 14.1, hemoglobin 10.4, hematocrit 31.6, platelets 272, sodium 133, potassium 4.2, BUN 24, creatinine 1.16, GFR 45, glucose 456, calcium 9.0, amylase 833, lipase 1844, BNP 218.94, AST 131, ALT 69, alkaline phos 183, troponin 3, lactic acid 2.0, D- dimer 1.57, blood pressure 114/71, heart rate 72, temperature 98.1 F, O2 saturation 97% on room air. CT chest results pending. Please see medication orders section in the computer. On my assessment, patient denied chest pain at this moment, no dizziness, headache, diaphoresis, shortness of breaths, no diar marian, nausea or vomiting at this moment, fever, no chills. Patient was admitted for further evaluation and medical management. Past Medical History DM, HTN, UTI'S, Pancreatitis Past Surgical History Denies all surgeries Family History Reviewed, noncontributory to the management of this case. Past Social History The patient lives at home, denies smoking, alcohol or illicit drugs abuse. Review of Systems Constitutional: Yes: Weakness; No: Fever, Chills, Sweats, Malaise, Other Eyes: No: Pain, Vision change, Conjunctivae inflammation, Eyelid inflammation, Other, Redness ENT: No: Ear pain, Ear discharge, Nose pain, Nose discharge, Nose congestion, Mouth pain, Mouth swelling, Throat pain, Throat swelling, Other Respiratory: No: Cough, Dry, Shortness of breath, SOB with excertion, Wheezing, Hemoptysis, Pleuritic Pain, Sputum, Wheezing, Other Cardiovascular: Chest Pain; No: Palpitations, Orthopnea, Paroxysmal Noc. Dysp yessica, Edema, Lt Headedness, Other Gastrointestinal: Nausea, Vomiting; No: Abdominal Pain, Diarrhea, Constipation, Melena, Hematochezia, Other Genitourinary: No Dysuria, No Frequency, No Incontinence, No Hematuria, No Retention, No Other Musculoskeletal: back pain; No: other, neck pain, shoulder pain, arm pain, hand pain, leg pain, foot pain Skin: No: Rash, Lesions, Jaundice, Bruising, Other Neurological: No: Weakness, Numbness, Incoordination, Change in speech, Confusion, Seizures, Other Allergies: Coded Allergies: NO KNOWN ALLERGIES (Unverified , 06/02/25) Exam Vital Signs Vital Signs Date Time Temp Pulse Resp B/P (MAP) Pulse Ox O2 Delivery O2 Flow Rate FiO2 10/07/25 22:58 98.1 71 18 114/71 (85) 97 98.1 10/07/25 22:58 Room Air* 0 21 General Appearance: Alert, Oriented X3, Cooperative, No acute distress HEENT: Atraumatic, PERRLA, EOMI, Mucous membr. moist/pink Respiratory: Normal air movement Cardiovascular: Regular rate, Normal S1, Normal S2, No murmurs Abdominal: Normal bowel sounds, Soft, No tenderness, No hepatospenomegaly, No masses Extremities: No clubbing, No cyanosis, No edema, Normal pulses, No tenderness/swelling Skin: No rashes, No significant lesion Neuro: Normal speech, Normal tone, Sensation intact, Cranial nerves 3-12 NL, Reflexes 2+, Other (Generalized weakness) Psych/Mental Status: Mental status NL, Mood NL Labs/Xrays Labs Test 10/07/25 20:20 10/07/25 20:05 10/07/25 19:26 Range/Units Troponin I High Sensitivity 3 L </=34 ng/L Lactic Acid Level 2.0 0.4-2.0 mmol/L White Blood Count 14.1 H 4.4-10.8 10^3/uL Red Blood Count 3.52 L 4.0-5.20 10^6/uL Hemoglobin 10.4 L 12.2-16.2 g/dL Hematocrit 31.6 L 36.0-46.0 % Mean Corpuscular Volume 89.7 80.0-100.0 fL Mean Corpuscular Hemoglobin 29.4 28.0-32.0 pg Mean Corpuscular Hemoglobin Concent 32.8 32.0-36.0 g/dL Red Cell Distribution Width 14.7 H 11.8-14.3 % Platelet Count 272 140-450 10^3/uL Mean Platelet Volume 11.1 H 6.9-10.8 fL Neutrophils (%) (Auto) 80.2 H 37.0-80.0 % Lymphocytes (%) (Auto) 10.1 10.0-50.0 % Monocytes (%) (Auto) 9.1 0.0-12.0 % Eosinophils (%) (Auto) 0.2 0.0-7.0 % Basophils (%) (Auto) 0.4 0.0-2.0 % Neutrophils # (Auto) 11.3 H 1.6-8.6 10 ^3/uL Lymphocytes # (Auto) 1.4 0.4-5.4 10 ^3/uL Monocytes # (Auto) 1.3 0-1.3 10 ^3/uL Eosinophils # (Auto) 0 0-0.8 10 ^3/uL Basophils # (Auto) 0 0-0.2 10 ^3/uL Nucleated Red Blood Cells 0.1 % Prothrombin Time 11.3 9.3-11.8 sec Prothrombin Time INR 1.07 0.9-1.15 Activated Partial Thromboplast Time 32.0 24.5-34.5 SEC D-Dimer, Quantitative 1.57 H 0.0-0.49 mg/L FEU Sodium Level 133 L 136-145 mmol/L Potassium Level 4.2 3.5-5.1 mmol/L Chloride Level 101 98-107 mmol/L Carbon Dioxide Level 20 20-31 mmol/L Anion Gap 12 5-15 Blood Urea Nitrogen 24 H 9-23 mg/dL Creatinine 1.16 H 0.550-1.02 mg/dL Glomerular Filtration Rate Calc 45 >90 mL/min BUN/Creatinine Ratio 20.7 H 10.0-20.0 Serum Glucose 456 *H 74-106 mg/dL Calcium Level 9.0 8.7-10.4 mg/dL Total Bilirubin 0.8 0.2-1.0 mg/dL Aspartate Amino Transferase (AST) 131 H 13-40 U/L Alanine Aminotransferase (ALT) 69 H 7-40 U/L Alkaline Phosphatase 183 H 46-116 U/L B-Type Natriuretic Peptide 218.94 0-100 pg/mL Total Protein 7.7 5.7-8.2 g/dL Albumin 4.3 3.2-4.8 g/dL Amylase Level 823 H 30-118 U/L Lipase 1844 H 12-53 U/L PATIENT: KARTHIK BROCK ACCT: [id number] UNIT: [id number] : 1935 LOC: ER ROOM / BED: / AGE / SEX: 89 / F ADM STATUS: REG ER SERVICE 51 ORDERING PHYSICIAN: ACE RAUSCH MD PROCEDURE(s): CXR1 - CHEST XRAY 1 VIEW REASON: chest pain ORDER NUMBER(s): [id number], ACCESSION NUMBER(s): [id number] CLINICAL HISTORY: Chest pain. TECHNIQUE: Single frontal view of the chest was obtained. COMPARISON: XY CHEST XRAY 1 VIEW on DOS: 08/18/25. FINDINGS: Lungs: Clear. Pleura: No pneumothorax or pleural effusion. Cardiomediastinal silhouette: Normal in size. Aortic atherosclerosis. Bones: No acute osseous abnormality. Imaged Upper Abdomen: Lucency underneath the right hemidiaphragm measuring appro ximately 16 mm in thickness, which is nonspecific. IMPRESSION: 1. No acute cardiopulmonary process. 2. Lucency underneath the right hemidiaphragm measuring approximately 16 mm in thickness, which is nonspecific but concerning for possible intraperitoneal free gas. Recommend clinical correlation. SEPSIS Sepsis Screen Date sepsis recognized/suspect: Oct 07, 2025 Time Sepsis recognized/suspect: 2300 Recent Procedure: No On Antibiotic Therapy: No Respiratory Rate >20: No Heart Rate >90: No Temp<36 C (96.8 F) or >38.3 C: No SBP <90 or MAP <65 mmHG: No New Acute Mental Status Change: No Is the patient on CPAP, BIPAP,: No Physician Orders Electrocardigram (10/07/25 19:05) Electrocardigram (10/07/25 20:05) Electrocardigram (10/07/25 22:05) Chest Xray 1 View (10/07/25 19:52) Blood Culture (10/07/25 19:55) Urinalysis (10/07/25 20:30) Ct Chest/Ab/Pl W Con- Iv Only (10/07/25 22:40) * Gi Dvh Cdl Service Technician (10/07/25 23:24) Ceftriaxone Ivpb Rocephin (10/08/25 09:00) Metronidazole Ivpb Flagyl (10/08/25 06:00) Metronidazole Ivpb Flagyl (10/07/25 23:30) Hydralazine Injection (Apresoline Inject (10/07/25 23:30) Ibuprofen Tablet (Motrin Tablet) (10/07/25 23:30) Aspirin Chewable Tablet (10/08/25 10:00) Type And Screen (10/07/25 23:24) Famotidine Injection (Pepcid Injection) (10/07/25 23:30) Famotidine Injection (Pepcid Injection) (10/08/25 10:00) Consistent Carb(Ccho)Diabetes (10/08/25 Breakfast) Glucose Blood (Accu-Chek Comfort Curve T (10/08/25 00:00) Agressive Insulin Ss (10/08/25 00:00) Dextrose 50% Syringe (10/07/25 23:30) Admit (10/07/25 23:24) Allergies (10/07/25 23:24) Code Status (10/07/25 23:24) 0.9% Ns 1000 Ml (10/07/25 23:30) Oxygen Per Hour (10/07/25 23:24) Hydrocodone-Acet 5/325mg Tab ([place] 5/32 (10/07/25 23:30) Ondansetron Hcl (Zofran) (10/07/25 23:30) Docusate Sodium Capsule (Colace Capsule) (10/07/25 23:30) Fall Risk Precautions In Place QSHIFT (10/07/25 23:24) Complete Blood Count (10/08/25 04:00) Comprehensive Metabolic Panel (10/08/25 04:00) Condition: Serious (10/07/25 23:24) Clear Liq Diet (10/08/25 Breakfast) Maintain Bed Rest (10/07/25 23:24) Sequential Compression Device (10/07/25 ) Nitroglycerin Sublingual (Ntrostat Subli (10/07/25 23:30) Morphine Sulfate Injection (10/07/25 23:30) Stat Ekg For Chest Pain (10/07/25 23:24) Notify Md Of Changes From Base (10/07/25 23:24) Armature Balancer For 24 Hours (12/13/25 23:24) Emergency Dysrhythmia Protocol (10/07/25 23:24) Rhythm Strips Once Every Shift (10/07/25 23:24) Oxygen By Nasal Cannula (10/07/25 23:24) Vital Signs Date Time Temp Pulse Resp B/P (MAP) Pulse Ox O2 Delivery O2 Flow Rate FiO2 10/07/25 22:58 98.1 71 18 114/71 (85) 97 98.1 10/07/25 22:58 71 18 97 Room Air* 0 21 10/07/25 20:44 98.4 93 18 112/51 (71) 98 98.4 10/07/25 19:13 114 10/07/25 19:02 98.6 113 18 143/66 99 98.6 Laboratory Tests Test 10/07/25 19:26 10/07/25 20:05 White Blood Count 14.1 10^3/uL (4.4-10.8) H Lactic Acid Level 2.0 mmol/L (0.4-2.0) Medications Medications Dose Ordered Sig/Jorge Route Start Time Stop Time Status Last Admin Dose Admin Aspirin 325 mg ONCE ONCE PO 10/07/25 20:00 10/07/25 20:01 DC 10/07/25 20:35 325 MG Ceftriaxone Sodium 50 ml @ 100 mls/hr ONCE ONCE IV 10/07/25 20:30 10/07/25 20:59 DC 10/07/25 20:35 100 MLS/HR Insulin Human Regular 5 units ONCE ONCE IV 10/07/25 22:45 10/07/25 22:46 DC 10/07/25 23:06 5 UNITS Ondansetron HCl 4 mg ONCE ONCE IV 10/07/25 20:00 10/07/25 20:01 DC 10/07/25 20:35 4 MG Sodium Chloride 1,000 ml @ 1,000 mls/hr Q1H ONCE IV 10/07/25 20:30 10/07/25 21:29 DC 10/07/25 20:36 1,000 MLS/HR Assessment/Plan Assessment/Plan Acute pancreatitis Hyponatremia Elevated D-dimer Elevated liver enzymes Leukocytosis, unspecified Hyperglycemia due to diabetes mellitus Generalized weakness Plan 1. Admit to telemetry unit 2. Breathing treatment 3. Pain control management 4. IV antibiotic management 5. Management of fluids and electrolytes 6. Consultation for GI/hospitalist 7. Diagnostic test chest CT 8. DVT prophylaxis-on aspirin 9. Repeat labs CBC, CMP in a.m. 10. Home medication reviewed and reconciled 11. Continue with current medical management 12. Treatment plan discussed with patient and RN. Patient verbalized understanding. Plan discussed with: Patient, Other (RN) My Orders Orders - LACIE TRIANA DNP Procedure Category Date Status Time * Gi Dvh Cdl Service Technician CONS 10/07/25 Verified 23:24 Ceftriaxone Ivpb PHA 10/08/25 Verified Rocephin 09:00 Metronidazole Ivpb PHA 10/08/25 Verified Flagyl 06:00 Metronidazole Ivpb PHA 10/07/25 Verified Flagyl 23:30 Hydralazine Injection PHA 10/07/25 Verified (Apresoline Inject 23:30 Ibuprofen Tablet PHA 10/07/25 Verified (Motrin Tablet) 23:30 Aspirin Chewable PHA 10/08/25 Verified Tablet 10:00 Type And Screen BBK 10/07/25 Verified 23:24 Famotidine Injection PHA 10/07/25 Verified (Pepcid Injection) 23:30 Famotidine Injection PHA 10/08/25 Verified (Pepcid Injection) 10:00 Consistent DIET 10/08/25 Verified Carb(Ccho)Diabetes Breakfast Glucose Blood PHA 10/08/25 Verified (Accu-Chek Comfort 00:00 Agressive Insulin Ss PHA 10/08/25 Verified 00:00 Dextrose 50% Syringe PHA 10/07/25 Verified 23:30 Admit ADMIT 10/07/25 Verified 23:24 Allergies PRINCE 10/07/25 Verified 23:24 Code Status CODE 10/07/25 Verified 23:24 0.9% Ns 1000 Ml PHA 10/07/25 Verified 23:30 Oxygen Per Hour RT 10/07/25 Verified 23:24 Hydrocodone-Acet PHA 10/07/25 Verified 5/325mg Tab ([place] 23:30 Ondansetron Hcl PHA 10/07/25 Verified (Zofran) 23:30 Docusate Sodium PHA 10/07/25 Verified Capsule (Colace 23:30 Fall Risk Precautions PRINCE 10/07/[address] 23:24 Complete Blood Count LAB 10/08/25 Verified 04:00 Comprehensive LAB 10/08/25 Verified Metabolic Panel 04:00 Condition: Serious PRINCE 10/07/25 Verified 23:24 Clear Liq Diet DIET 10/08/25 Verified Breakfast Maintain Bed Rest [facility] 10/07/25 Verified 23:24 Sequential [facility] 10/07/25 Verified Compression Device Nitroglycerin MERGED WITH [facility] 10/07/25 Verified Sublingual (Ntrostat 23:30 Morphine Sulfate MERGED WITH [facility] 10/07/25 Verified Injection 23:30 Stat Ekg For Chest [facility] 10/07/25 Verified Pain 23:24 Notify Md Of Changes [facility] 10/07/25 Verified From Base 23:24 Armature Balancer For [facility] 10/07/25 Verified 24 Hours 23:24 Emergency Dysrhythmia [facility] 10/07/25 Verified Protocol 23:24 Rhythm Strips Once [facility] 10/07/25 Verified Every Shift 23:24 Oxygen By Nasal RT 10/07/25 Verified Cannula 23:24 Problem List: (1) Acute pancreatitis (2) Hyponatremia (3) Elevated d-dimer (4) Elevated liver enzymes (5) Leukocytosis, unspecified (6) Hyperglycemia due to diabetes mellitus (7) Generalized weakness Date of Service: Oct 07, 2025 Billing Provider: LACIE TRIANA DNP Common Visit Codes: [id number] INP/OBS CARE (HIGH) LACIE TRIANA DNP Oct 07, 2025 23:33
[2025-10-08] VITALS (8 sets, daily range): BP systolic 106–154; BP diastolic 60–75; PULSE 62–94; RESP 16–17; TEMP 97.1–98.1; O2SAT 90–98
[2025-10-08] MEDS: ACCU-CHEK COMFORT CURVE STRIP VI SCH ×2 (00:17→08:00)
[2025-10-08] MEDS: InsuLIN REG 1unit/0.01ml Soln (100units/ml) SC SCH ×2 (00:17→09:11)
[2025-10-08] MEDS ORDERED: DEXTROSE (50%) 50ML SYRG IV PRN (06:00)
[2025-10-08] MEDS: IOHEXOL 300 MG/ML 100ML BOTTLE IJ ONE (08:18)
[2025-10-08] MEDS: FAMOTIDINE (10MG/ML) 2ML VL IV SCH (09:04)
[2025-10-08 09:20] LABS: Hematocrit 26.3 % (36.0-46.0); Hemoglobin 8.7 g/dL (12.2-16.2); Mean Corpuscular Hemoglobin 29.5 pg (28.0-32.0); Mean Corpuscular Volume 89.3 fL (80.0-100.0); Nucleated Red Blood Cells % 0.0 %
--- NOTE | 2025-10-08 09:31 | DVH ---
EXAM: CT CT CHEST/AB/PL W CON- IV ONLY History: abd / chest / back pain COMPARISON: XY CHEST XRAY 1 VIEW on DOS: 10/07/25, XY CHEST XRAY 1 VIEW on DOS: 08/18/25, CT CT AB PEL WO CON-NO ORAL OR IV on DOS: 06/02/25 TECHNIQUE: Multidetector spiral CT of the abdomen and pelvis was performed from lung bases to pubic symphysis. Intravenous contrast was administered during this examination. Portal venous imaging was obtained. Axial, coronal and sagittal multiplanar reformats were performed by the technologist on a separate workstation. Radiation Dose : 1. Abdomen/Pelvis: CTDIvol 5.7mGy, DLP 385.18 mGy*cm. CONTRAST: Type of contrast: Omnipaque 300 Contrast injected: 100 ml Radiation optimization: All CT scans at this facility use at least one of these dose optimization techniques: automated exposure control mA and/or kV adjustment per patient size (includes targeted exams where dose is matched to clinical indication) or iterative reconstruction. FINDINGS: Lung Bases: Bibasilar nodular densities may reflect atelectasis or mild pneumonia. Liver: The liver is normal in size. No focal lesions. Normal hepatic vascular enhancement. Gallbladder and Biliary Tree: Cholelithiasis with minimal pericholecystic fluid. Spleen: Unremarkable Pancreas: The pancreas is normal in appearance without focal lesions or abnormal enhancement. Adrenal Glands: Unremarkable Kidneys: No hydronephrosis. Bladder: Mild asymmetric wall thickening of the right urinary bladder measuring up to 5 mm. Bowel: The stomach is grossly normal in appearance. Small bowel and colon are normal in caliber and distribution. The appendix is not visualized; however, no secondary findings of acute appendicitis identified. Ascites: Absent Lymphadenopathy: No mesenteric, retroperitoneal or periportal lymphadenopathy. Abdominal Wall and Mesentery: Unremarkable. Vasculature: The visualized abdominal aorta is normal in size and caliber. Abdominal and pelvic vessels demonstrate normal enhancement. Pelvic Organs: Unremarkable Musculoskeletal: No aggressive focal bony lesions, acute fractures or dislocation. IMPRESSION: 1. Cholelithiasis with minimal pericholecystic fluid. Recommend correlation with right upper quadrant ultrasound. 2. Mild asymmetric wall thickening of the right urinary bladder measuring up to 5 mm. Recommend correlation with CT urogram.
[2025-10-08 09:37] LABS: Albumin 3.3 g/dL (3.2-4.8); Anion Gap 10 (5-15); BUN/Creatinine Ratio 17.9 (10.0-20.0); Bilirubin, Total 0.4 mg/dL (0.2-1.0); Blood Urea Nitrogen 19 mg/dL (9-23); Carbon Dioxide 20 mmol/L (20-31); Chloride 107 mmol/L (98-107); Potassium 4.1 mmol/L (3.5-5.1); Sodium 137 mmol/L (136-145); Total Protein 6.2 g/dL (5.7-8.2)
[2025-10-08 09:38] LABS: Alanine Aminotransferase 47 U/L (7-40); Alkaline Phosphatase 127 U/L (46-116); Calcium 7.9 mg/dL (8.7-10.4); Glucose 186 mg/dL (74-106)
--- NOTE | 2025-10-08 13:13 | DVHPN2 ---
Reviewed: Care Plan, H&P, Labs, Medications, Previous Orders, Radiology Changes from previous H/P or p: No Changes Eyes: No Pain, No Vision change, No Conjunctivae inflammation, No Eyelid inflammation, No Other, No Redness ENT: No Ear pain, No Ear discharge, No Nose pain, No Nose discharge, No Nose congestion, No Mouth pain, No Mouth swelling, No Throat pain, No Throat swelling, No Other Cardiovascular: Chest Pain; No Palpitations, No Orthopnea, No Paroxysmal Noc. Dyspnea, No Edema, No Lt Headedness, No Other Respiratory: No Cough, No Dry, No Shortness of breath, No SOB with excertion, No Wheezing, No Hemoptysis, No Pleuritic Pain, No Sputum, No Other Gastrointestinal: Nausea, Vomiting; No Abdominal Pain, No Diarrhea, No Constipation, No Melena, No Hematochezia, No Other Genitourinary: No Dysuria, No Frequency, No Incontinence, No Hematuria, No Retention, No Other Musculoskeletal: No other, No neck pain, No shoulder pain, No arm pain; back pain; No hand pain, No leg pain, No foot pain Skin: No Rash, No Lesions, No Jaundice, No Bruising, No Other Objective Vitals Vital Signs Date Time Temp Pulse Resp B/P (MAP) Pulse Ox O2 Delivery O2 Flow Rate FiO2 10/08/25 12:34 98.1 62 16 132/63 (86) 95 98.1 10/08/25 08:00 Room Air* 0 21 Intake/Output Intake and Output 10/08/25 07:00 Intake Total 1150 ml Balance 1150 ml Intake Oral 0 ml IV Total 1150 ml Medications Current Medications Medications Dose Ordered Sig/Jorge Route Start Time Stop Time Status Last Admin Dose Admin Ceftriaxone Sodium 50 ml @ 100 mls/hr Q24H IV 10/08/25 21:00 Metronidazole 100 ml @ 100 mls/hr Q8HR IV 10/08/25 06:00 10/08/25 05:03 100 MLS/HR Hydralazine HCl 10 mg Q6HP PRN IV 10/07/25 23:30 Ibuprofen 400 mg Q6HP PRN PO 10/07/25 23:30 Aspirin 81 mg DAILY PO 10/08/25 10:00 10/08/25 09:04 81 MG Famotidine 20 mg DAILY IV 10/08/25 10:00 10/08/25 09:04 20 MG Sodium Chloride 1,000 ml @ 120 mls/hr Q8H20M IV 10/07/25 23:30 10/08/25 07:50 120 MLS/HR Acetaminophen/ Hydrocodone Bitart 1 tab Q4HP PRN PO 10/07/25 23:30 Ondansetron HCl 4 mg Q4HP PRN IV 10/07/25 23:30 Docusate Sodium 100 mg BIDPRN PRN PO 10/07/25 23:30 Nitroglycerin 0.4 mg Q5MINP PRN SL 10/07/25 23:30 Morphine Sulfate 2 mg Q30M PRN IV 10/07/25 23:30 Diagnostic Test (Pha) 1 strip IQ4HR 10/08/25 08:00 10/08/25 11:54 1 STRIP Insulin Human Regular IQ4HR SC 10/08/25 08:00 10/08/25 09:11 2 UNITS Dextrose 50 ml UD PRN IV 10/08/25 06:00 Laboratory Results Laboratory Tests 10/08/25 09:00 Chemistry Test 10/07/25:10/08/25 09:00 Albumin 4.3 g/dL (3.2-4.8) 3.3 g/dL (3.2-4.8) Calcium Level 9.0 mg/dL (8.7-10.4) 7.9 mg/dL (8.7-10.4) L Total Protein 7.7 g/dL (5.7-8.2) 6.2 g/dL (5.7-8.2) Coagulation Test 10/07/25: Prothrombin Time 11.3 sec (9.3-11.8) Prothrombin Time INR 1.07 (0.9-1.15) Activated Partial Thromboplast Time 32.0 SEC (24.5-34.5) D-Dimer, Quantitative 1.57 mg/L FEU (0.0-0.49) H Lipid panel Test 10/07/25: Lipase 1844 U/L (12-53) H Cardiac Markers Test 10/07/25: B-Type Natriuretic Peptide 218.94 pg/mL (0-100) LFT Test 10/07/25:10/08/25 09:00 Alanine Aminotransferase (ALT) 69 U/L (7-40) H 47 U/L (7-40) H Alkaline Phosphatase 183 U/L (46-116) H 127 U/L (46-116) H Aspartate Amino Transferase (AST) 131 U/L (13-40) H 62 U/L (13-40) H Total Bilirubin 0.8 mg/dL (0.2-1.0) 0.4 mg/dL (0.2-1.0) Labs and/or images reviewed: Labs reviewed by me, Image(s) reviewed by me Assessment/Plan Assessment/Plan Acute pancreatitis lipase 1200: NPO pantoprazole, consult for GI Dr. Laura Acosta Hyponatremia Elevated D-dimer, venous ultrasound CT chest angiogram Elevated liver enzymes gallbladder ultrasound, consult for Dr. Laura Acosta Leukocytosis, unspecified Hyperglycemia due to diabetes mellitus Generalized weakness Uncontrolled diabetes glucose 456: Diabetic education aggressive sliding scale Hypertension History of recurrent UTI Time spent 65 minutes Advanced care planning time 20 minutes Patient is full code Plan discussed with: Patient Date of Service: Oct 08, 2025 Billing Provider: ANNEL WORTHY MD Common Visit Codes: [id number] CARE 30-74 MIN ANNEL WORTHY MD Oct 08, 2025 13:13
[2025-10-08] MEDS: PANTOPRAZOLE 40 MG/10 ML VIAL INJ IV ONE (13:30)
--- NOTE | 2025-10-08 14:12 | DVH ---
PROCEDURE: CT CT ANGIO CHEST CONTRAST Study Date and Requested Time: 10/08/2025 08:37 AM History: Elevated D-dimer rule out pulmonary embolism COMPARISON: Chest, abdomen and pelvis 10/08/2025 Dose: CTDI: 5.84 mGy DLP: 185.18 mGycm TECHNIQUE: Multiplanar images of the chest are obtained with contrast. 3-D image postprocessing was performed and images were used for interpretation and reporting. FINDINGS: The thyroid gland is unremarkable. No evidence of filling defect within the pulmonary arteries to suggest pulmonary embolism. No evidence of aortic aneurysm or dissection. Sclerotic calcification of the aorta. No pneumothorax. Bilateral dependent atelectasis. Ground-glass opacities of the Posterior lobes, lingula, right middle lobe and bilateral lower lobe. Heart within normal limits. No significant mediastinal or hilar adenopathy. Mild Wall thickening of the distal esophagus. Otherwise, partial view upper abdomen is unremarkable. The Soft tissues are unremarkable. No evidence Of acute osseous abnormalities. IMPRESSION: No evidence of pulmonary embolism, aortic aneurysm, or dissection. Bilateral dependent atelectasis with possible mild pulmonary edema. Wall thickening of the distal esophagus. Correlate for esophagitis.
--- NOTE | 2025-10-08 15:40 | DVH ---
Bilateral lower extremity venous duplex CLINICAL HISTORY: Rule out DVT COMPARISON: None TECHNIQUE: Duplex Doppler evaluation of the deep venous systems of both lower extremities from the common femoral veins to the popliteal veins including color Doppler and spectral/pulsed waveform analysis was performed. FINDINGS: RIGHT SIDE: The common femoral vein demonstrates appropriate compressibility and waveform variability. There is compressibility/patency of the great saphenous vein at the proximal thigh. The femoral vein demonstrates appropriate compressibility and waveform variability. The deep femoral vein demonstrates appropriate compressibility and waveform variability. The popliteal vein demonstrates appropriate compressibility and waveform variability. There is normal compressibility at the tibioperoneal trunk. LEFT SIDE: The common femoral vein demonstrates appropriate compressibility and waveform variability. There is compressibility/patency of the great saphenous vein at the proximal thigh. The femoral vein demonstrates appropriate compressibility and waveform variability. The deep femoral vein demonstrates appropriate compressibility and waveform variability. The popliteal vein demonstrates appropriate compressibility and waveform variability. There is normal compressibility at the tibioperoneal trunk. IMPRESSION: 1. No right or left femoropopliteal venous thrombosis.
[2025-10-08 16:01] LABS: Urine Budding Yeast FEW /hpf (None Seen); Urine Protein, UAD 1+ (Negative); Urine WBC Clumps PRESENT /hpf (None Seen)
--- NOTE | 2025-10-08 17:29 | DVH ---
INDICATION: Elevated liver enzymes TECHNIQUE: Multiple real-time sonographic images of the abdomen were obtained. COMPARISON: US ABDOMEN LIMITED on DOS: 06/02/25 FINDINGS: The liver is homogenous in echogenicity. The liver measures 12.7 cm. No intrahepatic biliary ductal dilatation is noted. The gallbladder wall measures 0.23 cm and is unremarkable. Gallstones no sludge The common duct measures 0.37 cm and is unremarkable. No pericholecystic fluid is noted. No sonographic Jerome's sign. There is echogenic non shadowing structure noted in the gallbladder. Gallbladder appears slightly distended. The right kidney measures 7.8cm. No hydronephrosis. There are stones noted in the right kidney Is a small 1.2 x 1.2 x 1.1 cm anechoic cortical lesion in the right kidney consistent with a renal cyst. The left kidney measures 8 cm. No hydronephrosis. Both kidneys appear echogenic and small in size. There is small amount of [place] nephric fluid in the right and left kidney. In the right kidney there is fullness to the renal pelvis suggesting mild hydronephrosis. The pancreas is not well visualized due to obscuration from bowel gas. The visualized portions of the IVC and aorta are grossly unremarkable. IMPRESSION: 1. Echogenic nonshadowing structures in the gallbladder which appears mildly distended. 2. Both kidneys appear echogenic and small/ atrophic in size. Right kidney measures 7.8 cm kidney measures 8 cm. 3. Nephrolithiasis of the right kidney with mild pyelocaliectasis. 4. There are nonobstructing calculi in the right kidney. 5. There is a 1.2 x 1.2 x 1.1 cm anechoic structure upper pole right kidney consistent with a cortical cyst.
--- NOTE | 2025-10-08 19:32 | DVHINCON2 ---
Date of service: Oct 08, 2025 Referring Physician Kar Tolbert Reason for Consultation Gallstones with pancreatitis History of Present Illness The patient is a 89-year-old female with past medical history of UTIs, pancreatitis, diabetes mellitus, and hypertension who presented to [facility] ED with complaint of chest pain. Patient reports she has been experiencing midsternal chest pain, radiating to the upper back, associated with shortness of breaths, nausea, vomiting, getting worse that prompted this visit. Past Medical History Past Medical History DM, HTN, UTI'S, Pancreatitis Past Surgical History Past Surgical History Denies all surgeries Family History: Hypertension G8 MOTHER Allergies: Coded Allergies: NO KNOWN ALLERGIES (Unverified , 06/02/25) Home Meds Active Scripts Ursodiol (Endy 250) 250 Mg Tab, 250 MG PO TID for 30 Days, #90 TAB Prov:TREVON ANNE [facility] 09/05/25 Cefdinir (Cefdinir) 300 Mg Cap, 1 CAP PO BID for 10 Days, #20 CAP Prov:TREVON ANNE [facility] 09/05/25 Ursodiol (Endy 250) 250 Mg Tab, 250 MG PO TID for 30 Days, #90 TAB Prov:TREVON ANNE [facility] 08/22/25 Cefdinir (Cefdinir) 300 Mg Cap, 1 CAP PO BID for 10 Days, #20 CAP Prov:TREVON ANNE [facility] 08/22/25 Reported Medications Nifedipine (Nifedipine Er) 30 Mg Tab, 1 TAB PO DAILY, #90 TAB 1 Refill 06/04/25 Losartan Potassium (Losartan Potassium) 50 Mg Tab, 50 MG PO DAILY for 30 Days, MG 06/04/25 Isosorbide Dinitrate (Isosorbide Dinitrate) 5 Mg Tab, 5 MG PO HS for 30 Days, MG 06/03/25 Glimepiride (Glimepiride) 2 Mg Tab, 2 MG PO DAILY for 30 Days, MG 06/03/25 Current Medications Current Medications Medications (Trade) Dose Ordered Sig/Jorge Route PRN Reason Start Time Stop Time Status Last Admin Ceftriaxone Sodium 50 ml @ 100 mls/hr Q24H IV 10/08/25 21:00 Metronidazole 100 ml @ 100 mls/hr Q8HR IV 10/08/25 06:00 10/08/25 14:00 Hydralazine HCl (Apresoline Injection) 10 mg Q6HP PRN IV SBP>150 10/07/25 23:30 Ibuprofen (Motrin Tablet) 400 mg Q6HP PRN PO PAIN SCALE 1-3 OR TEMP>100.4 10/07/25 23:30 Aspirin 81 mg DAILY PO 10/08/25 10:00 10/08/25 09:04 Famotidine (Pepcid Injection) 20 mg DAILY IV 10/08/25 10:00 10/08/25 09:04 Diagnostic Test (Pha) (Accu-Chek Comfort Curve T) 1 strip IQ4HR 10/08/25 00:00 10/08/25 05:57 DC 10/08/25 04:09 Insulin Human Regular (InsuLIN R) IQ4HR SC 10/08/25 00:00 10/08/25 05:57 DC 10/08/25 00:17 Dextrose 50 ml UD PRN IV Blood Sugar LESS THAN 60 10/07/25 23:30 10/08/25 05:57 DC Sodium Chloride 1,000 ml @ 120 mls/hr Q8H20M IV 10/07/25 23:30 10/08/25 16:10 Acetaminophen/ Hydrocodone Bitart ([place] 5/325MG Tab) 1 tab Q4HP PRN PO MODERATE PAIN (4-6 PAIN SCALE) 10/07/25 23:30 Ondansetron HCl (Zofran) 4 mg Q4HP PRN IV NAUSEA / VOMITING 10/07/25 23:30 Docusate Sodium (Colace Capsule) 100 mg BIDPRN PRN PO FOR CONSTIPATION 10/07/25 23:30 Nitroglycerin (Ntrostat Sublingual) 0.4 mg Q5MINP PRN SL FOR CHEST PAIN 10/07/25 23:30 Morphine Sulfate 2 mg Q30M PRN IV FOR CHEST PAIN 10/07/25 23:30 Diagnostic Test (Pha) (Accu-Chek Comfort Curve T) 1 strip IQ4HR 10/08/25 08:00 10/08/25 16:00 Insulin Human Regular (InsuLIN R) IQ4HR SC 10/08/25 08:00 10/08/25 09:11 Dextrose 50 ml UD PRN IV Blood Sugar LESS THAN 60 10/08/25 06:00 Pantoprazole Sodium (Protonix) 40 mg DAILY IV 10/09/25 10:00 Vital Signs Vital Signs Date Time Temp Pulse Resp B/P (MAP) Pulse Ox O2 Delivery O2 Flow Rate FiO2 10/08/25 16:31 98.0 72 16 145/73 (97) 96 98.0 10/08/25 08:00 Room Air* 0 21 Labs/Diagnostic Data Labs Test 10/08/25 17:03 10/08/25 15:00 10/08/25 09:00 10/07/25 20:20 Range/Units POC Glucose 122 H 70-106 mg/dl Urine Color Colorless Yellow Urine Clarity Ex.turbid Clear Urine pH 6.5 5.0-9.0 Urine Specific [place] 1.027 1.001-1.035 Urine Protein 1+ H Negative Urine Ketones Negative Negative Urine Blood 2+ H Negative /uL Urine Nitrite Negative Negative Urine Bilirubin Negative Negative Urine Urobilinogen Normal Negative mg/dL Urine Leukocyte Esterase 3+ Negative /uL Urine RBC 66 0 - 4 /hpf Urine WBC Clumps Present None Seen /hpf Urine Microscopic WBC 941 H 0-5 /HPF Urine Squamous Epithelial Cells Few <5 /hpf Urine Bacteria Mod H None Seen /hpf Urine Mucus Many None Seen Urine Yeast (Budding) Few None Seen /hpf Urine Glucose 3+ H Normal mg/dL White Blood Count 10.2 # 4.4-10.8 10^3/uL Red Blood Count 2.94 L 4.0-5.20 10^6/uL Hemoglobin 8.7 #L 12.2-16.2 g/dL Hematocrit 26.3 #L 36.0-46.0 % Mean Corpuscular Volume 89.3 80.0-100.0 fL Mean Corpuscular Hemoglobin 29.5 28.0-32.0 pg Mean Corpuscular Hemoglobin Concent 33.0 32.0-36.0 g/dL Red Cell Distribution Width 14.7 H 11.8-14.3 % Platelet Count 221 140-450 10^3/uL Mean Platelet Volume 10.4 6.9-10.8 fL Neutrophils (%) (Auto) 72.6 37.0-80.0 % Lymphocytes (%) (Auto) 18.1 10.0-50.0 % Monocytes (%) (Auto) 8.4 0.0-12.0 % Eosinophils (%) (Auto) 0.6 0.0-7.0 % Basophils (%) (Auto) 0.3 0.0-2.0 % Neutrophils # (Auto) 7.4 1.6-8.6 10 ^3/uL Lymphocytes # (Auto) 1.9 0.4-5.4 10 ^3/uL Monocytes # (Auto) 0.9 0-1.3 10 ^3/uL Eosinophils # (Auto) 0.1 0-0.8 10 ^3/uL Basophils # (Auto) 0 0-0.2 10 ^3/uL Nucleated Red Blood Cells 0.0 % Sodium Level 137 136-145 mmol/L Potassium Level 4.1 3.5-5.1 mmol/L Chloride Level 107 98-107 mmol/L Carbon Dioxide Level 20 20-31 mmol/L Anion Gap 10 5-15 Blood Urea Nitrogen 19 9-23 mg/dL Creatinine 1.06 H 0.550-1.02 mg/dL Glomerular Filtration Rate Calc 51 >90 mL/min BUN/Creatinine Ratio 17.9 10.0-20.0 Serum Glucose 186 H 74-106 mg/dL Calcium Level 7.9 L 8.7-10.4 mg/dL Total Bilirubin 0.4 0.2-1.0 mg/dL Aspartate Amino Transferase (AST) 62 H 13-40 U/L Alanine Aminotransferase (ALT) 47 H 7-40 U/L Alkaline Phosphatase 127 H 46-116 U/L Total Protein 6.2 5.7-8.2 g/dL Albumin 3.3 3.2-4.8 g/dL Troponin I High Sensitivity 3 L </=34 ng/L Test 10/07/25 20:05 10/07/25 19:26 Range/Units Lactic Acid Level 2.0 0.4-2.0 mmol/L Prothrombin Time 11.3 9.3-11.8 sec Prothrombin Time INR 1.07 0.9-1.15 Activated Partial Thromboplast Time 32.0 24.5-34.5 SEC D-Dimer, Quantitative 1.57 H 0.0-0.49 mg/L FEU B-Type Natriuretic Peptide 218.94 0-100 pg/mL Amylase Level 823 H 30-118 U/L Lipase 1844 H 12-53 U/L RUQ USG IMPRESSION: 1. Echogenic nonshadowing structures in the gallbladder which appears mildly distended. 2. Both kidneys appear echogenic and small/ atrophic in size. Right kidney measures 7.8 cm kidney measures 8 cm. 3. Nephrolithiasis of the right kidney with mild pyelocaliectasis. 4. There are nonobstructing calculi in the right kidney. 5. There is a 1.2 x 1.2 x 1.1 cm anechoic structure upper pole right kidney consistent with a cortical cyst. Problems(with codes): (1) Generalized weakness (2) Leukocytosis, unspecified (3) Elevated liver enzymes (4) Pancreatitis (5) Gallstones (6) UTI (urinary tract infection) Plan/Recommendation Plan IV fluid hydration IV antibiotics Suspect gallstone pancreatitis Continue IV antibiotics Surgical consult HIDA scan Monitor labs Protonix 40 mg IV daily Plan discussed with: Patient, Other (Nurse) THOMAS OLVERA MD Oct 08, 2025 19:32
--- NOTE | 2025-10-08 21:04 | ECG ---
[facility] Test Date: 2025-10-07 Test Time: 19:13:45 Pat Name: KARTHIK BROCK Department: ED Room: 0232T A Gender: F Compressor Service Technician: ELMER : 1935 Requested By: ACE RAUSCH Order Number: [id number] Reading MD: Ricky Perez Measurements Intervals [place] Rate: 114 P: 41 DE: 162 QRS: 62 QRSD: 109 T: 21 QT: 322 QTc: 444 Interpretive Statements Sinus tachycardia Baseline wander in lead(s) I,II,aVR Electronically Signed On 10-12-2025 8:33:59 PST by Ricky Perez Please click the below link to view image of tracing.
[2025-10-09] VITALS (8 sets, daily range): BP systolic 140–166; BP diastolic 69–78; PULSE 61–82; RESP 17; TEMP 97.4–98.2; O2SAT 96–98
[2025-10-09 07:26] LABS: Hematocrit 28.0 % (36.0-46.0); Hemoglobin 9.3 g/dL (12.2-16.2); Mean Corpuscular Hemoglobin 29.4 pg (28.0-32.0); Mean Corpuscular Volume 88.2 fL (80.0-100.0); Nucleated Red Blood Cells % 0.0 %
[2025-10-09 07:28] LABS: Alanine Aminotransferase 35 U/L (7-40); Albumin 3.3 g/dL (3.2-4.8); Anion Gap 10 (5-15); BUN/Creatinine Ratio 14.0 (10.0-20.0); Blood Urea Nitrogen 12 mg/dL (9-23); Carbon Dioxide 22 mmol/L (20-31); Glucose 103 mg/dL (74-106); Potassium 3.9 mmol/L (3.5-5.1); Sodium 142 mmol/L (136-145); Total Protein 6.4 g/dL (5.7-8.2)
[2025-10-09 07:40] LABS: Alkaline Phosphatase 119 U/L (46-116); Bilirubin, Total 0.3 mg/dL (0.2-1.0); Calcium 8.1 mg/dL (8.7-10.4); Chloride 110 mmol/L (98-107); Lipase 206 U/L (12-53)
[2025-10-09] MEDS: PANTOPRAZOLE 40 MG/10 ML VIAL INJ IV SCH (09:32)
[2025-10-09] MEDS: hydrALAZINE HCL 20 MG/ML VL IV PRN (09:33)
--- NOTE | 2025-10-09 10:20 | DVHPN2 ---
Reviewed: Care Plan, H&P, Labs, Medications, Previous Orders, Radiology Changes from previous H/P or p: No Changes Eyes: No Pain, No Vision change, No Conjunctivae inflammation, No Eyelid inflammation, No Other, No Redness ENT: No Ear pain, No Ear discharge, No Nose pain, No Nose discharge, No Nose congestion, No Mouth pain, No Mouth swelling, No Throat pain, No Throat swelling, No Other Cardiovascular: Chest Pain; No Palpitations, No Orthopnea, No Paroxysmal Noc. Dyspnea, No Edema, No Lt Headedness, No Other Respiratory: No Cough, No Dry, No Shortness of breath, No SOB with excertion, No Wheezing, No Hemoptysis, No Pleuritic Pain, No Sputum, No Other Gastrointestinal: Nausea, Vomiting; No Abdominal Pain, No Diarrhea, No Constipation, No Melena, No Hematochezia, No Other Genitourinary: No Dysuria, No Frequency, No Incontinence, No Hematuria, No Retention, No Other Musculoskeletal: No other, No neck pain, No shoulder pain, No arm pain; back pain; No hand pain, No leg pain, No foot pain Skin: No Rash, No Lesions, No Jaundice, No Bruising, No Other Objective Vitals Vital Signs Date Time Temp Pulse Resp B/P (MAP) Pulse Ox O2 Delivery O2 Flow Rate FiO2 10/09/25 09:33 166/70 10/09/25 09:00 97.4 66 17 98 97.4 10/09/25 07:59 Room Air* 0 21 Intake/Output Intake and Output 10/09/25 07:00 Intake Total 1450 ml Balance 1450 ml Intake Oral 1200 ml IV Total 250 ml # Voids 9 Medications Current Medications Medications Dose Ordered Sig/Jorge Route Start Time Stop Time Status Last Admin Dose Admin Ceftriaxone Sodium 50 ml @ 100 mls/hr Q24H IV 10/08/25 21:00 10/08/25 20:16 100 MLS/HR Metronidazole 100 ml @ 100 mls/hr Q8HR IV 10/08/25 06:00 10/09/25 05:10 100 MLS/HR Hydralazine HCl 10 mg Q6HP PRN IV 10/07/25 23:30 10/09/25 09:33 10 MG Ibuprofen 400 mg Q6HP PRN PO 10/07/25 23:30 Aspirin 81 mg DAILY PO 10/08/25 10:00 10/08/25 09:04 81 MG Famotidine 20 mg DAILY IV 10/08/25 10:00 10/08/25 09:04 20 MG Sodium Chloride 1,000 ml @ 120 mls/hr Q8H20M IV 10/07/25 23:30 10/09/25 09:14 120 MLS/HR Acetaminophen/ Hydrocodone Bitart 1 tab Q4HP PRN PO 10/07/25 23:30 Ondansetron HCl 4 mg Q4HP PRN IV 10/07/25 23:30 Docusate Sodium 100 mg BIDPRN PRN PO 10/07/25 23:30 Nitroglycerin 0.4 mg Q5MINP PRN SL 10/07/25 23:30 Morphine Sulfate 2 mg Q30M PRN IV 10/07/25 23:30 Diagnostic Test (Pha) 1 strip IQ4HR 10/08/25 08:00 10/09/25 08:00 1 STRIP Insulin Human Regular IQ4HR SC 10/08/25 08:00 10/08/25 09:11 2 UNITS Dextrose 50 ml UD PRN IV 10/08/25 06:00 Pantoprazole Sodium 40 mg DAILY IV 10/09/25 10:00 10/09/25 09:32 40 MG Laboratory Results Laboratory Tests 10/09/25 04:36 Chemistry Test 10/09/25 04:36 Albumin 3.3 g/dL (3.2-4.8) Calcium Level 8.1 mg/dL (8.7-10.4) L Total Protein 6.4 g/dL (5.7-8.2) Lipid panel Test 10/09/25 04:36 Lipase 206 U/L (12-53) H LFT Test 10/09/25 04:36 Alanine Aminotransferase (ALT) 35 U/L (7-40) Alkaline Phosphatase 119 U/L (46-116) H Aspartate Amino Transferase (AST) 38 U/L (13-40) Total Bilirubin 0.3 mg/dL (0.2-1.0) Urinalysis Test 10/08/25 15:00 Urine Color Colorless (Yellow) Urine Clarity Ex.turbid (Clear) Urine pH 6.5 (5.0-9.0) Urine Specific [place] 1.027 (1.001-1.035) Urine Protein 1+ (Negative) H Urine Ketones Negative (Negative) Urine Blood 2+ /uL (Negative) H Urine Nitrite Negative (Negative) Urine Bilirubin Negative (Negative) Urine Urobilinogen Normal mg/dL (Negative) Urine Leukocyte Esterase 3+ /uL (Negative) Urine RBC 66 /hpf (0 - 4) Urine WBC Clumps Present /hpf (None Seen) Urine Microscopic WBC 941 /HPF (0-5) H Urine Squamous Epithelial Cells Few /hpf (<5) Urine Bacteria Mod /hpf (None Seen) H Urine Mucus Many (None Seen) Urine Yeast (Budding) Few /hpf (None Seen) Urine Glucose 3+ mg/dL (Normal) H Microbiology Microbiology Date/Time Source Procedure Growth Status 10/07/25 20:15 Blood Blood Culture - Preliminary NO GROWTH AFTER 24 HOURS OF INCUBATION. Resulted Labs and/or images reviewed: Labs reviewed by me, Image(s) reviewed by me Assessment/Plan Assessment/Plan Acute pancreatitis possibly gallstone pancreatitis lipase 1200: NPO pantoprazole, consult for GI Dr. Laura Acosta appreciated, Hyponatremia Elevated D-dimer, DVT ruled out PE ruled out Elevated liver enzymes Gallstones, consult for Dr. Laura Acosta, HIDA scan pending Multiple small right kidney stones Leukocytosis, unspecified Hyperglycemia due to diabetes mellitus Generalized weakness Uncontrolled diabetes glucose 456: Diabetic education aggressive sliding scale Hypertension History of recurrent UTI Time spent 65 minutes Advanced care planning time 20 minutes Patient is full code Examined the patient and discuss the diagnosis management and prognosis with the patient's daughter Carline [phone] at bedside with the help of certified first assistant Discussed about placing the patient on hospice because of recurrent admissions and the daughter is agreeable to discuss with the hospice nurse. Plan discussed with: Patient My Orders Orders - ANNEL WORTHY MD Procedure Category Date Status Time Ct Angio Chest CT 10/08/25 Resulted Contrast 13:17 Bilat Lower Dvt US 10/08/25 Resulted 13:17 * Gi [facility]/Surgery Registered Nurse CONS 10/08/25 Transmitted 13:17 Npo (Nothing By DIET 10/08/25 Transmitted Mouth) Diet Lunch Pantoprazole PHA 10/09/25 In Process (Protonix) 10:00 Abdomen Limited US 10/08/25 Resulted 13:16 Date of Service: Oct 09, 2025 Billing Provider: ANNEL WORTHY MD Common Visit Codes: [id number] INP/OBS CARE(HIGH) ANNEL WORTHY MD Oct 09, 2025 10:20
--- NOTE | 2025-10-09 14:43 | DVH ---
PROCEDURE: [place] NM HIDA SCAN Exam Date: 10/09/2025 10:59 AM CLINICAL HISTORY: r/o cholecystitis Comparison Study: [facility] HIDA SCAN on DOS: 08/21/25 Nuclear Medicine Hepatobiliary Scan. TECHNIQUE: Following the intravenous administration of 3.5 mCi of technetium 99m labeled Choletec multiple planar abdominal planar images were obtained in anterior projection in 5 minute intervals for 30 minutes . Right lateral images were obtained at 60 minutes after injection. FINDINGS: The liver appears grossly normal in size. There is no abnormal persistence of the cardiac or blood pool activity. There is prompt visualization of the gallbladder and excretion of activity into the small bowel. IMPRESSION: Unremarkable hepatobiliary study without evidence of acute cholecystitis.
[2025-10-10 01:00] VITALS: BP 149/75; PULSE 80; RESP 18; TEMP 97.7; O2SAT 98
[2025-10-10 05:00] VITALS: BP 158/76; PULSE 73; RESP 18; TEMP 97.9; O2SAT 96
[2025-10-10 08:00] VITALS: PULSE 76; RESP 18; O2SAT 99
[2025-10-10 08:56] VITALS: BP 155/76; PULSE 72; RESP 16; TEMP 98.4; O2SAT 99
--- NOTE | 2025-10-10 09:27 | DVHPN2 ---
Reviewed: Care Plan, H&P, Labs, Medications, Previous Orders, Radiology Changes from previous H/P or p: No Changes Eyes: No Pain, No Vision change, No Conjunctivae inflammation, No Eyelid inflammation, No Other, No Redness ENT: No Ear pain, No Ear discharge, No Nose pain, No Nose discharge, No Nose congestion, No Mouth pain, No Mouth swelling, No Throat pain, No Throat swelling, No Other Cardiovascular: Chest Pain; No Palpitations, No Orthopnea, No Paroxysmal Noc. Dyspnea, No Edema, No Lt Headedness, No Other Respiratory: No Cough, No Dry, No Shortness of breath, No SOB with excertion, No Wheezing, No Hemoptysis, No Pleuritic Pain, No Sputum, No Other Gastrointestinal: Nausea, Vomiting; No Abdominal Pain, No Diarrhea, No Constipation, No Melena, No Hematochezia, No Other Genitourinary: No Dysuria, No Frequency, No Incontinence, No Hematuria, No Retention, No Other Musculoskeletal: No other, No neck pain, No shoulder pain, No arm pain; back pain; No hand pain, No leg pain, No foot pain Skin: No Rash, No Lesions, No Jaundice, No Bruising, No Other Objective Vitals Vital Signs Date Time Temp Pulse Resp B/P (MAP) Pulse Ox O2 Delivery O2 Flow Rate FiO2 10/10/25 08:56 98.4 72 16 155/76 (102) 99 98.4 10/09/25 20:00 Room Air* 0 21 Intake/Output Intake and Output 10/10/25 07:00 Intake Total 1600 ml Output Total 700 ml Balance 900 ml Intake Oral 0 ml IV Total 1600 ml Output Urine Total 700 ml # Voids 2 Medications Current Medications Medications Dose Ordered Sig/Jorge Route Start Time Stop Time Status Last Admin Dose Admin Ceftriaxone Sodium 50 ml @ 100 mls/hr Q24H IV 10/08/25 21:00 10/09/25 20:48 100 MLS/HR Metronidazole 100 ml @ 100 mls/hr Q8HR IV 10/08/25 06:00 10/10/25 05:35 100 MLS/HR Hydralazine HCl 10 mg Q6HP PRN IV 10/07/25 23:30 10/09/25 09:33 10 MG Ibuprofen 400 mg Q6HP PRN PO 10/07/25 23:30 Aspirin 81 mg DAILY PO 10/08/25 10:00 10/08/25 09:04 81 MG Famotidine 20 mg DAILY IV 10/08/25 10:00 10/08/25 09:04 20 MG Sodium Chloride 1,000 ml @ 120 mls/hr Q8H20M IV 10/07/25 23:30 10/09/25 17:10 120 MLS/HR Acetaminophen/ Hydrocodone Bitart 1 tab Q4HP PRN PO 10/07/25 23:30 Ondansetron HCl 4 mg Q4HP PRN IV 10/07/25 23:30 Docusate Sodium 100 mg BIDPRN PRN PO 10/07/25 23:30 Nitroglycerin 0.4 mg Q5MINP PRN SL 10/07/25 23:30 Morphine Sulfate 2 mg Q30M PRN IV 10/07/25 23:30 Diagnostic Test (Pha) 1 strip IQ4HR 10/08/25 08:00 10/10/25 08:02 1 STRIP Insulin Human Regular IQ4HR SC 10/08/25 08:00 10/08/25 09:11 2 UNITS Dextrose 50 ml UD PRN IV 10/08/25 06:00 Pantoprazole Sodium 40 mg DAILY IV 10/09/25 10:00 10/09/25 09:32 40 MG Laboratory Results Laboratory Tests 10/09/25 04:36 Urinalysis Test 10/08/25 15:00 Urine Color Colorless (Yellow) Urine Clarity Ex.turbid (Clear) Urine pH 6.5 (5.0-9.0) Urine Specific [place] 1.027 (1.001-1.035) Urine Protein 1+ (Negative) H Urine Ketones Negative (Negative) Urine Blood 2+ /uL (Negative) H Urine Nitrite Negative (Negative) Urine Bilirubin Negative (Negative) Urine Urobilinogen Normal mg/dL (Negative) Urine Leukocyte Esterase 3+ /uL (Negative) Urine RBC 66 /hpf (0 - 4) Urine WBC Clumps Present /hpf (None Seen) Urine Microscopic WBC 941 /HPF (0-5) H Urine Squamous Epithelial Cells Few /hpf (<5) Urine Bacteria Mod /hpf (None Seen) H Urine Mucus Many (None Seen) Urine Yeast (Budding) Few /hpf (None Seen) Urine Glucose 3+ mg/dL (Normal) H Microbiology Microbiology Date/Time Source Procedure Growth Status 10/07/25 20:15 Blood Blood Culture - Preliminary NO GROWTH AFTER 48 HOURS OF INCUBATION. Resulted Labs and/or images reviewed: Labs reviewed by me, Image(s) reviewed by me Assessment/Plan Assessment/Plan Acute pancreatitis possibly gallstone pancreatitis lipase 1200: NPO pantoprazole, consult for GI Dr. Laura Acosta appreciated, Acute Hyponatremia Elevated D-dimer, DVT ruled out PE ruled out Elevated liver enzymes Gallstones, consult for Dr. Laura Acosta, Acute cholecystitis ruled out by negative HIDA scan Multiple small right kidney stones Systemic inflammatory response syndrome Hyperglycemia due to diabetes mellitus Generalized weakness Uncontrolled diabetes glucose 456: Diabetic education aggressive sliding scale Hypertension History of recurrent UTI Time spent 65 minutes Advanced care planning time 20 minutes Patient is full code Examined the patient and discuss the diagnosis management and prognosis with the patient's daughter Carline [phone] at bedside with the help of american history teacher Discussed about placing the patient on hospice because of recurrent admissions and the daughter is agreeable to discuss with the hospice nurse. Plan discussed with: Patient My Orders Orders - ANNEL WORTHY MD Procedure Category Date Status Time Urine Bacterial TANIA 10/09/25 In Process Culture 10:08 Date of Service: Oct 10, 2025 Billing Provider: ANNEL WORTHY MD Common Visit Codes: [id number] INP/OBS CARE(HIGH) ANNEL WORTHY MD Oct 10, 2025 09:27
[2025-10-10] MEDS ORDERED: METR-344 PO (10:12)
[2025-10-10] MEDS ORDERED: LEVO500T91 PO (10:12)
[2025-10-10] MEDS ORDERED: PANT40T PO (10:12)
--- NOTE | 2025-10-10 10:18 | DVHDS2 ---
Discharge Summary Date of Admission Oct 07, 2025 at 23:24 Date of Discharge: Oct 10, 2025 Admitting Diagnosis Abdominal pain Wounds: None Labs/Diagnostic Data: Laboratory Results Test 10/10/25 08:01 10/09/25 04:36 10/08/25 15:00 10/07/25 20:20 POC Glucose 114 mg/dl (70-106) White Blood Count 6.8 10^3/uL (4.4-10.8) Red Blood Count 3.17 10^6/uL (4.0-5.20) Hemoglobin 9.3 g/dL (12.2-16.2) Hematocrit 28.0 % (36.0-46.0) Mean Corpuscular Volume 88.2 fL (80.0-100.0) Mean Corpuscular Hemoglobin 29.4 pg (28.0-32.0) Mean Corpuscular Hemoglobin Concent 33.4 g/dL (32.0-36.0) Red Cell Distribution Width 14.4 % (11.8-14.3) Platelet Count 220 10^3/uL (140-450) Mean Platelet Volume 11.0 fL (6.9-10.8) Neutrophils (%) (Auto) 52.9 % (37.0-80.0) Lymphocytes (%) (Auto) 27.6 % (10.0-50.0) Monocytes (%) (Auto) 11.8 % (0.0-12.0) Eosinophils (%) (Auto) 6.7 % (0.0-7.0) Basophils (%) (Auto) 1.0 % (0.0-2.0) Neutrophils # (Auto) 3.6 10 ^3/uL (1.6-8.6) Lymphocytes # (Auto) 1.9 10 ^3/uL (0.4-5.4) Monocytes # (Auto) 0.8 10 ^3/uL (0-1.3) Eosinophils # (Auto) 0.5 10 ^3/uL (0-0.8) Basophils # (Auto) 0.1 10 ^3/uL (0-0.2) Nucleated Red Blood Cells 0.0 % Sodium Level 142 mmol/L (136-145) Potassium Level 3.9 mmol/L (3.5-5.1) Chloride Level 110 mmol/L (98-107) Carbon Dioxide Level 22 mmol/L (20-31) Anion Gap 10 (5-15) Blood Urea Nitrogen 12 mg/dL (9-23) Creatinine 0.86 mg/dL (0.550-1.02) Glomerular Filtration Rate Calc 65 mL/min (>90) BUN/Creatinine Ratio 14.0 (10.0-20.0) Serum Glucose 103 mg/dL (74-106) Calcium Level 8.1 mg/dL (8.7-10.4) Total Bilirubin 0.3 mg/dL (0.2-1.0) Aspartate Amino Transferase (AST) 38 U/L (13-40) Alanine Aminotransferase (ALT) 35 U/L (7-40) Alkaline Phosphatase 119 U/L (46-116) Total Protein 6.4 g/dL (5.7-8.2) Albumin 3.3 g/dL (3.2-4.8) Lipase 206 U/L (12-53) Urine Color Colorless (Yellow) Urine Clarity Ex.turbid (Clear) Urine pH 6.5 (5.0-9.0) Urine Specific [place] 1.027 (1.001-1.035) Urine Protein 1+ (Negative) Urine Ketones Negative (Negative) Urine Blood 2+ /uL (Negative) Urine Nitrite Negative (Negative) Urine Bilirubin Negative (Negative) Urine Urobilinogen Normal mg/dL (Negative) Urine Leukocyte Esterase 3+ /uL (Negative) Urine RBC 66 /hpf (0 - 4) Urine WBC Clumps Present /hpf (None Seen) Urine Microscopic WBC 941 /HPF (0-5) Urine Squamous Epithelial Cells Few /hpf (<5) Urine Bacteria Mod /hpf (None Seen) Urine Mucus Many (None Seen) Urine Yeast (Budding) Few /hpf (None Seen) Urine Glucose 3+ mg/dL (Normal) Troponin I High Sensitivity 3 ng/L (</=34) Test 10/07/25 20:05 10/07/25 19:26 Lactic Acid Level 2.0 mmol/L (0.4-2.0) Prothrombin Time 11.3 sec (9.3-11.8) Prothrombin Time INR 1.07 (0.9-1.15) Activated Partial Thromboplast Time 32.0 SEC (24.5-34.5) D-Dimer, Quantitative 1.57 mg/L FEU (0.0-0.49) B-Type Natriuretic Peptide 218.94 pg/mL (0-100) Amylase Level 823 U/L (30-118) Other Laboratory Tests 10/09/25 04:36 Brief Hx & Hospital Course: 89-year-old female came in complaining of abdominal pain lipase was around 2000 came down to 200 at the time of discharge kept on NPO . Given pantoprazole Levaquin and Flagyl seen by GI Dr. Laura Acosta . The patient had gallstones by CT. HIDA scan is negative. The patient has a gallstone pancreatitis which has been resolving mild UTI treated with Rocephin. Patient feels better with the daughter at the bedside. Diabetes controlled with the insulin sliding scale history of recurrent UTI. Patient is afebrile tolerating regular diet vital signs are stable discharged home. Sixty-four pantoprazole Levaquin for UTI and Flagyl transmitted to the pharmacy. She was advised to follow up with the primary Dr for referral to surgeon for elective cholecystectomy Discussed discharge plan with the daughter Carline with the help of it teacher at bedside. Consults/Reason for consult GI Dr. Laura Acosta Operations or Procedures CT abdomen pelvis without contrast Gallbladder ultrasound HIDA scan Condition at Discharge: Fair Final Diagnosis/Problems List Acute pancreatitis possibly gallstone pancreatitis lipase 1200: NPO pantoprazole, consult for GI Dr. Laura Acosta appreciated, Acute Hyponatremia Elevated D-dimer, DVT ruled out PE ruled out Elevated liver enzymes Gallstones, consult for Dr. Laura Acosta, Acute cholecystitis ruled out by negative HIDA scan Multiple small right kidney stones Systemic inflammatory response syndrome Hyperglycemia due to diabetes mellitus Generalized weakness Uncontrolled diabetes glucose 456: Diabetic education aggressive sliding scale Hypertension History of recurrent UTI Discharge Disposition: Home Discharge Instruct/Medications Diet: Cardiac 2g Na,low cholest Activity: Light activity Follow Up/Referral: Follow up With your primary Dr in one week Resume all previous home medications Follow up with the surgeon through your primary Dr for elective gallbladder surgery Medications: Pantoprazole Levaquin Flagyl Transmitted to pharmacy Scheduled Cefdinir (Cefdinir), 1 CAP PO BID Cefdinir (Cefdinir), 1 CAP PO BID Glimepiride (Glimepiride), 2 MG PO DAILY, (Reported) Isosorbide Dinitrate (Isosorbide Dinitrate), 5 MG PO HS, (Reported) Levofloxacin Hemihydrate (Levaquin 500 Mg), 1 TAB PO DAILY Losartan Potassium (Losartan Potassium), 50 MG PO DAILY, (Reported) Metronidazole (Flagyl), 1 TAB PO TID Nifedipine (Nifedipine Er), 1 TAB PO DAILY, (Reported) Pantoprazole Sodium Sesquihydr (Pantoprazole Sodium), 40 MG PO BID Ursodiol (Endy 250), 250 MG PO TID Ursodiol (Endy 250), 250 MG PO TID 39 (Time taken for discharge summary 39 minutes) Discharge Statement: "Patient was advised to return to the ER or call 911 if any headaches, dizziness, shortness of breath, chest pain, abdominal pain, bleeding, fevers, or worsening of medical condition. Patient was counseled about treatment plan, medications, possible side effects, patientverbalized understanding. All questions were answered to the best of my ability. This discharge took greater then 30 minutes in planning, reviewing documentation, counseling the patient, and discussing with other team members." ASSESSMENT ASSESSMENT Hospital Course Improved Assessment Acute pancreatitis possibly gallstone pancreatitis lipase 1200: NPO pantoprazole, consult for GI Dr. Laura Acosta appreciated, Acute Hyponatremia Elevated D-dimer, DVT ruled out PE ruled out Elevated liver enzymes Gallstones, consult for Dr. Laura Acosta, Acute cholecystitis ruled out by negative HIDA scan Multiple small right kidney stones Systemic inflammatory response syndrome Hyperglycemia due to diabetes mellitus Generalized weakness Uncontrolled diabetes glucose 456: Diabetic education aggressive sliding scale Hypertension History of recurrent UTI Date of Service: Oct 10, 2025 Billing Provider: ANNEL WORTHY MD Common Visit Codes: 16931-TQI/OBS DISCH DAY >30min ANNEL WORTHY MD Oct 10, 2025 10:18
[2025-10-10 11:17] VITALS: BP 166/70; TEMP 36.9
--- NOTE | 2025-10-10 15:00 | DVHPN2 ---
Progress Note - Dictate Date Seen: Oct 10, 2025 (Late entry Time of visit 12 noon) Medical Necessity Reason Pt with a Central, PICC or Fol: No Subjective No new complaints Patient is stable She is tolerating a diet Lipase level is trending down Leukocytosis has improved HIDA scan is negative vital signs Vital Sign Date Time Temp Pulse Resp B/P (MAP) Pulse Ox O2 Delivery O2 Flow Rate FiO2 10/10/25 11:17 36.9 10/10/25 08:56 72 16 155/76 (102) 99 10/10/25 08:00 Room Air* 0 21 Total Intake and Output 10/09/25 10/09/25 10/10/25 15:00 23:00 07:00 Intake Total 1400 ml 200 ml Output Total 700 ml Balance 1400 ml -500 ml laboratory and microbiology Laboratory Tests 10/09/25 04:36 Test 10/09/25 04:36 Range/Units Serum Glucose 103 74-106 mg/dL Problems(with codes): (1) Gallstones (2) Elevated liver enzymes (3) Leukocytosis, unspecified (4) Generalized weakness (5) Acute pancreatitis Prognosis Plan Discharge planning is in progress Advance diet as tolerated Outpatient follow up with GI Services in 4-6 weeks or if patient has recurrent symptoms Plan discussed with: Other (Dr Librado Hinson) THOMAS OLVERA MD Oct 10, 2025 15:00
== END 2025-10-10 12:30 | disposition home or self-care (01) | DRG 282 ==
LOC: ER 19:00 → OVERFLOW 23:24 → TELE-EAST 10-08 01:35
PROVIDERS: ADMIT Family Medicine; ATTEND Family Medicine
DX: K85.10 Biliary acute pancreatitis without necrosis or infection (principal); N17.0 Acute kidney failure with tubular necrosis; E87.1 Hypo-osmolality and hyponatremia; E11.65 Type 2 diabetes mellitus with hyperglycemia; R65.10 Systemic inflammatory response syndrome (SIRS) of non-infectious origin without acute organ dysfunction; I10 Essential (primary) hypertension; N20.0 Calculus of kidney; K80.20 Calculus of gallbladder without cholecystitis without obstruction; Z87.440 Personal history of urinary (tract) infections; Z82.49 Family history of ischemic heart disease and other diseases of the circulatory system; Z79.899 Other long term (current) drug therapy
CPT/HCPCS: 36415; 71045; 71260; 71275; 74177; 76705; 78226; 80053; 81001; 82150; 82962; 83605; 83690; 83880; 84484; 85025; 85379; 85610; 85730; 86850; 86900; 86901; 87040; 87086; 93005; 93970; 99291; G0378; J1815; J2405; J2470; J3490